=== PATIENT | male | born 1995 | race Caucasian/White ===

== ENCOUNTER 2017-02-05 17:08 | Inpatient (IN) | payer OTHER ==
--- NOTE | 2017-02-05 18:01 | EDPHY ---
Mental Health General Previous Psychiatric History: substance abuse Smoking Status: Never smoked Time Patient Placed on Detainer: 17:53 Time Patient Placed on M1 Hold: 22:00 Course: patient remained stable over course of my shift, eval by mental health, awaiting transfer to inpatient facility Narrative: CHIEF COMPLAINT: mental health evaluation HISTORY OF PRESENT ILLNESS: 21-year-old male presents emergency department escorted by security after he was found naked outside of the emergency department. When approached by security the patient reports he took his clothes off because he is worried about a spider bite on his shoulder. The patient reports he noticed this spider bite yesterday, he denies fevers or chills, nausea or vomiting. Patient also reports he thinks he may have typhoid as he has been drinking out of the river. He states this is just a generalized feeling he has "that will cause problems in the future". When questioned about his allergies to medications he states he is allergic to acetaminophen and Aleve , when asked about the reactions he has to these he states it is "some manipulative force with a delicate plan to do the most harm to me". Patient reports "light kava use and light marijuana use". Pt reports he ate a kava pill 3 hours prior to arrival. He denies other drug use. Patient reports he was seen by a psychiatrist last week that was forced upon him due to probation. He denies previous mental health diagnosis. Patient denies auditory or visual hallucinations, he denies homicidal or suicidal ideations. REVIEW OF SYSTEMS: A comprehensive 10 point review of systems is otherwise negative aside from elements mentioned in the history of present illness. Physical Exam Gen: Alert and Oriented, NAD HEENT: PERRL, moist mucous membranes NECK: no meningismus CV: regular rate and regular rhythm PULM: CTAB, no wheezes ABDOMEN: soft, non tender to palpation, BS present BACK: Nontender NEURO: Neurologically grossly intact EXTREMITIES: normal appearing SKIN: Mild Sunburn to upper back and shoulders, small 1 cm x 1 cm area of mild erythema with central scab to posterior right shoulder, no surrounding erythema , no fluctuance, no drainage, nontender PSYCH: Suspicious affect. (Yeny Salazar) Medical Decision Making: Patient has been evaluated by [facility] and has been placed on an M1 hold. [address] [place] [address] has accepted him and he is pending transfer. (Yeny Salazar) 0500: This patient accepted by Dr. Nicole inpatient psychiatric services. Emtala form filled out. Appropriate transfer be set up. Patient be transported to [address] [place] [address]. (Joe Carlton) - Objective Vital Signs: Initial Vital Signs Temperature (C) 36.6 C 02/05/17 17:13 Heart Rate 67 02/05/17 17:13 Respiratory Rate 18 02/05/17 17:13 Blood Pressure 143/89 H 02/05/17 17:13 O2 Sat (%) 97 02/05/17 17:13 O2 Delivery Mode Room Air Allergies/Adverse Reactions: acetaminophen [From Tylenol] Allergy (Verified 02/05/17 17:12) aleeve Allergy (Uncoded 02/05/17 17:12) Home Medications: Medication Instructions Recorded NK [No Known Home Meds] 02/05/17 Laboratory Results: Laboratory Results 02/05/17 18:00 02/05/17 18:00 02/05/17 02/05/17 02/05/17 18:00 18:00 17:55 WBC 7.06 10^3/uL 10^3/uL (3.80-9.50) RBC 5.07 10^6/uL 10^6/uL (4.40-6.38) Hgb 15.0 g/dL g/dL (13.7-17.5) Hct 43.1 % % (40.0-51.0) MCV 85.0 fL fL (81.5-99.8) MCH 29.6 pg pg (27.9-34.1) MCHC 34.8 g/dL g/dL (32.4-36.7) RDW 13.2 % % (11.5-15.2) Plt Count 188 10^3/uL 10^3/uL (150-400) MPV 10.7 fL fL (8.7-11.7) Neut % (Auto) 56.5 % % (39.3-74.2) Lymph % (Auto) 28.2 % % (15.0-45.0) [place] % (Auto) 13.9 % H % (4.5-13.0) Eos % (Auto) 0.4 % L % (0.6-7.6) Baso % (Auto) 0.7 % % (0.3-1.7) Nucleat RBC Rel Count 0.0 % % (0.0-0.2) Absolute Neuts (auto) 3.99 10^3/uL 10^3/uL (1.70-6.50) Absolute Lymphs (auto) 1.99 10^3/uL 10^3/uL (1.00-3.00) Absolute Monos (auto) 0.98 10^3/uL H 10^3/uL (0.30-0.80) Absolute Eos (auto) 0.03 10^3/uL 10^3/uL (0.03-0.40) Absolute Basos (auto) 0.05 10^3/uL 10^3/uL (0.02-0.10) Absolute Nucleated RBC 0.00 10^3/uL 10^3/uL (0-0.01) Immature Gran % 0.3 % % (0.0-1.1) Seg Neutrophils % 52 % % Band Neutrophils % 4 % % Lymphocytes % 29 % % Monocytes % 13 % % Eosinophils % 1 % % Metamyelocytes % 1 % % Immature Gran # 0.02 10^3/uL 10^3/uL (0.00-0.10) Absolute Seg Neuts 3.67 10^/uL 10^/uL (1.70-6.50) Absolute Band Neuts 0.28 10^3/uL 10^3/uL (0.00-0.70) Absolute Lymphocytes 2.05 10^3/uL 10^3/uL (1.00-3.00) Absolute Monocytes 0.92 10^3/uL H 10^3/uL (0.30-0.80) Absolute Eosinophils 0.07 10^3/uL 10^3/uL (0.03-0.40) Absolute Metamyelocyte 0.07 10^3/mL H 10^3/mL (0.00-0.00) RBC/WBC/PLT Morphology NORMAL (NORMAL) Atypical Lymphocytes 1+ H Platelet Estimate ADEQUATE (ADEQ) Sodium 141 mEq/L mEq/L (134-144) Potassium 3.7 mEq/L mEq/L (3.5-5.2) Chloride 108 mEq/L mEq/L (97-110) Carbon Dioxide 17 mEq/l L mEq/l (22-31) Anion Gap 16 mEq/L mEq/L (8-16) BUN 22 mg/dL mg/dL (7-23) Creatinine 1.0 mg/dL mg/dL (0.7-1.3) Estimated GFR > 60 Glucose 73 mg/dL mg/dL (70-100) Calcium 9.8 mg/dL mg/dL (8.5-10.4) Urine Opiates Screen NEGATIVE (NEGATIVE) Urine Barbiturates NEGATIVE (NEGATIVE) Ur Phencyclidine Scrn NEGATIVE (NEGATIVE) Ur Amphetamine Screen NEGATIVE (NEGATIVE) U Benzodiazepines Scrn NEGATIVE (NEGATIVE) Urine Cocaine Screen NEGATIVE (NEGATIVE) U Marijuana (THC) Screen NON-NEGATIVE H (NEGATIVE) Ethyl Alcohol < 10 mg/dL mg/dL (0-10) Departure - Departure Disposition: [facility] IP Clinical Impression: Acute psychosis Condition: Fair Referrals: NOEL PRICE [Other] - As per Instructions
[2017-02-05 18:28] LABS: % IMMATURE GRANULYOCYTES 0.3 % (0.0-1.1); ABSOLUTE IMMATURE GRANULOCYTES 0.02 10^3/uL (0.00-0.10); ADD DIFF? NO; ADD MORPH? NO; ADD SCAN? YES; FRAGMENT RBC FLAG 0 (0-99); HEMATOCRIT 43.1 % (40.0-51.0); LEFT SHIFT FLG 0 (0-99); LIPEMIA HEMOLYSIS FLAG 90 (0-99); MEAN CELL HEMOGLOBIN 29.6 pg (27.9-34.1); MEAN CELL HEMOGLOBIN CONCENTR. 34.8 g/dL (32.4-36.7); MEAN PLATELET VOLUME 10.7 fL (8.7-11.7); PLATELET CLUMPS FLAG 0 (0-99); PLATELET COUNT 188 10^3/uL (150-400); RED BLOOD CELL COUNT 5.07 10^6/uL (4.40-6.38); RED CELL DISTRIBUTION WIDTH 13.2 % (11.5-15.2)
[2017-02-05 18:32] LABS: ATYPICAL LYMPHOCYTE FLAG 170 (0-99)
[2017-02-05 18:41] LABS: ANION GAP 16 mEq/L (8-16); CALCIUM 9.8 mg/dL (8.5-10.4); CARBON DIOXIDE 17 mEq/l (22-31); CHLORIDE 108 mEq/L (97-110); ETHANOL SERUM < 10 mg/dL (0-10); GLOMERULAR FILTRATION RATE > 60; GLUCOSE 73 mg/dL (70-100); POTASSIUM 3.7 mEq/L (3.5-5.2); SODIUM 141 mEq/L (134-144)
[2017-02-05 19:12] LABS: SCAN POSITIVE
[2017-02-05 19:15] LABS: PLATELET ESTIMATE ADEQUATE (ADEQ)
[2017-02-06] MEDS ORDERED: MAG HYDROX/AL HYDROX/SIMETH 30 ML UDCUP PO PRN (15:26)
[2017-02-06] MEDS ORDERED: NICOTINE POLACRILEX 2 MG GUM B PRN (15:26)
[2017-02-06] MEDS ORDERED: MAGNESIUM HYDROXIDE 30 ML UDCUP PO PRN (15:26)
[2017-02-06] MEDS: OLANZapine DISINTEGR 10 MG TAB PO PRN (16:23)
[2017-02-06] MEDS: OLANZapine DISINTEGR 10 MG TAB PO SCH (20:47)
--- NOTE | 2017-02-07 00:07 | BAPA ---
[f rep st] ADMISSION PSYCHIATRIC ASSESSMENT DATE OF SERVICE: 02/06/2017 CHIEF COMPLAINT: "There was a spider bite on my back...they asked me if I wanted a psych evaluation, I said yes because I needed some intellectual stimulation." HISTORY OF PRESENT ILLNESS: Patient is a 21-year-old male who presented to the emergency department escorted by security after he was found naked outside of the [facility] Emergency Department. He reports he took his clothes off because he was worried about a spider bite on his shoulder. He also reported concerns about having typhoid as he had been drinking out of the river, and states this was just a generalized feeling he had "that will cause problems in the future." He admitted to "light cava use and light marijuana use", eating a cava pill 3 hours prior to arrival. He denied other drug use. He reported having seen a psychiatrist 1 week ago, which was forced upon him due to probation, but denies any mental health diagnosis. On evaluation by [facility], patient described himself as "home free" rather than homeless, and has been living in the [facility]. He denied any suicidal or homicidal ideation, he denied any auditory or visual hallucinations. ED physician requested psychiatric evaluation due to patient's bizarre behavior and responses to questions. He reported apparently a recent legal charge related to public disturbance, stating he had to use the restroom somewhere near [address] [place] [address] in [place] and did not have shoes and attempted to go into perhaps a restaurant. "I wanted to use the restroom and they kicked me out. I felt the collective need to experience their absolute will, so I did it in the middle of the sidewalk." ED physician asked if he experienced auditory or visual hallucinations, and patient nodded his head yes and said nothing thereafter. When asked why he was on the inpatient psychiatric unit, patient responded "I do not know." He denied feeling depressed, denied psychotic symptoms of auditory or visual hallucinations, although stated he gets "a little paranoid", and defines this by "I get indecisive and cannot think, I feel impurity in my body and it takes over my thoughts." He endorsed periods of rafael lasting "3 seconds...these are moments of our evolution, it just happened." Uneaten lunch tray noted in his room. When asked about the food, he stated he last had a meal 4 days ago and has been sustaining himself with cava pills. He responded "I have no live food, all I have is cava...I have a problem with food and the carcinogens in it, the earth is not pure any more, there is so much energy in the air, which is dampened by this concoction we are all being given...aluminum , GMO's, phosphorus." He expressed paranoia about food and air quality and may not have been eating recently because of this. PRIOR PSYCHIATRIC HISTORY: As noted in HPI, patient apparently had psychiatric assessment mandated by probation 1 week ago, although more details are not known at this time. He states he saw a therapist at that time on [address] in [place], Shaun Greene, PhD. He also admitted having an evaluation at [facility] perhaps in the psychiatric emergency department twice in the recent past. Regarding previous psychiatric admissions, patient became acutely tearful and anxious, responding "they forced me into handcuffs, gave me pills and injections if I did not take the pills." He seemed very traumatized by whatever previous inpatient psychiatric hospitalization he experienced, which may have involved restraints and involuntary medication. He added that his parents would not help him, although indicated they were involved in helping get him hospitalized. This was in [place], [place] where he lived prior to driving to [place] in September 2016. MEDICATIONS: Currently none. PAST MEDICAL HISTORY: Recent spider bite evaluated in the emergency room. Patient also noted with several abrasions healing on his arms. Medical evaluation unremarkable with unremarkable labs in ED and urine toxicology screen positive for marijuana. ALLERGIES: Reported to Aleve and acetaminophen with reactions being described as "some manipulative force with a delicate plan to do the most harm to me." PRIOR SUBSTANCE USE HISTORY: Patient denied any history of IV drug abuse. He reports having "tried all", but none in 3 months and no history of substance use treatment. Denies alcohol use. Reports using Kava and THC with recent ingestion of Kava pill prior to admission and "light" marijuana use. Urine tox screen positive for marijuana. FAMILY PSYCHIATRIC HISTORY: Patient denies knowing of any mental illness in his family. LEGAL HISTORY: Patient reports being on probation for disturbing the peace, being charged for apparently urinating in public as noted in HPI. SOCIAL HISTORY: Patient is single. Never . No children. Moved grew up in [place], [place] where he has family support, was living with his parents until September when he left for [place] "for the music." He reports that he would like to go back to [place] "if I could get back, but I want to go to [place], [place], [facility], [facility], and [place]" as well. He has recently been homeless. 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 His eye contact was good. Speech was normal rate and volume and articulate. Mood was "very hungry" and when asked why he did not eat lunch, he again stated "I was waiting for dumper mold cleaner food." Mood was "fine." Affect was labile, initially euthymic and engaged, although somewhat apprehensive, abruptly becoming tearful, sobbing, and anxious when relating past inpatient psychiatric hospitalization experience. Required redirection and support to regain control of affect. Did add "I am in an adolescent mind set and my thoughts get more primitive as my mind cycles." Denied current auditory or visual hallucinations. Denied any suicidal thoughts or thoughts to harm others. Thoughts were illogical, disorganized with paranoid content. Insight and judgment were both poor. Cognition was generally intact. When discussing medications and possible benefits for his current mind state, he began laughing almost uncontrollably, reporting that "I started vibing off Zyprexa" at the mention of the name of this medication. He denies ever having heard of this medication before and apparently found it amusing. IMPRESSION: A 21-year-old male with history of previous psychiatric admission, presents for admission on M1 for grave disability due to bizarre thoughts, disorganized thoughts, and labile affect. Patient endorsed recent use of Kava and marijuana, which may have contributed to his current presentation, however, clinically the patient seems he may likely have an underlying primary psychiatric disorder more than attributable to substance use , although substance use possibly contributing to destabilization. May have underlying psychotic or mood disorder. He is felt to be gravely disabled, unable to care for himself as noted by his disheveled state, thin habitus, poor oral intake and continued expressed paranoia about food. It seems he had been living with his family until September of this year when he left and came to [place], and has apparently been homeless using substances intermittently and having progressive worsening of his mental illness. ADMISSION DIAGNOSIS: 1. 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 Rule out bipolar mood disorder, manic with psychotic features. 2. Cannabis use disorder, unspecified. Rule out substance induced psychotic disorder. PLAN: Will admit to [address] [place] [address]. Continue M1. Hold and place on safety precautions. Consistently denied any suicidal ideation. No history of harm to others so presently no suicide precautions or assault precautions are indicated. Discussed briefly medication options with the patient and recommended Zyprexa, will start 10 mg p.o. q.h.s. with 5 mg p.o. q.4-6 hours p.r.n., also lorazepam p.r.n. Will informally monitor oral intake and percent of meal eaten. Patient appears thin, expresses paranoia about food, and as if he has not been taking good care of himself recently. Also apparently has not been sleeping well having reported 3 hours per night recently. Likely continues on probation so this will need to be addressed, and perhaps compliance with mental health treatment can continue to be a part of his probation as it seems to already be. Collateral from family, prior hospitalization and recent evaluation by therapist last week would be beneficial in further assessing and treating this patient. Estimated length of stay is 5-7 days. /[id number]/MODL MTDD
--- NOTE | 2017-02-07 18:44 | BCON ---
[f rep st] BEHAVIORAL HEALTH CONSULTATION INTERNAL MEDICINE CONSULTATION DATE OF CONSULTATION: 02/07/2017 REASON FOR REFERRAL: Medical clearance for inpatient behavioral health stay. REFERRING PHYSICIAN: Dr. Nicole. HISTORY OF PRESENT ILLNESS: The patient presented to the [facility] emergency departm ent 2 days ago. He was found naked outside of the emergency department. He thought he had a spider bite on his shoulder. He made bizarre statements, was evaluated by the mental health team and admi tted for further psychiatric care. He currently complains of fatigue and says that he does not have energy for "the tasks at hand," ges turing to the table in his room with multiple food items on it. PAST MEDICAL HISTORY: He denies any history of any medical illnesses. PAST SURGICAL HISTORY: He denies surgeries. MEDICATIONS: He denies taking any medications. ALLERGIES: He reports allergies to acetaminophen and naproxen. SOCIAL HISTORY: He is homeless. He reports he has had several years of college. He is a tobacco s moker as well as a marijuana smoker and he reports he uses the drug Kava. FAMILY HISTORY: Noncontributory. REVIEW OF SYSTEMS: He denies fevers or chills. He denies recent weight change. He denies nausea, vomiting, constipation, or diarrhea. He denies cough or dyspnea. Otherwise, a 10-point review of s tems is negative. PHYSICAL EXAMINATION: VITAL SIGNS: Blood pressure is 98/57 at 6 o'clock this morning. His heart r ate was 51, his respiratory rate was 14, his oxygen saturation was 94% on room air. His temperature was 36.4 degrees centigrade. His weight is 58.9 kg for a body mass index of 19.2. GENERAL: This is an underweight-appearing man standing in his room, sits down for the exam, cooperative and in no acute distress, with long unkempt hair. HEENT: Extraocular movements are intact. Pupils are equal , round, and reactive to light. Mucous membranes are moist. Dentition is in good condition. NECK: Supple. HEART: Regular rate and rhythm with no murmurs, rubs, or gallops. LUNGS: Clear to ausc ultation bilaterally. ABDOMEN: Scaphoid, soft, nontender, nondistended, with normoactive bowel dylan nds. EXTREMITIES: There is no cyanosis, clubbing, or edema. NEUROLOGIC: He is alert and generall y oriented to situation. Orientation to date was not checked. Cranial nerves 2-[address] There is no focal weakness. Sensation is intact to light touch, and gait is within normal limi ts. SKIN: He has several abrasions with eschar, one over his left scapula, another over his left e lbow, with no signs of infection. LABORATORY STUDIES: Laboratory studies drawn in the emergency department 2 days ago: CBC was overa ll within normal limits. He had a minor elevation of absolute monocytes of no clinical significance . Serum chemistry showed a slightly low carbon dioxide at 17 and otherwise renal function and elect rolytes were within normal limits. Toxicology screen in the serum was negative for ethyl alcohol, i n the urine was non-negative for marijuana but was negative for other substances of abuse. ASSESSMENT/RECOMMENDATIONS: 1. Mental health issues, pending further evaluation and management per Psychiatry and the mental [facility] team. 2. Underweight status. Unclear whether he has had recent weight loss. Could be related to his psy chiatric condition. Advise observing his oral intake to ensure that he is getting adequate nutritio n. 3. Fatigue of unclear etiology. If it does not improve, consider checking a thyroid though he does not otherwise overtly appear to be hypothyroid. 4. Abrasions. Expect these to heal with no intervention indicated. 5. Polysubstance abuse with a urine toxicology screen positive for marijuana and admitted use of Ka va, which is a sedative and anxiolytic. He might benefit from specific substance abuse treatment. 6. Tobacco dependence syndrome. Advised smoking cessation. I see no medical contraindications to this patient's continued stay on the inpatient [facility] service or to any psychiatric medications or procedures. Thank you very much for including me in the care of this patient. Please do not hesitate to contact me or the hospitalist service should there be need for further medical evaluation. /[id number]/MODL
[2017-02-07] MEDS: LORazepam 0.5 MG TAB PO PRN (20:36)
[2017-02-07] MEDS: OLANZapine DISINTEGR 10 MG TAB PO SCH (20:36)
--- NOTE | 2017-02-08 07:37 | SOAPPROG ---
SOAP Progress Note Assessment/Plan: Assessment: Plan: 02/07/17 09:00 DAY UPDATE: Pt presents as 21 y/o SWM admitted to on M1 for c/o acute psychotic decompensation; pt self referred to ED, found naked standing outside ED by Security in a confused/psychotic state. Apparently has been homeless for extended time, arrested for urinating in public in [place] about 1 week ago and briefly jailed, bonded out and received mandated psychiatric assessment by Shaun Greene PhD - result unknown and no known rx intervention. Intake from parents per CC earlier revealed pt has been deteriorating over past 2 years following attending a rave constitution party in October 2014 and ingesting unknown drugs at the time. He was previously arrested in [place] in ? 2015 for defecating in ;public and placed on probation. Father drove pt back to family home in [place] after this incident but pt apparently had to return to [place] to serve out his probation. History is unclear but pt does currently have a probation office in [place]. Parents also report pt was hospitalized as a psychiatric inpt prior to returning to [place] in September 2016; was dx'd with Bipolar Disorder but apparently left shortly after [place] and has been in [place] for past 5 months. 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 Pt medically cleared, presented to [facility] and on admission to as evidencing PI,circumscribed persecutory and grandiose delusions, affective lability, ? mood elevation, dysphoria, MIRTHA, overly abstract and bizarre thought process, expressing wish to return to family home and parents. He reportedly is an only child; has attended college but not graduated; uses TLC and Kava regularly but no other known drugs; is clinically underweight and been compromised in capactiy to care for himself on the streeets for extended time. Physical exam negative for active problems, TS + for [facility] only and other lab screen unremarkable. ON EXAM: presents as thin, unkempt young adult male; speaks softly and with vaqueness; does say early on he does not want any medications but did state he has taken Zydis/Zyprexa 10 mg hs twice since admission; thought pattern evidences MIRTHA and overly abstract ideation, no overt H/D eleicited; currently dysphoric wiht observed manic elements. Did give verbal permission for Team to speak to parents. ASSESSMENT/PLAN: residual psychotic acuity - diagnosis unclear; dysphoric - dx' ed as Bipolar by previous workup; have not r/o'd substance use problems/ no change in meds or management today; will expedite expansion of data base from collaterals Objective: Vital Signs Temp Pulse Resp BP Pulse Ox 36.6 C 47 L 16 103/69 98 02/08/17 06:00 02/08/17 06:00 02/08/17 06:00 02/08/17 06:00 02/08/17 06:00 ICD10 Worksheet Patient Problems: Problems Problem Status Onset Acute psychosis Acute
--- NOTE | 2017-02-08 11:53 | SOAPPROG ---
SOAP Progress Note Assessment/Plan: Assessment: Plan: 02/07/17 09:00 DAY UPDATE: Pt presents as 21 y/o SWM admitted to on M1 for c/o acute psychotic decompensation; pt self referred to ED, found naked standing outside ED by Security in a confused/psychotic state. Apparently has been homeless for extended time, arrested for urinating in public in [place] about 1 week ago and briefly jailed, bonded out and received mandated psychiatric assessment by Shaun Greene PhD - result unknown and no known rx intervention. Intake from parents per CC earlier revealed pt has been deteriorating over past 2 years following attending a rave republican in October 2014 and ingesting unknown drugs at the time. He was previously arrested in [place] in ? 2015 for defecating in ;public and placed on probation. Father drove pt back to family home in [place] after this incident but pt apparently had to return to [place] to serve out his probation. History is unclear but pt does currently have a probation office in [place]. Parents also report pt was hospitalized as a psychiatric inpt prior to returning to [place] in September 2016; was dx'd with Bipolar Disorder but apparently left shortly after DC and has been in [place] for past 5 months. 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 Pt medically cleared, presented to [facility] and on admission to as evidencing PI,circumscribed persecutory and grandiose delusions, affective lability, ? mood elevation, dysphoria, MIRTHA, overly abstract and bizarre thought process, expressing wish to return to family home and parents. He reportedly is an only child; has attended college but not graduated; uses TLC and Kava regularly but no other known drugs; is clinically underweight and been compromised in capacity to care for himself on the streets for extended time. Physical exam negative for active problems, TS + for [facility] only and other lab screen unremarkable. ON EXAM: presents as thin, unkempt young adult male; speaks softly and with vaqueness; does say early on he does not want any medications but did state he has taken Zydis/Zyprexa 10 mg hs twice since admission; thought pattern evidences MIRTHA and overly abstract ideation, no overt H/D elicited; currently dysphoric wiht observed manic elements. Did give verbal permission for Team to speak to parents. ASSESSMENT/PLAN: residual psychotic acuity - diagnosis unclear; dysphoric - dx' ed as Bipolar by previous workup; have not r/o'd substance use problems/ no change in meds or management today; will expedite expansion of data base from collaterals 02/08/17 11:45 DAY ' UPDATE/EXAM: Nursing reports pt continues to comply with Zydis 10 mg hs, is observed to be calmer, more organized albeit with residual overly abstract and bizarre thought process; other psychotic elements not r/o'd/ on direct exam indeed presents with better organization of thought process b/w residual MIRTHA; responsive to reintegrative support; states he wishes to return home when stable and again agrees with my contacting parents; acknowledges that life course has been downhill after trying to attend college in fall 2013 and that a factor in slide was the heavy use of cannabis. ASSESSMENT/PLAN: early phase improvement/ no change in meds or management; case review with emphasis on mobilizing pt into milieu and group program; call to FOC pending Objective: Vital Signs Temp Pulse Resp BP Pulse Ox 36.6 C 47 L 16 103/69 98 02/08/17 06:00 02/08/17 06:00 02/08/17 06:00 02/08/17 06:00 02/08/17 06:00 ICD10 Worksheet Patient Problems: Problems Problem Status Onset Acute psychosis Acute
[2017-02-08] MEDS: OLANZapine DISINTEGR 10 MG TAB PO SCH (22:00)
--- NOTE | 2017-02-09 08:49 | SOAPPROG ---
SOAP Progress Note Assessment/Plan: Assessment: Plan: 02/07/17 09:00 DAY UPDATE: Pt presents as 21 y/o SWM admitted to on M1 for c/o acute psychotic decompensation; pt self referred to ED, found naked standing outside ED by Security in a confused/psychotic state. Apparently has been homeless for extended time, arrested for urinating in public in [place] about 1 week ago and briefly jailed, bonded out and received mandated psychiatric assessment by Shaun Greene PhD - result unknown and no known rx intervention. Intake from parents per CC earlier revealed pt has been deteriorating over past 2 years following attending a rave democrat in October 2014 and ingesting unknown drugs at the time. He was previously arrested in [place] in ? 2015 for defecating in ;public and placed on probation. Father drove pt back to family home in [place] after this incident but pt apparently had to return to [place] to serve out his probation. History is unclear but pt does currently have a probation office in [place]. Parents also report pt was hospitalized as a psychiatric inpt prior to returning to [place] in September 2016; was dx'd with Bipolar Disorder but apparently left shortly after DC and has been in [place] for past 5 months. 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 Pt medically cleared, presented to [facility] and on admission to as evidencing PI,circumscribed persecutory and grandiose delusions, affective lability, ? mood elevation, dysphoria, MIRTHA, overly abstract and bizarre thought process, expressing wish to return to family home and parents. He reportedly is an only child; has attended college but not graduated; uses TLC and Kava regularly but no other known drugs; is clinically underweight and been compromised in capacity to care for himself on the streets for extended time. Physical exam negative for active problems, TS + for [facility] only and other lab screen unremarkable. ON EXAM: presents as thin, unkempt young adult male; speaks softly and with vaqueness; does say early on he does not want any medications but did state he has taken Zydis/Zyprexa 10 mg hs twice since admission; thought pattern evidences MIRTHA and overly abstract ideation, no overt H/D elicited; currently dysphoric wiht observed manic elements. Did give verbal permission for Team to speak to parents. ASSESSMENT/PLAN: residual psychotic acuity - diagnosis unclear; dysphoric - dx' ed as Bipolar by previous workup; have not r/o'd substance use problems/ no change in meds or management today; will expedite expansion of data base from collaterals 02/08/17 11:45 DAY UPDATE/EXAM: Nursing reports pt continues to comply with Zydis 10 mg hs, is observed to be calmer, more organized albeit with residual overly abstract and bizarre thought process; other psychotic elements not r/o'd/ on direct exam indeed presents with better organization of thought process b/w residual MIRTHA; responsive to reintegrative support; states he wishes to return home when stable and again agrees with my contacting parents; acknowledges that life course has been downhill after trying to attend college in fall 2013 and that a factor in slide was the heavy use of cannabis. ASSESSMENT/PLAN: early phase improvement/ no change in meds or management; case review with emphasis on mobilizing pt into milieu and group program; call to FOC pending 02/09/17 DAY UPDATE/EXAM: Objective: Vital Signs Temp Pulse Resp BP Pulse Ox 36.6 C 50 L 16 99/62 L 100 02/09/17 06:00 02/09/17 06:00 02/09/17 06:00 02/09/17 06:00 02/09/17 06:00 ICD10 Worksheet Patient Problems: Problems Problem Status Onset Acute psychosis Acute
--- NOTE | 2017-02-09 15:29 | SOAPPROG ---
SOAP Progress Note Assessment/Plan: Assessment: Plan: 02/07/17 09:00 DAY UPDATE: Pt presents as 21 y/o SWM admitted to on M1 for c/o acute psychotic decompensation; pt self referred to ED, found naked standing outside ED by Security in a confused/psychotic state. Apparently has been homeless for extended time, arrested for urinating in public in [place] about 1 week ago and briefly jailed, bonded out and received mandated psychiatric assessment by Shaun Greene PhD - result unknown and no known rx intervention. Intake from parents per CC earlier revealed pt has been deteriorating over past 2 years following attending a rave republican in October 2014 and ingesting unknown drugs at the time. He was previously arrested in [place] in ? 2015 for defecating in ;public and placed on probation. Father drove pt back to family home in [place] after this incident but pt apparently had to return to [place] to serve out his probation. History is unclear but pt does currently have a probation office in [place]. Parents also report pt was hospitalized as a psychiatric inpt prior to returning to [place] in September 2016; was dx'd with Bipolar Disorder but apparently left shortly after DC and has been in [place] for past 5 months. 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 Pt medically cleared, presented to [facility] and on admission to as evidencing PI,circumscribed persecutory and grandiose delusions, affective lability, ? mood elevation, dysphoria, MIRTHA, overly abstract and bizarre thought process, expressing wish to return to family home and parents. He reportedly is an only child; has attended college but not graduated; uses TLC and Kava regularly but no other known drugs; is clinically underweight and been compromised in capacity to care for himself on the streets for extended time. Physical exam negative for active problems, TS + for [facility] only and other lab screen unremarkable. ON EXAM: presents as thin, unkempt young adult male; speaks softly and with vaqueness; does say early on he does not want any medications but did state he has taken Zydis/Zyprexa 10 mg hs twice since admission; thought pattern evidences MIRTHA and overly abstract ideation, no overt H/D elicited; currently dysphoric wiht observed manic elements. Did give verbal permission for Team to speak to parents. ASSESSMENT/PLAN: residual psychotic acuity - diagnosis unclear; dysphoric - dx' ed as Bipolar by previous workup; have not r/o'd substance use problems/ no change in meds or management today; will expedite expansion of data base from collaterals 02/08/17 11:45 DAY UPDATE/EXAM: Nursing reports pt continues to comply with Zydis 10 mg hs, is observed to be calmer, more organized albeit with residual overly abstract and bizarre thought process; other psychotic elements not r/o'd/ on direct exam indeed presents with better organization of thought process b/w residual MIRTHA; responsive to reintegrative support; states he wishes to return home when stable and again agrees with my contacting parents; acknowledges that life course has been downhill after trying to attend college in fall 2013 and that a factor in slide was the heavy use of cannabis. ASSESSMENT/PLAN: early phase improvement/ no change in meds or management; case review with emphasis on mobilizing pt into milieu and group program; call to FOC pending 02/09/17 DAY UPDATE/EXAM: Nursing re;ports patient more organized, in behavioral control, compliant with cares but did not take hs Zyprexa and is currntly resenting as meds resistant/ on direct exam pt is calm, cooperative, conversant; minimizing problems and p;resenting in mildly defiant manner his right "to live my life" and preoccupied with DC; does stay in affective control and evidences prepsychotic denial/distortion and circumscribed IOR. INTAKE/FOC: Father describes pt's acutely psychotic state last year when bonded out of [place] [facility] and driven back to [place].; pt hospitalized acutely for 13 days and given Risperdal, Depakote, and depot Invega, stabilized but did not follow up with outpt rx; father states he did not noticeably regress prior to returning to [place] in September to complete his probationary period and was relatively uninformed about pt's course since arriving back in [place] 4 + months ago. ASSESSMENT/PLAN: further improved descriptively with minimal residual residual psychosis and no evident residual rafael; is now meds resistant/ will contact pt' s PO to clarify further history of present illness and remaining terms of probation; will reassess approach to current meds resistance. Objective: Vital Signs Temp Pulse Resp BP Pulse Ox 36.6 C 50 L 16 99/62 L 100 02/09/17 06:00 02/09/17 06:00 02/09/17 06:00 02/09/17 06:00 02/09/17 06:00 ICD10 Worksheet Patient Problems: Problems Problem Status Onset Acute psychosis Acute
[2017-02-09] MEDS: OLANZapine DISINTEGR 10 MG TAB PO SCH (20:41)
[2017-02-09] MEDS: LORazepam 0.5 MG TAB PO PRN (20:58)
--- NOTE | 2017-02-10 07:59 | SOAPPROG ---
SOAP Progress Note Assessment/Plan: Assessment: Plan: 02/07/17 09:00 DAY UPDATE: Pt presents as 21 y/o SWM admitted to on M1 for c/o acute psychotic decompensation; pt self referred to ED, found naked standing outside ED by Security in a confused/psychotic state. Apparently has been homeless for extended time, arrested for urinating in public in [place] about 1 week ago and briefly jailed, bonded out and received mandated psychiatric assessment by Shaun Greene PhD - result unknown and no known rx intervention. Intake from parents per CC earlier revealed pt has been deteriorating over past 2 years following attending a rave republican in October 2014 and ingesting unknown drugs at the time. He was previously arrested in [place] in ? 2015 for defecating in ;public and placed on probation. Father drove pt back to family home in [place] after this incident but pt apparently had to return to [place] to serve out his probation. History is unclear but pt does currently have a probation office in [place]. Parents also report pt was hospitalized as a psychiatric inpt prior to returning to [place] in September 2016; was dx'd with Bipolar Disorder but apparently left shortly after DC and has been in [place] for past 5 months. 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 Pt medically cleared, presented to [facility] and on admission to as evidencing PI,circumscribed persecutory and grandiose delusions, affective lability, ? mood elevation, dysphoria, MIRTHA, overly abstract and bizarre thought process, expressing wish to return to family home and parents. He reportedly is an only child; has attended college but not graduated; uses TLC and Kava regularly but no other known drugs; is clinically underweight and been compromised in capacity to care for himself on the streets for extended time. Physical exam negative for active problems, TS + for [facility] only and other lab screen unremarkable. ON EXAM: presents as thin, unkempt young adult male; speaks softly and with vaqueness; does say early on he does not want any medications but did state he has taken Zydis/Zyprexa 10 mg hs twice since admission; thought pattern evidences MIRTHA and overly abstract ideation, no overt H/D elicited; currently dysphoric wiht observed manic elements. Did give verbal permission for Team to speak to parents. ASSESSMENT/PLAN: residual psychotic acuity - diagnosis unclear; dysphoric - dx' ed as Bipolar by previous workup; have not r/o'd substance use problems/ no change in meds or management today; will expedite expansion of data base from collaterals 02/08/17 11:45 DAY UPDATE/EXAM: Nursing reports pt continues to comply with Zydis 10 mg hs, is observed to be calmer, more organized albeit with residual overly abstract and bizarre thought process; other psychotic elements not r/o'd/ on direct exam indeed presents with better organization of thought process b/w residual MIRTHA; responsive to reintegrative support; states he wishes to return home when stable and again agrees with my contacting parents; acknowledges that life course has been downhill after trying to attend college in fall 2013 and that a factor in slide was the heavy use of cannabis. ASSESSMENT/PLAN: early phase improvement/ no change in meds or management; case review with emphasis on mobilizing pt into milieu and group program; call to FOC pending 02/09/17 DAY UPDATE/EXAM: Nursing reports patient more organized, in behavioral control, compliant with cares but did not take hs Zyprexa and is currently resistant / on direct exam pt is calm, cooperative, conversant; minimizing problems and presenting in mildly defiant manner his right "to live my life" and preoccupied with DC; does stay in affective control and evidences prepsychotic/psychotic denial/distortion and circumscribed IOR. INTAKE/FOC: Father describes pt's acutely psychotic state last year when bonded out of [place] [facility] and driven back to [place].; pt hospitalized acutely for 13 days and given Risperdal, Depakote, and depot Invega, stabilized but did not follow up with outpt rx; father states he did not noticeably regress prior to returning to [place] in September to complete his probationary period and was relatively uninformed about pt's course since arriving back in [place] 4 + months ago. ASSESSMENT/PLAN: further improved descriptively b/w residual residual psychosis and no evident residual rafael; is now meds resistant/ will contact pt's PO to clarify further history of present illness and remaining terms of probation; will reassess approach to current meds resistance. 02/10/17 DAY ' UPDATE/EXAM: Objective: Vital Signs Temp Pulse Resp BP Pulse Ox 36.7 C 43 L 14 105/66 98 02/10/17 06:25 02/10/17 06:25 02/10/17 06:25 02/10/17 06:25 02/10/17 06:25 ICD10 Worksheet Patient Problems: Problems Problem Status Onset Acute psychosis Acute
[2017-02-10] MEDS: DIVALPROEX ER 250 MG TAB PO SCH ×3 (10:55→21:00)
[2017-02-10] MEDS: OLANZapine DISINTEGR 5 MG TAB PO SCH ×2 (10:55→11:36)
--- NOTE | 2017-02-10 12:44 | SOAPPROG ---
SOAP Progress Note Assessment/Plan: Assessment: Plan: 02/07/17 09:00 DAY UPDATE: Pt presents as 21 y/o SWM admitted to on M1 for c/o acute psychotic decompensation; pt self referred to ED, found naked standing outside ED by Security in a confused/psychotic state. Apparently has been homeless for extended time, arrested for urinating in public in [place] about 1 week ago and briefly jailed, bonded out and received mandated psychiatric assessment by Shaun Greene PhD - result unknown and no known rx intervention. Intake from parents per CC earlier revealed pt has been deteriorating over past 2 years following attending a rave republican in October 2014 and ingesting unknown drugs at the time. He was previously arrested in [place] in ? 2015 for defecating in ;public and placed on probation. Father drove pt back to family home in [place] after this incident but pt apparently had to return to [place] to serve out his probation. History is unclear but pt does currently have a probation office in [place]. Parents also report pt was hospitalized as a psychiatric inpt prior to returning to [place] in September 2016; was dx'd with Bipolar Disorder but apparently left shortly after DC and has been in [place] for past 5 months. 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 Pt medically cleared, presented to [facility] and on admission to as evidencing PI,circumscribed persecutory and grandiose delusions, affective lability, ? mood elevation, dysphoria, MIRTHA, overly abstract and bizarre thought process, expressing wish to return to family home and parents. He reportedly is an only child; has attended college but not graduated; uses TLC and Kava regularly but no other known drugs; is clinically underweight and been compromised in capacity to care for himself on the streets for extended time. Physical exam negative for active problems, TS + for [facility] only and other lab screen unremarkable. ON EXAM: presents as thin, unkempt young adult male; speaks softly and with vaqueness; does say early on he does not want any medications but did state he has taken Zydis/Zyprexa 10 mg hs twice since admission; thought pattern evidences MIRTHA and overly abstract ideation, no overt H/D elicited; currently dysphoric wiht observed manic elements. Did give verbal permission for Team to speak to parents. ASSESSMENT/PLAN: residual psychotic acuity - diagnosis unclear; dysphoric - dx' ed as Bipolar by previous workup; have not r/o'd substance use problems/ no change in meds or management today; will expedite expansion of data base from collaterals 02/08/17 11:45 DAY UPDATE/EXAM: Nursing reports pt continues to comply with Zydis 10 mg hs, is observed to be calmer, more organized albeit with residual overly abstract and bizarre thought process; other psychotic elements not r/o'd/ on direct exam indeed presents with better organization of thought process b/w residual MIRTHA; responsive to reintegrative support; states he wishes to return home when stable and again agrees with my contacting parents; acknowledges that life course has been downhill after trying to attend college in fall 2013 and that a factor in slide was the heavy use of cannabis. ASSESSMENT/PLAN: early phase improvement/ no change in meds or management; case review with emphasis on mobilizing pt into milieu and group program; call to FOC pending 02/09/17 DAY UPDATE/EXAM: Nursing reports patient more organized, in behavioral control, compliant with cares but did not take hs Zyprexa and is currently resistant / on direct exam pt is calm, cooperative, conversant; minimizing problems and presenting in mildly defiant manner his right "to live my life" and preoccupied with DC; does stay in affective control and evidences prepsychotic/psychotic denial/distortion and circumscribed IOR. INTAKE/FOC: Father describes pt's acutely psychotic state last year when bonded out of [place] [facility] and driven back to [place].; pt hospitalized acutely for 13 days and given Risperdal, Depakote, and depot Invega, stabilized but did not follow up with outpt rx; father states he did not noticeably regress prior to returning to [place] in September to complete his probationary period and was relatively uninformed about pt's course since arriving back in [place] 4 + months ago. ASSESSMENT/PLAN: further improved descriptively b/w residual residual psychosis and no evident residual rafael; is now meds resistant/ will contact pt's PO to clarify further history of present illness and remaining terms of probation; will reassess approach to current meds resistance. 02/10/17 09:00 DAY ' UPDATE/EXAM: Nursing reports pt slept well; he did comply with hs Zyprexa 10 mg last night; observed to have residual MIRTHA and mix of grandiose and persecutory delusion by staff - see excellent progress not by mental health tech yesterday/ on direct exam today pt presents as better kempt, initially pleasant but becomes more irritable and disorganized when he understands he will not be immediately DC'd but extended to further stabilize and arrive at a definitive DC plan; he does understand the discussion icluding meds review and my intention of increase Zyprexa dose and adding Depakote bid; he initially agrees and then states he may resist. ASSESSMENT/PLAN: residual psychotic acuity and affective lability/ increase Zyprexa to 5/10 mg qd, begin Depakote trial @ 250 mg bid; CP reviewed with Nursing in Rounds; will request COM Objective: Vital Signs Temp Pulse Resp BP Pulse Ox 36.7 C 43 L 14 105/66 98 02/10/17 06:25 02/10/17 06:25 02/10/17 06:25 02/10/17 06:25 02/10/17 06:25 ICD10 Worksheet Patient Problems: Problems Problem Status Onset Acute psychosis Acute
[2017-02-10] MEDS: OLANZapine DISINTEGR 10 MG TAB PO SCH (20:59)
[2017-02-10] MEDS: LORazepam 0.5 MG TAB PO PRN (21:11)
--- NOTE | 2017-02-11 06:55 | SOAPPROG ---
SOAP Progress Note Assessment/Plan: Assessment: Plan: 02/07/17 09:00 DAY UPDATE: Pt presents as 21 y/o SWM admitted to on M1 for c/o acute psychotic decompensation; pt self referred to ED, found naked standing outside ED by Security in a confused/psychotic state. Apparently has been homeless for extended time, arrested for urinating in public in [place] about 1 week ago and briefly jailed, bonded out and received mandated psychiatric assessment by Shaun Greene PhD - result unknown and no known rx intervention. Intake from parents per CC earlier revealed pt has been deteriorating over past 2 years following attending a rave republican in October 2014 and ingesting unknown drugs at the time. He was previously arrested in [place] in ? 2015 for defecating in ;public and placed on probation. Father drove pt back to family home in [place] after this incident but pt apparently had to return to [place] to serve out his probation. History is unclear but pt does currently have a probation office in [place]. Parents also report pt was hospitalized as a psychiatric inpt prior to returning to [place] in September 2016; was dx'd with Bipolar Disorder but apparently left shortly after DC and has been in [place] for past 5 months. Interim history unclear but pt is known to be homeless and without local support system [employer] and not thought to be engaged in any treatment since returning to [place]. Pt medically cleared, presented to [facility] and on admission to as evidencing PI,circumscribed persecutory and grandiose delusions, affective lability, ? mood elevation, dysphoria, MIRTHA, overly abstract and bizarre thought process, expressing wish to return to family home and parents. He reportedly is an only child; has attended college but not graduated; uses TLC and Kava regularly but no other known drugs; is clinically underweight and been compromised in capacity to care for himself on the streets for extended time. Physical exam negative for active problems, TS + for [facility] only and other lab screen unremarkable. ON EXAM: presents as thin, unkempt young adult male; speaks softly and with vaqueness; does say early on he does not want any medications but did state he has taken Zydis/Zyprexa 10 mg hs twice since admission; thought pattern evidences MIRTHA and overly abstract ideation, no overt H/D elicited; currently dysphoric wiht observed manic elements. Did give verbal permission for Team to speak to parents. ASSESSMENT/PLAN: residual psychotic acuity - diagnosis unclear; dysphoric - dx' ed as Bipolar by previous workup; have not r/o'd substance use problems/ no change in meds or management today; will expedite expansion of data base from collaterals 02/08/17 11:45 DAY UPDATE/EXAM: Nursing reports pt continues to comply with Zydis 10 mg hs, is observed to be calmer, more organized albeit with residual overly abstract and bizarre thought process; other psychotic elements not r/o'd/ on direct exam indeed presents with better organization of thought process b/w residual MIRTHA; responsive to reintegrative support; states he wishes to return home when stable and again agrees with my contacting parents; acknowledges that life course has been downhill after trying to attend college in fall 2013 and that a factor in slide was the heavy use of cannabis. ASSESSMENT/PLAN: early phase improvement/ no change in meds or management; case review with emphasis on mobilizing pt into milieu and group program; call to FOC pending 02/09/17 DAY UPDATE/EXAM: Nursing reports patient more organized, in behavioral control, compliant with cares but did not take hs Zyprexa and is currently resistant / on direct exam pt is calm, cooperative, conversant; minimizing problems and presenting in mildly defiant manner his right "to live my life" and preoccupied with DC; does stay in affective control and evidences prepsychotic/psychotic denial/distortion and circumscribed IOR. INTAKE/FOC: Father describes pt's acutely psychotic state last year when bonded out of [place] [facility] and driven back to [place].; pt hospitalized acutely for 13 days and given Risperdal, Depakote, and depot Invega, stabilized but did not follow up with outpt rx; father states he did not noticeably regress prior to returning to [place] in September to complete his probationary period and was relatively uninformed about pt's course since arriving back in [place] 4 + months ago. ASSESSMENT/PLAN: further improved descriptively b/w residual residual psychosis and no evident residual rafael; is now meds resistant/ will contact pt's PO to clarify further history of present illness and remaining terms of probation; will reassess approach to current meds resistance. 02/10/17 09:00 DAY ' UPDATE/EXAM: Nursing reports pt slept well; he did comply with hs Zyprexa 10 mg last night; observed to have residual MIRTHA and mix of grandiose and persecutory delusion by staff - see excellent progress note by mental health tech yesterday / on direct exam today pt presents as better kempt, initially pleasant but becomes more irritable and disorganized when he understands he will not be immediately DC'd but extended to further stabilize and arrive at a definitive DC plan; he does understand the discussion including meds review and my intention to increase Zyprexa dose and adding Depakote bid; he initially agrees and then states he may resist. ASSESSMENT/PLAN: residual psychotic acuity and affective lability/ increase Zyprexa to 5/10 mg qd, begin Depakote trial @ 250 mg bid; CP reviewed with Nursing in Rounds; will request COM 02/11/17 DAY UPDATE/EXAM: Objective: Vital Signs Temp Pulse Resp BP Pulse Ox 36.8 C 53 L 14 106/59 L 99 02/11/17 06:00 02/11/17 06:00 02/11/17 06:00 02/11/17 06:00 02/11/17 06:00 ICD10 Worksheet Patient Problems: Problems Problem Status Onset Acute psychosis Acute
[2017-02-11] MEDS: OLANZapine DISINTEGR 5 MG TAB PO SCH ×2 (08:17→09:30)
[2017-02-11] MEDS: DIVALPROEX ER 250 MG TAB PO SCH ×3 (08:24→19:25)
[2017-02-11] MEDS: LORazepam 0.5 MG TAB PO PRN (12:20)
--- NOTE | 2017-02-11 13:32 | SOAPPROG ---
SOAP Progress Note Assessment/Plan: Assessment: Plan: 02/07/17 09:00 DAY UPDATE: Pt presents as 21 y/o SWM admitted to on M1 for c/o acute psychotic decompensation; pt self referred to ED, found naked standing outside ED by Security in a confused/psychotic state. Apparently has been homeless for extended time, arrested for urinating in public in [place] about 1 week ago and briefly jailed, bonded out and received mandated psychiatric assessment by Shaun Greene PhD - result unknown and no known rx intervention. Intake from parents per CC earlier revealed pt has been deteriorating over past 2 years following attending a rave alliance party in October 2014 and ingesting unknown drugs at the time. He was previously arrested in [place] in ? 2015 for defecating in ;public and placed on probation. Father drove pt back to family home in [place] after this incident but pt apparently had to return to [place] to serve out his probation. History is unclear but pt does currently have a probation office in [place]. Parents also report pt was hospitalized as a psychiatric inpt prior to returning to [place] in September 2016; was dx'd with Bipolar Disorder but apparently left shortly after DC and has been in [place] for past 5 months. Interim history unclear but pt is known to be homeless and without local support system [employer] and not thought to be engaged in any treatment since returning to [place]. Pt medically cleared, presented to [facility] and on admission to as evidencing PI,circumscribed persecutory and grandiose delusions, affective lability, ? mood elevation, dysphoria, MIRTHA, overly abstract and bizarre thought process, expressing wish to return to family home and parents. He reportedly is an only child; has attended college but not graduated; uses TLC and Kava regularly but no other known drugs; is clinically underweight and been compromised in capacity to care for himself on the streets for extended time. Physical exam negative for active problems, TS + for [facility] only and other lab screen unremarkable. ON EXAM: presents as thin, unkempt young adult male; speaks softly and with vaqueness; does say early on he does not want any medications but did state he has taken Zydis/Zyprexa 10 mg hs twice since admission; thought pattern evidences MIRTHA and overly abstract ideation, no overt H/D elicited; currently dysphoric wiht observed manic elements. Did give verbal permission for Team to speak to parents. ASSESSMENT/PLAN: residual psychotic acuity - diagnosis unclear; dysphoric - dx' ed as Bipolar by previous workup; have not r/o'd substance use problems/ no change in meds or management today; will expedite expansion of data base from collaterals 02/08/17 11:45 DAY UPDATE/EXAM: Nursing reports pt continues to comply with Zydis 10 mg hs, is observed to be calmer, more organized albeit with residual overly abstract and bizarre thought process; other psychotic elements not r/o'd/ on direct exam indeed presents with better organization of thought process b/w residual MIRTHA; responsive to reintegrative support; states he wishes to return home when stable and again agrees with my contacting parents; acknowledges that life course has been downhill after trying to attend college in fall 2013 and that a factor in slide was the heavy use of cannabis. ASSESSMENT/PLAN: early phase improvement/ no change in meds or management; case review with emphasis on mobilizing pt into milieu and group program; call to FOC pending 02/09/17 DAY UPDATE/EXAM: Nursing reports patient more organized, in behavioral control, compliant with cares but did not take hs Zyprexa and is currently resistant / on direct exam pt is calm, cooperative, conversant; minimizing problems and presenting in mildly defiant manner his right "to live my life" and preoccupied with DC; does stay in affective control and evidences prepsychotic/psychotic denial/distortion and circumscribed IOR. INTAKE/FOC: Father describes pt's acutely psychotic state last year when bonded out of [place] half-way and driven back to [place].; pt hospitalized acutely for 13 days and given Risperdal, Depakote, and depot Invega, stabilized but did not follow up with outpt rx; father states he did not noticeably regress prior to returning to [place] in September to complete his probationary period and was relatively uninformed about pt's course since arriving back in [place] 4 + months ago. ASSESSMENT/PLAN: further improved descriptively b/w residual residual psychosis and no evident residual rafael; is now meds resistant/ will contact pt's PO to clarify further history of present illness and remaining terms of probation; will reassess approach to current meds resistance. 02/10/17 09:00 DAY ' UPDATE/EXAM: Nursing reports pt slept well; he did comply with hs Zyprexa 10 mg last night; observed to have residual MIRTHA and mix of grandiose and persecutory delusion by staff - see excellent progress note by mental health tech yesterday / on direct exam today pt presents as better kempt, initially pleasant but becomes more irritable and disorganized when he understands he will not be immediately DC'd but extended to further stabilize and arrive at a definitive DC plan; he does understand the discussion including meds review and my intention to increase Zyprexa dose and adding Depakote bid; he initially agrees and then states he may resist. ASSESSMENT/PLAN: residual psychotic acuity and affective lability/ increase Zyprexa to 5/10 mg qd, begin Depakote trial @ 250 mg bid; CP reviewed with Nursing in Rounds; will request COM 02/11/17 12:00 DAY 02/18' UPDATE/EXAM: Nursing reports pt did comply with hs Zyprexa after refusing AM med yesterday/ on direct exam today is initially resistant to meds and evidencing the residual PI and grandiose thought pattern despite my focussed and very direct comments about the need for medications and that inpt rx will be extended to stabilize MS; pt then electively requested second meeting and said he would comply and generally was more conversant; he does understand that I will request COM as a backup strategy given his fluidity of accepting meds; he also understands that I did reach [facility] for further intake early this AM; finally during third cntact we had a brief speaker phone contact with his supportive grandmother who stated she could transport him back to [place] to family home at [place]. ASSESSMENT/PLAN: residual MS instability but today agreeing to take medications / no change in meds or management plan Objective: Vital Signs Temp Pulse Resp BP Pulse Ox 36.8 C 53 L 14 106/59 L 99 02/11/17 06:00 02/11/17 06:00 02/11/17 06:00 02/11/17 06:00 02/11/17 06:00 ICD10 Worksheet Patient Problems: Problems Problem Status Onset Acute psychosis Acute
[2017-02-11] MEDS: OLANZapine DISINTEGR 10 MG TAB PO SCH (19:26)
--- NOTE | 2017-02-12 06:43 | SOAPPROG ---
SOAP Progress Note Assessment/Plan: Assessment: Plan: 02/07/17 09:00 DAY UPDATE: Pt presents as 21 y/o SWM admitted to on M1 for c/o acute psychotic decompensation; pt self referred to ED, found naked standing outside ED by Security in a confused/psychotic state. Apparently has been homeless for extended time, arrested for urinating in public in [place] about 1 week ago and briefly jailed, bonded out and received mandated psychiatric assessment by Shaun Greene PhD - result unknown and no known rx intervention. Intake from parents per CC earlier revealed pt has been deteriorating over past 2 years following attending a rave libertarian in October 2014 and ingesting unknown drugs at the time. He was previously arrested in [place] in ? 2015 for defecating in ;public and placed on probation. Father drove pt back to family home in [place] after this incident but pt apparently had to return to [place] to serve out his probation. History is unclear but pt does currently have a probation office in [place]. Parents also report pt was hospitalized as a psychiatric inpt prior to returning to [place] in September 2016; was dx'd with Bipolar Disorder but apparently left shortly after DC and has been in [place] for past 5 months. Interim history unclear but pt is known to be homeless and without local support system [employer] and not thought to be engaged in any treatment since returning to [place]. Pt medically cleared, presented to [facility] and on admission to as evidencing PI,circumscribed persecutory and grandiose delusions, affective lability, ? mood elevation, dysphoria, MIRTHA, overly abstract and bizarre thought process, expressing wish to return to family home and parents. He reportedly is an only child; has attended college but not graduated; uses TLC and Kava regularly but no other known drugs; is clinically underweight and been compromised in capacity to care for himself on the streets for extended time. Physical exam negative for active problems, TS + for [facility] only and other lab screen unremarkable. ON EXAM: presents as thin, unkempt young adult male; speaks softly and with vaqueness; does say early on he does not want any medications but did state he has taken Zydis/Zyprexa 10 mg hs twice since admission; thought pattern evidences MIRTHA and overly abstract ideation, no overt H/D elicited; currently dysphoric wiht observed manic elements. Did give verbal permission for Team to speak to parents. ASSESSMENT/PLAN: residual psychotic acuity - diagnosis unclear; dysphoric - dx' ed as Bipolar by previous workup; have not r/o'd substance use problems/ no change in meds or management today; will expedite expansion of data base from collaterals 02/08/17 11:45 DAY UPDATE/EXAM: Nursing reports pt continues to comply with Zydis 10 mg hs, is observed to be calmer, more organized albeit with residual overly abstract and bizarre thought process; other psychotic elements not r/o'd/ on direct exam indeed presents with better organization of thought process b/w residual MIRTHA; responsive to reintegrative support; states he wishes to return home when stable and again agrees with my contacting parents; acknowledges that life course has been downhill after trying to attend college in fall 2013 and that a factor in slide was the heavy use of cannabis. ASSESSMENT/PLAN: early phase improvement/ no change in meds or management; case review with emphasis on mobilizing pt into milieu and group program; call to FOC pending 02/09/17 DAY UPDATE/EXAM: Nursing reports patient more organized, in behavioral control, compliant with cares but did not take hs Zyprexa and is currently resistant / on direct exam pt is calm, cooperative, conversant; minimizing problems and presenting in mildly defiant manner his right "to live my life" and preoccupied with DC; does stay in affective control and evidences prepsychotic/psychotic denial/distortion and circumscribed IOR. INTAKE/FOC: Father describes pt's acutely psychotic state last year when bonded out of [place] snf and driven back to [place].; pt hospitalized acutely for 13 days and given Risperdal, Depakote, and depot Invega, stabilized but did not follow up with outpt rx; father states he did not noticeably regress prior to returning to [place] in September to complete his probationary period and was relatively uninformed about pt's course since arriving back in [place] 4 + months ago. ASSESSMENT/PLAN: further improved descriptively b/w residual residual psychosis and no evident residual rafael; is now meds resistant/ will contact pt's PO to clarify further history of present illness and remaining terms of probation; will reassess approach to current meds resistance. 02/10/17 09:00 DAY ' UPDATE/EXAM: Nursing reports pt slept well; he did comply with hs Zyprexa 10 mg last night; observed to have residual MIRTHA and mix of grandiose and persecutory delusion by staff - see excellent progress note by mental health tech yesterday / on direct exam today pt presents as better kempt, initially pleasant but becomes more irritable and disorganized when he understands he will not be immediately DC'd but extended to further stabilize and arrive at a definitive DC plan; he does understand the discussion including meds review and my intention to increase Zyprexa dose and adding Depakote bid; he initially agrees and then states he may resist. ASSESSMENT/PLAN: residual psychotic acuity and affective lability/ increase Zyprexa to 5/10 mg qd, begin Depakote trial @ 250 mg bid; CP reviewed with Nursing in Rounds; will request COM 02/11/17 12:00 DAY 02/18' UPDATE/EXAM: Nursing reports pt did comply with hs Zyprexa after refusing AM med yesterday/ on direct exam today is initially resistant to meds and evidencing the residual PI and grandiose thought pattern despite my focussed and very direct comments about the need for medications and that inpt rx will be extended to stabilize MS; pt then electively requested second meeting and said he would comply and generally was more conversant; he does understand that I will request COM as a backup strategy given his fluidity of accepting meds; he also understands that I did reach [facility] for further intake early this AM; finally during third contact we had a brief speaker phone contact with his supportive grandmother who stated she could transport him back to [place] to family home at [place]. ASSESSMENT/PLAN: residual MS instability but today agreeing to take medications / no change in meds or management pl Objective: Vital Signs Temp Pulse Resp BP Pulse Ox 36.4 C 74 98 H 125/78 H 12 L 02/12/17 06:00 02/12/17 06:00 02/12/17 06:00 02/12/17 06:00 02/12/17 06:00 ICD10 Worksheet Patient Problems: Problems Problem Status Onset Acute psychosis Acute
[2017-02-12] MEDS: DIVALPROEX ER 250 MG TAB PO SCH ×2 (08:30→10:55)
[2017-02-12] MEDS: OLANZapine DISINTEGR 5 MG TAB PO SCH ×2 (08:30→10:55)
[2017-02-12] MEDS: OLANZapine DISINTEGR 10 MG TAB PO PRN (12:43)
--- NOTE | 2017-02-12 16:07 | SOAPPROG ---
SOAP Progress Note Assessment/Plan: Assessment: Plan: 02/12/17 16:06 Remains labile, resistant to medications. Will d/c VPA and move Zyprexa to HS only. Hope to build therapeutic alliance to foster future compliance. Subjective: Pt seen, discussed with staff, chart reviewed. I had a lengthy, pleasant, if disjointed conversation with him. 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 Very sensitive to interpersonal interactions or direct staff feedback. He refused meds this morning stating the VPA "shuts me down emotionally" and the Zyprexa "makes me stupid." He states he will no long take any medications at first, but later agrees to a single dose of Zyprexa at HS. States he will not take VPA no matter what. Objective: Vital Signs Temp Pulse Resp BP Pulse Ox 36.4 C 74 98 H 125/78 H 12 L 02/12/17 06:00 02/12/17 06:00 02/12/17 06:00 02/12/17 06:00 02/12/17 06:00 - Time Spent With Patient Time Spent With Patient: 25" - Pending Discharge Pending Discharge Within 24 Hours: No Pending Discharge Within 48 Hours: No ICD10 Worksheet Patient Problems: Problems Problem Status Onset Acute psychosis Acute
[2017-02-12] MEDS: OLANZapine DISINTEGR 10 MG TAB PO SCH ×2 (21:32→21:38)
--- NOTE | 2017-02-13 11:57 | SOAPPROG ---
SOAP Progress Note Assessment/Plan: Assessment: Plan: 02/12/17 16:06 Remains labile, resistant to medications. Will d/c VPA and move Zyprexa to HS only. Hope to build therapeutic alliance to foster future compliance. 02/13/17 11:57 No change. Refusing all meds. CCM. Likely petition for COM. Subjective: Pt seen, discussed with staff. Bright and cheerful. Took a PRN dose of Zyprexa yesterday due to "dark thoughts" and states, "It put me in an even darker place." Refused HS dose and now states he will no longer take any meds whatsoever. Calmer, less emotional, less intrusive. Isolates frequently in his room to avoid "negative energy" from other patients. Objective: Vital Signs Temp Pulse Resp BP Pulse Ox 36.8 C 53 L 98 H 98/57 L 98 02/13/17 06:00 02/13/17 06:00 02/12/17 06:00 02/13/17 06:00 02/13/17 06:00 - Time Spent With Patient Time Spent With Patient: 15" ICD10 Worksheet Patient Problems: Problems Problem Status Onset Acute psychosis Acute
[2017-02-13] MEDS: OLANZapine DISINTEGR 10 MG TAB PO SCH (22:46)
--- NOTE | 2017-02-14 06:40 | SOAPPROG ---
SOAP Progress Note Assessment/Plan: Assessment: Plan: 02/07/17 09:00 DAY UPDATE: Pt presents as 21 y/o SWM admitted to on M1 for c/o acute psychotic decompensation; pt self referred to ED, found naked standing outside ED by Security in a confused/psychotic state. Apparently has been homeless for extended time, arrested for urinating in public in [place] about 1 week ago and briefly jailed, bonded out and received mandated psychiatric assessment by Shaun Greene PhD - result unknown and no known rx intervention. Intake from parents per CC earlier revealed pt has been deteriorating over past 2 years following attending a rave green party in October 2014 and ingesting unknown drugs at the time. He was previously arrested in [place] in ? 2015 for defecating in ;public and placed on probation. Father drove pt back to family home in [place] after this incident but pt apparently had to return to [place] to serve out his probation. History is unclear but pt does currently have a probation office in [place]. Parents also report pt was hospitalized as a psychiatric inpt prior to returning to [place] in September 2016; was dx'd with Bipolar Disorder but apparently left shortly after DC and has been in [place] for past 5 months. Interim history unclear but pt is known to be homeless and without local support system [employer] and not thought to be engaged in any treatment since returning to [place]. Pt medically cleared, presented to [facility] and on admission to as evidencing PI,circumscribed persecutory and grandiose delusions, affective lability, ? mood elevation, dysphoria, MIRTHA, overly abstract and bizarre thought process, expressing wish to return to family home and parents. He reportedly is an only child; has attended college but not graduated; uses TLC and Kava regularly but no other known drugs; is clinically underweight and been compromised in capacity to care for himself on the streets for extended time. Physical exam negative for active problems, TS + for [facility] only and other lab screen unremarkable. ON EXAM: presents as thin, unkempt young adult male; speaks softly and with vaqueness; does say early on he does not want any medications but did state he has taken Zydis/Zyprexa 10 mg hs twice since admission; thought pattern evidences MIRTHA and overly abstract ideation, no overt H/D elicited; currently dysphoric wiht observed manic elements. Did give verbal permission for Team to speak to parents. ASSESSMENT/PLAN: residual psychotic acuity - diagnosis unclear; dysphoric - dx' ed as Bipolar by previous workup; have not r/o'd substance use problems/ no change in meds or management today; will expedite expansion of data base from collaterals 02/08/17 11:45 DAY UPDATE/EXAM: Nursing reports pt continues to comply with Zydis 10 mg hs, is observed to be calmer, more organized albeit with residual overly abstract and bizarre thought process; other psychotic elements not r/o'd/ on direct exam indeed presents with better organization of thought process b/w residual MIRTHA; responsive to reintegrative support; states he wishes to return home when stable and again agrees with my contacting parents; acknowledges that life course has been downhill after trying to attend college in fall 2013 and that a factor in slide was the heavy use of cannabis. ASSESSMENT/PLAN: early phase improvement/ no change in meds or management; case review with emphasis on mobilizing pt into milieu and group program; call to FOC pending 02/09/17 DAY UPDATE/EXAM: Nursing reports patient more organized, in behavioral control, compliant with cares but did not take hs Zyprexa and is currently resistant / on direct exam pt is calm, cooperative, conversant; minimizing problems and presenting in mildly defiant manner his right "to live my life" and preoccupied with DC; does stay in affective control and evidences prepsychotic/psychotic denial/distortion and circumscribed IOR. INTAKE/FOC: Father describes pt's acutely psychotic state last year when bonded out of [place] [facility] and driven back to [place].; pt hospitalized acutely for 13 days and given Risperdal, Depakote, and depot Invega, stabilized but did not follow up with outpt rx; father states he did not noticeably regress prior to returning to [place] in September to complete his probationary period and was relatively uninformed about pt's course since arriving back in [place] 4 + months ago. ASSESSMENT/PLAN: further improved descriptively b/w residual residual psychosis and no evident residual rafael; is now meds resistant/ will contact pt's PO to clarify further history of present illness and remaining terms of probation; will reassess approach to current meds resistance. 02/10/17 09:00 DAY ' UPDATE/EXAM: Nursing reports pt slept well; he did comply with hs Zyprexa 10 mg last night; observed to have residual MIRTHA and mix of grandiose and persecutory delusion by staff - see excellent progress note by mental health tech yesterday / on direct exam today pt presents as better kempt, initially pleasant but becomes more irritable and disorganized when he understands he will not be immediately DC'd but extended to further stabilize and arrive at a definitive DC plan; he does understand the discussion including meds review and my intention to increase Zyprexa dose and adding Depakote bid; he initially agrees and then states he may resist. ASSESSMENT/PLAN: residual psychotic acuity and affective lability/ increase Zyprexa to 5/10 mg qd, begin Depakote trial @ 250 mg bid; CP reviewed with Nursing in Rounds; will request COM 02/11/17 12:00 DAY UPDATE/EXAM: Nursing reports pt did comply with hs Zyprexa after refusing AM med yesterday/ on direct exam today is initially resistant to meds and evidencing the residual PI and grandiose thought pattern despite my focussed and very direct comments about the need for medications and that inpt rx will be extended to stabilize MS; pt then electively requested second meeting and said he would comply and generally was more conversant; he does understand that I will request COM as a backup strategy given his fluidity of accepting meds; he also understands that I did reach [facility] for further intake early this AM; finally during third contact we had a brief speaker phone contact with his supportive grandmother who stated she could transport him back to [place] to family home at [place]. ASSESSMENT/PLAN: residual MS instability but today agreeing to take medications / no change in meds or management plan 02/14/17 DAY UPDATE/EXAM: Objective: Vital Signs Temp Pulse Resp BP Pulse Ox 36.8 C 53 L 98 H 98/57 L 98 02/13/17 06:00 02/13/17 06:00 02/12/17 06:00 02/13/17 06:00 02/13/17 06:00 ICD10 Worksheet Patient Problems: Problems Problem Status Onset Acute psychosis Acute
[2017-02-14] MEDS: ARIPiprazole 2 MG TAB PO SCH ×2 (12:47→21:28)
[2017-02-14] MEDS: DIVALPROEX NA 125 MG CAP.SPRINKLE PO SCH ×2 (12:47→21:28)
--- NOTE | 2017-02-14 16:00 | SOAPPROG ---
SOAP Progress Note Assessment/Plan: Assessment: Plan: 02/07/17 09:00 DAY UPDATE: Pt presents as 21 y/o SWM admitted to on M1 for c/o acute psychotic decompensation; pt self referred to ED, found naked standing outside ED by Security in a confused/psychotic state. Apparently has been homeless for extended time, arrested for urinating in public in [place] about 1 week ago and briefly jailed, bonded out and received mandated psychiatric assessment by Shaun Greene PhD - result unknown and no known rx intervention. Intake from parents per CC earlier revealed pt has been deteriorating over past 2 years following attending a rave constitution party in October 2014 and ingesting unknown drugs at the time. He was previously arrested in [place] in ? 2015 for defecating in ;public and placed on probation. Father drove pt back to family home in [place] after this incident but pt apparently had to return to [place] to serve out his probation. History is unclear but pt does currently have a probation office in [place]. Parents also report pt was hospitalized as a psychiatric inpt prior to returning to [place] in September 2016; was dx'd with Bipolar Disorder but apparently left shortly after DC and has been in [place] for past 5 months. Interim history unclear but pt is known to be homeless and without local support system [employer] and not thought to be engaged in any treatment since returning to [place]. Pt medically cleared, presented to [facility] and on admission to as evidencing PI,circumscribed persecutory and grandiose delusions, affective lability, ? mood elevation, dysphoria, MIRTHA, overly abstract and bizarre thought process, expressing wish to return to family home and parents. He reportedly is an only child; has attended college but not graduated; uses TLC and Kava regularly but no other known drugs; is clinically underweight and been compromised in capacity to care for himself on the streets for extended time. Physical exam negative for active problems, TS + for [facility] only and other lab screen unremarkable. ON EXAM: presents as thin, unkempt young adult male; speaks softly and with vaqueness; does say early on he does not want any medications but did state he has taken Zydis/Zyprexa 10 mg hs twice since admission; thought pattern evidences MIRTHA and overly abstract ideation, no overt H/D elicited; currently dysphoric wiht observed manic elements. Did give verbal permission for Team to speak to parents. ASSESSMENT/PLAN: residual psychotic acuity - diagnosis unclear; dysphoric - dx' ed as Bipolar by previous workup; have not r/o'd substance use problems/ no change in meds or management today; will expedite expansion of data base from collaterals 02/08/17 11:45 DAY UPDATE/EXAM: Nursing reports pt continues to comply with Zydis 10 mg hs, is observed to be calmer, more organized albeit with residual overly abstract and bizarre thought process; other psychotic elements not r/o'd/ on direct exam indeed presents with better organization of thought process b/w residual MIRTHA; responsive to reintegrative support; states he wishes to return home when stable and again agrees with my contacting parents; acknowledges that life course has been downhill after trying to attend college in fall 2013 and that a factor in slide was the heavy use of cannabis. ASSESSMENT/PLAN: early phase improvement/ no change in meds or management; case review with emphasis on mobilizing pt into milieu and group program; call to FOC pending 02/09/17 DAY UPDATE/EXAM: Nursing reports patient more organized, in behavioral control, compliant with cares but did not take hs Zyprexa and is currently resistant / on direct exam pt is calm, cooperative, conversant; minimizing problems and presenting in mildly defiant manner his right "to live my life" and preoccupied with DC; does stay in affective control and evidences prepsychotic/psychotic denial/distortion and circumscribed IOR. INTAKE/FOC: Father describes pt's acutely psychotic state last year when bonded out of [place] halfway and driven back to [place].; pt hospitalized acutely for 13 days and given Risperdal, Depakote, and depot Invega, stabilized but did not follow up with outpt rx; father states he did not noticeably regress prior to returning to [place] in September to complete his probationary period and was relatively uninformed about pt's course since arriving back in [place] 4 + months ago. ASSESSMENT/PLAN: further improved descriptively b/w residual residual psychosis and no evident residual rafael; is now meds resistant/ will contact pt's PO to clarify further history of present illness and remaining terms of probation; will reassess approach to current meds resistance. 02/10/17 09:00 DAY ' UPDATE/EXAM: Nursing reports pt slept well; he did comply with hs Zyprexa 10 mg last night; observed to have residual MIRTHA and mix of grandiose and persecutory delusion by staff - see excellent progress note by mental health tech yesterday / on direct exam today pt presents as better kempt, initially pleasant but becomes more irritable and disorganized when he understands he will not be immediately DC'd but extended to further stabilize and arrive at a definitive DC plan; he does understand the discussion including meds review and my intention to increase Zyprexa dose and adding Depakote bid; he initially agrees and then states he may resist. ASSESSMENT/PLAN: residual psychotic acuity and affective lability/ increase Zyprexa to 5/10 mg qd, begin Depakote trial @ 250 mg bid; CP reviewed with Nursing in Rounds; will request COM 02/11/17 12:00 DAY UPDATE/EXAM: Nursing reports pt did comply with hs Zyprexa after refusing AM med yesterday/ on direct exam today is initially resistant to meds and evidencing the residual PI and grandiose thought pattern despite my focussed and very direct comments about the need for medications and that inpt rx will be extended to stabilize MS; pt then electively requested second meeting and said he would comply and generally was more conversant; he does understand that I will request COM as a backup strategy given his fluidity of accepting meds; he also understands that I did reach [facility] for further intake early this AM; finally during third contact we had a brief speaker phone contact with his supportive grandmother who stated she could transport him back to [place] to family home at [place]. ASSESSMENT/PLAN: residual MS instability but today agreeing to take medications / no change in meds or management plan 02/14/17 11:00 DAY UPDATE/EXAM: Nursing reports pt has continued to resist taking medications; o/w has been in behavioral control but continues with observable lability, MIRTHA, intrusiveness/ on direct exam does evidence child-like and loosely associated thought process; does agree to take lower dose of Depakote( 125 mg bid) and change from Depakote to Abilify (2mg bid); pt told that COM request filed today. ASSESSMENT/PLAN: residual affective and psychotic acuity/ meds prescribed as referenced; CP discussed with Nursing in Rounds Objective: Vital Signs Temp Pulse Resp BP Pulse Ox 36.6 C 63 14 123/60 H 99 02/14/17 06:00 02/14/17 06:00 02/14/17 06:00 02/14/17 06:00 02/14/17 06:00 ICD10 Worksheet Patient Problems: Problems Problem Status Onset Acute psychosis Acute
[2017-02-15] MEDS: DIVALPROEX NA 125 MG CAP.SPRINKLE PO SCH ×3 (02:07→20:49)
[2017-02-15] MEDS: ARIPiprazole 2 MG TAB PO SCH ×3 (02:07→20:49)
[2017-02-15 05:21] VITALS: RESP 16
--- NOTE | 2017-02-15 06:24 | SOAPPROG ---
SOAP Progress Note Assessment/Plan: Assessment: Plan: 02/07/17 09:00 DAY UPDATE: Pt presents as 21 y/o SWM admitted to on M1 for c/o acute psychotic decompensation; pt self referred to ED, found naked standing outside ED by Security in a confused/psychotic state. Apparently has been homeless for extended time, arrested for urinating in public in [place] about 1 week ago and briefly jailed, bonded out and received mandated psychiatric assessment by Shaun Greene PhD - result unknown and no known rx intervention. Intake from parents per CC earlier revealed pt has been deteriorating over past 2 years following attending a rave alliance party in October 2014 and ingesting unknown drugs at the time. He was previously arrested in [place] in ? 2015 for defecating in ;public and placed on probation. Father drove pt back to family home in [place] after this incident but pt apparently had to return to [place] to serve out his probation. History is unclear but pt does currently have a probation office in [place]. Parents also report pt was hospitalized as a psychiatric inpt prior to returning to [place] in September 2016; was dx'd with Bipolar Disorder but apparently left shortly after DC and has been in [place] for past 5 months. Interim history unclear but pt is known to be homeless and without local support system [employer] and not thought to be engaged in any treatment since returning to [place]. Pt medically cleared, presented to [facility] and on admission to as evidencing PI,circumscribed persecutory and grandiose delusions, affective lability, ? mood elevation, dysphoria, MIRTHA, overly abstract and bizarre thought process, expressing wish to return to family home and parents. He reportedly is an only child; has attended college but not graduated; uses TLC and Kava regularly but no other known drugs; is clinically underweight and been compromised in capacity to care for himself on the streets for extended time. Physical exam negative for active problems, TS + for [facility] only and other lab screen unremarkable. ON EXAM: presents as thin, unkempt young adult male; speaks softly and with vaqueness; does say early on he does not want any medications but did state he has taken Zydis/Zyprexa 10 mg hs twice since admission; thought pattern evidences MIRTHA and overly abstract ideation, no overt H/D elicited; currently dysphoric wiht observed manic elements. Did give verbal permission for Team to speak to parents. ASSESSMENT/PLAN: residual psychotic acuity - diagnosis unclear; dysphoric - dx' ed as Bipolar by previous workup; have not r/o'd substance use problems/ no change in meds or management today; will expedite expansion of data base from collaterals 02/08/17 11:45 DAY UPDATE/EXAM: Nursing reports pt continues to comply with Zydis 10 mg hs, is observed to be calmer, more organized albeit with residual overly abstract and bizarre thought process; other psychotic elements not r/o'd/ on direct exam indeed presents with better organization of thought process b/w residual MIRTHA; responsive to reintegrative support; states he wishes to return home when stable and again agrees with my contacting parents; acknowledges that life course has been downhill after trying to attend college in fall 2013 and that a factor in slide was the heavy use of cannabis. ASSESSMENT/PLAN: early phase improvement/ no change in meds or management; case review with emphasis on mobilizing pt into milieu and group program; call to FOC pending 02/09/17 DAY UPDATE/EXAM: Nursing reports patient more organized, in behavioral control, compliant with cares but did not take hs Zyprexa and is currently resistant / on direct exam pt is calm, cooperative, conversant; minimizing problems and presenting in mildly defiant manner his right "to live my life" and preoccupied with DC; does stay in affective control and evidences prepsychotic/psychotic denial/distortion and circumscribed IOR. INTAKE/FOC: Father describes pt's acutely psychotic state last year when bonded out of [place] snf and driven back to [place].; pt hospitalized acutely for 13 days and given Risperdal, Depakote, and depot Invega, stabilized but did not follow up with outpt rx; father states he did not noticeably regress prior to returning to [place] in September to complete his probationary period and was relatively uninformed about pt's course since arriving back in [place] 4 + months ago. ASSESSMENT/PLAN: further improved descriptively b/w residual residual psychosis and no evident residual rafael; is now meds resistant/ will contact pt's PO to clarify further history of present illness and remaining terms of probation; will reassess approach to current meds resistance. 02/10/17 09:00 DAY ' UPDATE/EXAM: Nursing reports pt slept well; he did comply with hs Zyprexa 10 mg last night; observed to have residual MIRTHA and mix of grandiose and persecutory delusion by staff - see excellent progress note by mental health tech yesterday / on direct exam today pt presents as better kempt, initially pleasant but becomes more irritable and disorganized when he understands he will not be immediately DC'd but extended to further stabilize and arrive at a definitive DC plan; he does understand the discussion including meds review and my intention to increase Zyprexa dose and adding Depakote bid; he initially agrees and then states he may resist. ASSESSMENT/PLAN: residual psychotic acuity and affective lability/ increase Zyprexa to 5/10 mg qd, begin Depakote trial @ 250 mg bid; CP reviewed with Nursing in Rounds; will request COM 02/11/17 12:00 DAY UPDATE/EXAM: Nursing reports pt did comply with hs Zyprexa after refusing AM med yesterday/ on direct exam today is initially resistant to meds and evidencing the residual PI and grandiose thought pattern despite my focussed and very direct comments about the need for medications and that inpt rx will be extended to stabilize MS; pt then electively requested second meeting and said he would comply and generally was more conversant; he does understand that I will request COM as a backup strategy given his fluidity of accepting meds; he also understands that I did reach [facility] for further intake early this AM; finally during third contact we had a brief speaker phone contact with his supportive grandmother who stated she could transport him back to [place] to family home at [place]. ASSESSMENT/PLAN: residual MS instability but today agreeing to take medications / no change in meds or management plan 02/14/17 11:00 DAY UPDATE/EXAM: Nursing reports pt has continued to resist taking medications; o/w has been in behavioral control but continues with observable lability, MIRTHA, intrusiveness/ on direct exam does evidence child-like and loosely associated thought process; does agree to take lower dose of Depakote( 125 mg bid) and change from Depakote to Abilify (2mg bid); pt told that COM request filed today. ASSESSMENT/PLAN: residual affective and psychotic acuity/ meds prescribed as referenced; CP discussed with Nursing in Rounds 02/15/17 DAY ' UPDATE/EXAM Objective: Vital Signs Temp Pulse Resp BP Pulse Ox 36.7 C 57 L 16 137/89 H 94 02/15/17 05:20 02/15/17 05:20 02/15/17 05:20 02/15/17 05:20 02/15/17 05:20 ICD10 Worksheet Patient Problems: Problems Problem Status Onset Acute psychosis Acute
--- NOTE | 2017-02-15 14:26 | SOAPPROG ---
SOAP Progress Note Assessment/Plan: Assessment: Plan: 02/07/17 09:00 DAY UPDATE: Pt presents as 21 y/o SWM admitted to on M1 for c/o acute psychotic decompensation; pt self referred to ED, found naked standing outside ED by Security in a confused/psychotic state. Apparently has been homeless for extended time, arrested for urinating in public in [place] about 1 week ago and briefly jailed, bonded out and received mandated psychiatric assessment by Shaun Greene PhD - result unknown and no known rx intervention. Intake from parents per CC earlier revealed pt has been deteriorating over past 2 years following attending a rave green party in October 2014 and ingesting unknown drugs at the time. He was previously arrested in [place] in ? 2015 for defecating in ;public and placed on probation. Father drove pt back to family home in [place] after this incident but pt apparently had to return to [place] to serve out his probation. History is unclear but pt does currently have a probation office in [place]. Parents also report pt was hospitalized as a psychiatric inpt prior to returning to [place] in September 2016; was dx'd with Bipolar Disorder but apparently left shortly after DC and has been in [place] for past 5 months. Interim history unclear but pt is known to be homeless and without local support system [employer] and not thought to be engaged in any treatment since returning to [place]. Pt medically cleared, presented to [facility] and on admission to as evidencing PI,circumscribed persecutory and grandiose delusions, affective lability, ? mood elevation, dysphoria, MIRTHA, overly abstract and bizarre thought process, expressing wish to return to family home and parents. He reportedly is an only child; has attended college but not graduated; uses TLC and Kava regularly but no other known drugs; is clinically underweight and been compromised in capacity to care for himself on the streets for extended time. Physical exam negative for active problems, TS + for [facility] only and other lab screen unremarkable. ON EXAM: presents as thin, unkempt young adult male; speaks softly and with vaqueness; does say early on he does not want any medications but did state he has taken Zydis/Zyprexa 10 mg hs twice since admission; thought pattern evidences MIRTHA and overly abstract ideation, no overt H/D elicited; currently dysphoric wiht observed manic elements. Did give verbal permission for Team to speak to parents. ASSESSMENT/PLAN: residual psychotic acuity - diagnosis unclear; dysphoric - dx' ed as Bipolar by previous workup; have not r/o'd substance use problems/ no change in meds or management today; will expedite expansion of data base from collaterals 02/08/17 11:45 DAY UPDATE/EXAM: Nursing reports pt continues to comply with Zydis 10 mg hs, is observed to be calmer, more organized albeit with residual overly abstract and bizarre thought process; other psychotic elements not r/o'd/ on direct exam indeed presents with better organization of thought process b/w residual MIRTHA; responsive to reintegrative support; states he wishes to return home when stable and again agrees with my contacting parents; acknowledges that life course has been downhill after trying to attend college in fall 2013 and that a factor in slide was the heavy use of cannabis. ASSESSMENT/PLAN: early phase improvement/ no change in meds or management; case review with emphasis on mobilizing pt into milieu and group program; call to FOC pending 02/09/17 DAY UPDATE/EXAM: Nursing reports patient more organized, in behavioral control, compliant with cares but did not take hs Zyprexa and is currently resistant / on direct exam pt is calm, cooperative, conversant; minimizing problems and presenting in mildly defiant manner his right "to live my life" and preoccupied with DC; does stay in affective control and evidences prepsychotic/psychotic denial/distortion and circumscribed IOR. INTAKE/FOC: Father describes pt's acutely psychotic state last year when bonded out of [place] senior care and driven back to [place].; pt hospitalized acutely for 13 days and given Risperdal, Depakote, and depot Invega, stabilized but did not follow up with outpt rx; father states he did not noticeably regress prior to returning to [place] in September to complete his probationary period and was relatively uninformed about pt's course since arriving back in [place] 4 + months ago. ASSESSMENT/PLAN: further improved descriptively b/w residual residual psychosis and no evident residual rafael; is now meds resistant/ will contact pt's PO to clarify further history of present illness and remaining terms of probation; will reassess approach to current meds resistance. 02/10/17 09:00 DAY ' UPDATE/EXAM: Nursing reports pt slept well; he did comply with hs Zyprexa 10 mg last night; observed to have residual MIRTHA and mix of grandiose and persecutory delusion by staff - see excellent progress note by mental health tech yesterday / on direct exam today pt presents as better kempt, initially pleasant but becomes more irritable and disorganized when he understands he will not be immediately DC'd but extended to further stabilize and arrive at a definitive DC plan; he does understand the discussion including meds review and my intention to increase Zyprexa dose and adding Depakote bid; he initially agrees and then states he may resist. ASSESSMENT/PLAN: residual psychotic acuity and affective lability/ increase Zyprexa to 5/10 mg qd, begin Depakote trial @ 250 mg bid; CP reviewed with Nursing in Rounds; will request COM 02/11/17 12:00 DAY UPDATE/EXAM: Nursing reports pt did comply with hs Zyprexa after refusing AM med yesterday/ on direct exam today is initially resistant to meds and evidencing the residual PI and grandiose thought pattern despite my focussed and very direct comments about the need for medications and that inpt rx will be extended to stabilize MS; pt then electively requested second meeting and said he would comply and generally was more conversant; he does understand that I will request COM as a backup strategy given his fluidity of accepting meds; he also understands that I did reach [facility] for further intake early this AM; finally during third contact we had a brief speaker phone contact with his supportive grandmother who stated she could transport him back to [place] to family home at [place]. ASSESSMENT/PLAN: residual MS instability but today agreeing to take medications / no change in meds or management plan 02/14/17 11:00 DAY UPDATE/EXAM: Nursing reports pt has continued to resist taking medications; o/w has been in behavioral control but continues with observable lability, MIRTHA, intrusiveness/ on direct exam does evidence child-like and loosely associated thought process; does agree to take lower dose of Depakote( 125 mg bid) and change from Depakote to Abilify (2mg bid); pt told that COM request filed today. ASSESSMENT/PLAN: residual affective and psychotic acuity/ meds prescribed as referenced; CP discussed with Nursing in Rounds 02/15/17 14:00 DAY ' UPDATE/EXAM: pt again engaging in rx plan and has decided to cooperate with meds trial today// on exam remains elevated, mildly labile, better organized having taken hs meds at 0200 and agrees to take meds in the bid regimen. ASSESSMENT/PLAN: residual acuity but currently starting to comply with meds/ no change in current meds and management plan Objective: Vital Signs Temp Pulse Resp BP Pulse Ox 36.7 C 57 L 16 137/89 H 94 02/15/17 05:20 02/15/17 05:20 02/15/17 05:20 02/15/17 05:20 02/15/17 05:20 ICD10 Worksheet Patient Problems: Problems Problem Status Onset Acute psychosis Acute
--- NOTE | 2017-02-16 06:29 | SOAPPROG ---
SOAP Progress Note Assessment/Plan: Assessment: Plan: 02/07/17 09:00 DAY UPDATE: Pt presents as 21 y/o SWM admitted to on M1 for c/o acute psychotic decompensation; pt self referred to ED, found naked standing outside ED by Security in a confused/psychotic state. Apparently has been homeless for extended time, arrested for urinating in public in [place] about 1 week ago and briefly jailed, bonded out and received mandated psychiatric assessment by Shaun Greene PhD - result unknown and no known rx intervention. Intake from parents per CC earlier revealed pt has been deteriorating over past 2 years following attending a rave alliance party in October 2014 and ingesting unknown drugs at the time. He was previously arrested in [place] in ? 2015 for defecating in ;public and placed on probation. Father drove pt back to family home in [place] after this incident but pt apparently had to return to [place] to serve out his probation. History is unclear but pt does currently have a probation office in [place]. Parents also report pt was hospitalized as a psychiatric inpt prior to returning to [place] in September 2016; was dx'd with Bipolar Disorder but apparently left shortly after DC and has been in [place] for past 5 months. Interim history unclear but pt is known to be homeless and without local support system [employer] and not thought to be engaged in any treatment since returning to [place]. Pt medically cleared, presented to [facility] and on admission to as evidencing PI,circumscribed persecutory and grandiose delusions, affective lability, ? mood elevation, dysphoria, MIRTHA, overly abstract and bizarre thought process, expressing wish to return to family home and parents. He reportedly is an only child; has attended college but not graduated; uses TLC and Kava regularly but no other known drugs; is clinically underweight and been compromised in capacity to care for himself on the streets for extended time. Physical exam negative for active problems, TS + for [facility] only and other lab screen unremarkable. ON EXAM: presents as thin, unkempt young adult male; speaks softly and with vaqueness; does say early on he does not want any medications but did state he has taken Zydis/Zyprexa 10 mg hs twice since admission; thought pattern evidences MIRTHA and overly abstract ideation, no overt H/D elicited; currently dysphoric wiht observed manic elements. Did give verbal permission for Team to speak to parents. ASSESSMENT/PLAN: residual psychotic acuity - diagnosis unclear; dysphoric - dx' ed as Bipolar by previous workup; have not r/o'd substance use problems/ no change in meds or management today; will expedite expansion of data base from collaterals 02/08/17 11:45 DAY UPDATE/EXAM: Nursing reports pt continues to comply with Zydis 10 mg hs, is observed to be calmer, more organized albeit with residual overly abstract and bizarre thought process; other psychotic elements not r/o'd/ on direct exam indeed presents with better organization of thought process b/w residual MIRTHA; responsive to reintegrative support; states he wishes to return home when stable and again agrees with my contacting parents; acknowledges that life course has been downhill after trying to attend college in fall 2013 and that a factor in slide was the heavy use of cannabis. ASSESSMENT/PLAN: early phase improvement/ no change in meds or management; case review with emphasis on mobilizing pt into milieu and group program; call to FOC pending 02/09/17 DAY UPDATE/EXAM: Nursing reports patient more organized, in behavioral control, compliant with cares but did not take hs Zyprexa and is currently resistant / on direct exam pt is calm, cooperative, conversant; minimizing problems and presenting in mildly defiant manner his right "to live my life" and preoccupied with DC; does stay in affective control and evidences prepsychotic/psychotic denial/distortion and circumscribed IOR. INTAKE/FOC: Father describes pt's acutely psychotic state last year when bonded out of [place] [facility] and driven back to [place].; pt hospitalized acutely for 13 days and given Risperdal, Depakote, and depot Invega, stabilized but did not follow up with outpt rx; father states he did not noticeably regress prior to returning to [place] in September to complete his probationary period and was relatively uninformed about pt's course since arriving back in [place] 4 + months ago. ASSESSMENT/PLAN: further improved descriptively b/w residual residual psychosis and no evident residual rafael; is now meds resistant/ will contact pt's PO to clarify further history of present illness and remaining terms of probation; will reassess approach to current meds resistance. 02/10/17 09:00 DAY ' UPDATE/EXAM: Nursing reports pt slept well; he did comply with hs Zyprexa 10 mg last night; observed to have residual MIRTHA and mix of grandiose and persecutory delusion by staff - see excellent progress note by mental health tech yesterday / on direct exam today pt presents as better kempt, initially pleasant but becomes more irritable and disorganized when he understands he will not be immediately DC'd but extended to further stabilize and arrive at a definitive DC plan; he does understand the discussion including meds review and my intention to increase Zyprexa dose and adding Depakote bid; he initially agrees and then states he may resist. ASSESSMENT/PLAN: residual psychotic acuity and affective lability/ increase Zyprexa to 5/10 mg qd, begin Depakote trial @ 250 mg bid; CP reviewed with Nursing in Rounds; will request COM 02/11/17 12:00 DAY UPDATE/EXAM: Nursing reports pt did comply with hs Zyprexa after refusing AM med yesterday/ on direct exam today is initially resistant to meds and evidencing the residual PI and grandiose thought pattern despite my focussed and very direct comments about the need for medications and that inpt rx will be extended to stabilize MS; pt then electively requested second meeting and said he would comply and generally was more conversant; he does understand that I will request COM as a backup strategy given his fluidity of accepting meds; he also understands that I did reach [facility] for further intake early this AM; finally during third contact we had a brief speaker phone contact with his supportive grandmother who stated she could transport him back to [place] to family home at [place]. ASSESSMENT/PLAN: residual MS instability but today agreeing to take medications / no change in meds or management plan 02/14/17 11:00 DAY UPDATE/EXAM: Nursing reports pt has continued to resist taking medications; o/w has been in behavioral control but continues with observable lability, MIRTHA, intrusiveness/ on direct exam does evidence child-like and loosely associated thought process; does agree to take lower dose of Depakote( 125 mg bid) and change from Depakote to Abilify (2mg bid); pt told that COM request filed today. ASSESSMENT/PLAN: residual affective and psychotic acuity/ meds prescribed as referenced; CP discussed with Nursing in Rounds 02/15/17 14:00 DAY UPDATE/EXAM: pt again engaging in rx plan and has decided to cooperate with meds trial today// on exam remains elevated, mildly labile, better organized having taken hs meds at 0200 and agrees to take meds in the bid regimen. ASSESSMENT/PLAN: residual acuity but currently starting to comply with meds/ no change in current meds and management plan 02/16/17 DAY UPDATE/EXAM: Objective: Vital Signs Temp Pulse Resp BP Pulse Ox 36.7 C 57 L 16 137/89 H 94 02/15/17 05:20 02/15/17 05:20 02/15/17 05:20 02/15/17 05:20 02/15/17 05:20 ICD10 Worksheet Patient Problems: Problems Problem Status Onset Acute psychosis Acute
[2017-02-16] MEDS: DIVALPROEX NA 125 MG CAP.SPRINKLE PO SCH ×2 (08:19→21:11)
[2017-02-16] MEDS: ARIPiprazole 2 MG TAB PO SCH ×2 (08:20→21:11)
--- NOTE | 2017-02-16 10:48 | SOAPPROG ---
SOAP Progress Note Assessment/Plan: Assessment: Plan: 02/07/17 09:00 DAY UPDATE: Pt presents as 21 y/o SWM admitted to on M1 for c/o acute psychotic decompensation; pt self referred to ED, found naked standing outside ED by Security in a confused/psychotic state. Apparently has been homeless for extended time, arrested for urinating in public in [place] about 1 week ago and briefly jailed, bonded out and received mandated psychiatric assessment by Shaun Greene PhD - result unknown and no known rx intervention. Intake from parents per CC earlier revealed pt has been deteriorating over past 2 years following attending a rave libertarian in October 2014 and ingesting unknown drugs at the time. He was previously arrested in [place] in ? 2015 for defecating in ;public and placed on probation. Father drove pt back to family home in [place] after this incident but pt apparently had to return to [place] to serve out his probation. History is unclear but pt does currently have a probation office in [place]. Parents also report pt was hospitalized as a psychiatric inpt prior to returning to [place] in September 2016; was dx'd with Bipolar Disorder but apparently left shortly after DC and has been in [place] for past 5 months. 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 Pt medically cleared, presented to [facility] and on admission to as evidencing PI,circumscribed persecutory and grandiose delusions, affective lability, ? mood elevation, dysphoria, MIRTHA, overly abstract and bizarre thought process, expressing wish to return to family home and parents. He reportedly is an only child; has attended college but not graduated; uses TLC and Kava regularly but no other known drugs; is clinically underweight and been compromised in capacity to care for himself on the streets for extended time. Physical exam negative for active problems, TS + for [facility] only and other lab screen unremarkable. ON EXAM: presents as thin, unkempt young adult male; speaks softly and with vaqueness; does say early on he does not want any medications but did state he has taken Zydis/Zyprexa 10 mg hs twice since admission; thought pattern evidences MIRTHA and overly abstract ideation, no overt H/D elicited; currently dysphoric wiht observed manic elements. Did give verbal permission for Team to speak to parents. ASSESSMENT/PLAN: residual psychotic acuity - diagnosis unclear; dysphoric - dx' ed as Bipolar by previous workup; have not r/o'd substance use problems/ no change in meds or management today; will expedite expansion of data base from collaterals 02/08/17 11:45 DAY UPDATE/EXAM: Nursing reports pt continues to comply with Zydis 10 mg hs, is observed to be calmer, more organized albeit with residual overly abstract and bizarre thought process; other psychotic elements not r/o'd/ on direct exam indeed presents with better organization of thought process b/w residual MIRTHA; responsive to reintegrative support; states he wishes to return home when stable and again agrees with my contacting parents; acknowledges that life course has been downhill after trying to attend college in fall 2013 and that a factor in slide was the heavy use of cannabis. ASSESSMENT/PLAN: early phase improvement/ no change in meds or management; case review with emphasis on mobilizing pt into milieu and group program; call to FOC pending 02/09/17 DAY UPDATE/EXAM: Nursing reports patient more organized, in behavioral control, compliant with cares but did not take hs Zyprexa and is currently resistant / on direct exam pt is calm, cooperative, conversant; minimizing problems and presenting in mildly defiant manner his right "to live my life" and preoccupied with DC; does stay in affective control and evidences prepsychotic/psychotic denial/distortion and circumscribed IOR. INTAKE/FOC: Father describes pt's acutely psychotic state last year when bonded out of [place] [facility] [facility] and driven back to [place].; pt hospitalized acutely for 13 days and given Risperdal, Depakote, and depot Invega, stabilized but did not follow up with outpt rx; father states he did not noticeably regress prior to returning to [place] in September to complete his probationary period and was relatively uninformed about pt's course since arriving back in [place] 4 + months ago. ASSESSMENT/PLAN: further improved descriptively b/w residual residual psychosis and no evident residual rafael; is now meds resistant/ will contact pt's PO to clarify further history of present illness and remaining terms of probation; will reassess approach to current meds resistance. 02/10/17 09:00 DAY ' UPDATE/EXAM: Nursing reports pt slept well; he did comply with hs Zyprexa 10 mg last night; observed to have residual MIRTHA and mix of grandiose and persecutory delusion by staff - see excellent progress note by mental health tech yesterday / on direct exam today pt presents as better kempt, initially pleasant but becomes more irritable and disorganized when he understands he will not be immediately DC'd but extended to further stabilize and arrive at a definitive DC plan; he does understand the discussion including meds review and my intention to increase Zyprexa dose and adding Depakote bid; he initially agrees and then states he may resist. ASSESSMENT/PLAN: residual psychotic acuity and affective lability/ increase Zyprexa to 5/10 mg qd, begin Depakote trial @ 250 mg bid; CP reviewed with Nursing in Rounds; will request COM 02/11/17 12:00 DAY UPDATE/EXAM: Nursing reports pt did comply with hs Zyprexa after refusing AM med yesterday/ on direct exam today is initially resistant to meds and evidencing the residual PI and grandiose thought pattern despite my focussed and very direct comments about the need for medications and that inpt rx will be extended to stabilize MS; pt then electively requested second meeting and said he would comply and generally was more conversant; he does understand that I will request COM as a backup strategy given his fluidity of accepting meds; he also understands that I did reach [facility] for further intake early this AM; finally during third contact we had a brief speaker phone contact with his supportive grandmother who stated she could transport him back to [place] to family home at [place]. ASSESSMENT/PLAN: residual MS instability but today agreeing to take medications / no change in meds or management plan 02/14/17 11:00 DAY UPDATE/EXAM: Nursing reports pt has continued to resist taking medications; o/w has been in behavioral control but continues with observable lability, MIRTHA, intrusiveness/ on direct exam does evidence child-like and loosely associated thought process; does agree to take lower dose of Depakote( 125 mg bid) and change from Depakote to Abilify (2mg bid); pt told that COM request filed today. ASSESSMENT/PLAN: residual affective and psychotic acuity/ meds prescribed as referenced; CP discussed with Nursing in Rounds 02/15/17 14:00 DAY ' UPDATE/EXAM: pt again engaging in rx plan and has decided to cooperate with meds trial today// on exam remains elevated, mildly labile, better organized having taken hs meds at 0200 and agrees to take meds in the bid regimen. ASSESSMENT/PLAN: residual acuity but currently starting to comply with meds/ no change in current meds and management plan 02/16/17 09:00 DAY ' UPDATE/EXAM: Nursing reports pt evidences observable residual acuity a/w lability, IOR/PI; remains in behavioral control and thus far c/w meds and cares , using art materials individually/ on direct exam pt begins in conversant mode telling me that he cannot continues to talk with parents by telephone because they are "too anxious and keep telling me what to do" - states his preference to stay in [place] and f/u psychiatric treatment post DC here; however he escalates when I advise him that his connection to parents will continue and we should work together to improve the communications, he continues to become increasingly angry and entitled and language progressively less precise and then disorganized with emerging IOR and his answers being the only "right" ones. ASSESSMENT/PLAN: residual lability, reactivity, and underlying psychosis remains present; co mplicating feature is pt's structural entitlement/ will updose medications tomorrow; The STC has been discovered as misplaced and not in chart after being originally done on 02/09; will activate an M1 Hold and then reactivate a STC plus inform the Court to insure the COM request is effectively engaging the Court process. Objective: Vital Signs Temp Pulse Resp BP Pulse Ox 36.5 C 80 16 137/60 H 99 02/16/17 06:30 02/16/17 06:30 02/16/17 06:30 02/16/17 06:30 02/16/17 06:30 ICD10 Worksheet Patient Problems: Problems Problem Status Onset Acute psychosis Acute
--- NOTE | 2017-02-17 06:31 | SOAPPROG ---
SOAP Progress Note Assessment/Plan: Assessment: Plan: 02/07/17 09:00 DAY UPDATE: Pt presents as 21 y/o SWM admitted to on M1 for c/o acute psychotic decompensation; pt self referred to ED, found naked standing outside ED by Security in a confused/psychotic state. Apparently has been homeless for extended time, arrested for urinating in public in [place] about 1 week ago and briefly jailed, bonded out and received mandated psychiatric assessment by Shaun Greene PhD - result unknown and no known rx intervention. Intake from parents per CC earlier revealed pt has been deteriorating over past 2 years following attending a rave libertarian in October 2014 and ingesting unknown drugs at the time. He was previously arrested in [place] in ? 2015 for defecating in ;public and placed on probation. Father drove pt back to family home in [place] after this incident but pt apparently had to return to [place] to serve out his probation. History is unclear but pt does currently have a probation office in [place]. Parents also report pt was hospitalized as a psychiatric inpt prior to returning to [place] in September 2016; was dx'd with Bipolar Disorder but apparently left shortly after DC and has been in [place] for past 5 months. 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 Pt medically cleared, presented to [facility] and on admission to as evidencing PI,circumscribed persecutory and grandiose delusions, affective lability, ? mood elevation, dysphoria, MIRTHA, overly abstract and bizarre thought process, expressing wish to return to family home and parents. He reportedly is an only child; has attended college but not graduated; uses TLC and Kava regularly but no other known drugs; is clinically underweight and been compromised in capacity to care for himself on the streets for extended time. Physical exam negative for active problems, TS + for [facility] only and other lab screen unremarkable. ON EXAM: presents as thin, unkempt young adult male; speaks softly and with vaqueness; does say early on he does not want any medications but did state he has taken Zydis/Zyprexa 10 mg hs twice since admission; thought pattern evidences MIRTHA and overly abstract ideation, no overt H/D elicited; currently dysphoric wiht observed manic elements. Did give verbal permission for Team to speak to parents. ASSESSMENT/PLAN: residual psychotic acuity - diagnosis unclear; dysphoric - dx' ed as Bipolar by previous workup; have not r/o'd substance use problems/ no change in meds or management today; will expedite expansion of data base from collaterals 02/08/17 11:45 DAY UPDATE/EXAM: Nursing reports pt continues to comply with Zydis 10 mg hs, is observed to be calmer, more organized albeit with residual overly abstract and bizarre thought process; other psychotic elements not r/o'd/ on direct exam indeed presents with better organization of thought process b/w residual MIRTHA; responsive to reintegrative support; states he wishes to return home when stable and again agrees with my contacting parents; acknowledges that life course has been downhill after trying to attend college in fall 2013 and that a factor in slide was the heavy use of cannabis. ASSESSMENT/PLAN: early phase improvement/ no change in meds or management; case review with emphasis on mobilizing pt into milieu and group program; call to FOC pending 02/09/17 DAY UPDATE/EXAM: Nursing reports patient more organized, in behavioral control, compliant with cares but did not take hs Zyprexa and is currently resistant / on direct exam pt is calm, cooperative, conversant; minimizing problems and presenting in mildly defiant manner his right "to live my life" and preoccupied with DC; does stay in affective control and evidences prepsychotic/psychotic denial/distortion and circumscribed IOR. INTAKE/FOC: Father describes pt's acutely psychotic state last year when bonded out of [place] detention and driven back to [place].; pt hospitalized acutely for 13 days and given Risperdal, Depakote, and depot Invega, stabilized but did not follow up with outpt rx; father states he did not noticeably regress prior to returning to [place] in September to complete his probationary period and was relatively uninformed about pt's course since arriving back in [place] 4 + months ago. ASSESSMENT/PLAN: further improved descriptively b/w residual residual psychosis and no evident residual rafael; is now meds resistant/ will contact pt's PO to clarify further history of present illness and remaining terms of probation; will reassess approach to current meds resistance. 02/10/17 09:00 DAY ' UPDATE/EXAM: Nursing reports pt slept well; he did comply with hs Zyprexa 10 mg last night; observed to have residual MIRTHA and mix of grandiose and persecutory delusion by staff - see excellent progress note by mental health tech yesterday / on direct exam today pt presents as better kempt, initially pleasant but becomes more irritable and disorganized when he understands he will not be immediately DC'd but extended to further stabilize and arrive at a definitive DC plan; he does understand the discussion including meds review and my intention to increase Zyprexa dose and adding Depakote bid; he initially agrees and then states he may resist. ASSESSMENT/PLAN: residual psychotic acuity and affective lability/ increase Zyprexa to 5/10 mg qd, begin Depakote trial @ 250 mg bid; CP reviewed with Nursing in Rounds; will request COM 02/11/17 12:00 DAY UPDATE/EXAM: Nursing reports pt did comply with hs Zyprexa after refusing AM med yesterday/ on direct exam today is initially resistant to meds and evidencing the residual PI and grandiose thought pattern despite my focussed and very direct comments about the need for medications and that inpt rx will be extended to stabilize MS; pt then electively requested second meeting and said he would comply and generally was more conversant; he does understand that I will request COM as a backup strategy given his fluidity of accepting meds; he also understands that I did reach [facility] for further intake early this AM; finally during third contact we had a brief speaker phone contact with his supportive grandmother who stated she could transport him back to [place] to family home at [place]. ASSESSMENT/PLAN: residual MS instability but today agreeing to take medications / no change in meds or management plan 02/14/17 11:00 DAY UPDATE/EXAM: Nursing reports pt has continued to resist taking medications; o/w has been in behavioral control but continues with observable lability, MIRTHA, intrusiveness/ on direct exam does evidence child-like and loosely associated thought process; does agree to take lower dose of Depakote( 125 mg bid) and change from Depakote to Abilify (2mg bid); pt told that COM request filed today. ASSESSMENT/PLAN: residual affective and psychotic acuity/ meds prescribed as referenced; CP discussed with Nursing in Rounds 02/15/17 14:00 DAY UPDATE/EXAM: pt again engaging in rx plan and has decided to cooperate with meds trial today// on exam remains elevated, mildly labile, better organized having taken hs meds at 0200 and agrees to take meds in the bid regimen. ASSESSMENT/PLAN: residual acuity but currently starting to comply with meds/ no change in current meds and management plan 02/16/17 09:00 DAY ' UPDATE/EXAM: Nursing reports pt evidences observable residual acuity a/w lability, IOR/PI; remains in behavioral control and thus far c/w meds and cares , using art materials individually/ on direct exam pt begins in conversant mode telling me that he cannot continues to talk with parents by telephone because they are "too anxious and keep telling me what to do" - states his preference to stay in [place] and f/u psychiatric treatment post DC here; however he escalates when I advise him that his connection to parents will continue and we should work together to improve the communications, he continues to become increasingly angry and entitled and language progressively less precise and then disorganized with emerging IOR and his answers being the only "right" ones. ASSESSMENT/PLAN: residual lability, reactivity, and underlying psychosis remains present; complicating feature is pt's structural entitlement/ will updose medications tomorrow; The STC has been discovered as misplaced and not in chart after being originally done on 02/09; will activate an M1 Hold and then reactivate a STC plus inform the Court to insure the COM request is effectively engaging the Court process. 02/17/17 DAY ' UPDATE/EXAM: Objective: Vital Signs Temp Pulse Resp BP Pulse Ox 36.5 C 80 16 137/60 H 99 02/16/17 06:30 02/16/17 06:30 02/16/17 06:30 02/16/17 06:30 02/16/17 06:30 ICD10 Worksheet Patient Problems: Problems Problem Status Onset Acute psychosis Acute
[2017-02-17] MEDS: DIVALPROEX ER 250 MG TAB PO SCH ×2 (08:16→20:28)
[2017-02-17] MEDS: ARIPiprazole 2 MG TAB PO SCH (08:16)
--- NOTE | 2017-02-17 14:51 | SOAPPROG ---
SOAP Progress Note Assessment/Plan: Assessment: Plan: 02/07/17 09:00 DAY UPDATE: Pt presents as 21 y/o SWM admitted to on M1 for c/o acute psychotic decompensation; pt self referred to ED, found naked standing outside ED by Security in a confused/psychotic state. Apparently has been homeless for extended time, arrested for urinating in public in [place] about 1 week ago and briefly jailed, bonded out and received mandated psychiatric assessment by Shaun Greene PhD - result unknown and no known rx intervention. Intake from parents per CC earlier revealed pt has been deteriorating over past 2 years following attending a rave republican in October 2014 and ingesting unknown drugs at the time. He was previously arrested in [place] in ? 2015 for defecating in ;public and placed on probation. Father drove pt back to family home in [place] after this incident but pt apparently had to return to [place] to serve out his probation. History is unclear but pt does currently have a probation office in [place]. Parents also report pt was hospitalized as a psychiatric inpt prior to returning to [place] in September 2016; was dx'd with Bipolar Disorder but apparently left shortly after DC and has been in [place] for past 5 months. 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 Pt medically cleared, presented to [facility] and on admission to as evidencing PI,circumscribed persecutory and grandiose delusions, affective lability, ? mood elevation, dysphoria, MIRTHA, overly abstract and bizarre thought process, expressing wish to return to family home and parents. He reportedly is an only child; has attended college but not graduated; uses TLC and Kava regularly but no other known drugs; is clinically underweight and been compromised in capacity to care for himself on the streets for extended time. Physical exam negative for active problems, TS + for [facility] only and other lab screen unremarkable. ON EXAM: presents as thin, unkempt young adult male; speaks softly and with vaqueness; does say early on he does not want any medications but did state he has taken Zydis/Zyprexa 10 mg hs twice since admission; thought pattern evidences MIRTHA and overly abstract ideation, no overt H/D elicited; currently dysphoric wiht observed manic elements. Did give verbal permission for Team to speak to parents. ASSESSMENT/PLAN: residual psychotic acuity - diagnosis unclear; dysphoric - dx' ed as Bipolar by previous workup; have not r/o'd substance use problems/ no change in meds or management today; will expedite expansion of data base from collaterals 02/08/17 11:45 DAY UPDATE/EXAM: Nursing reports pt continues to comply with Zydis 10 mg hs, is observed to be calmer, more organized albeit with residual overly abstract and bizarre thought process; other psychotic elements not r/o'd/ on direct exam indeed presents with better organization of thought process b/w residual MIRTHA; responsive to reintegrative support; states he wishes to return home when stable and again agrees with my contacting parents; acknowledges that life course has been downhill after trying to attend college in fall 2013 and that a factor in slide was the heavy use of cannabis. ASSESSMENT/PLAN: early phase improvement/ no change in meds or management; case review with emphasis on mobilizing pt into milieu and group program; call to FOC pending 02/09/17 DAY UPDATE/EXAM: Nursing reports patient more organized, in behavioral control, compliant with cares but did not take hs Zyprexa and is currently resistant / on direct exam pt is calm, cooperative, conversant; minimizing problems and presenting in mildly defiant manner his right "to live my life" and preoccupied with DC; does stay in affective control and evidences prepsychotic/psychotic denial/distortion and circumscribed IOR. INTAKE/FOC: Father describes pt's acutely psychotic state last year when bonded out of [place] snf and driven back to [place].; pt hospitalized acutely for 13 days and given Risperdal, Depakote, and depot Invega, stabilized but did not follow up with outpt rx; father states he did not noticeably regress prior to returning to [place] in September to complete his probationary period and was relatively uninformed about pt's course since arriving back in [place] 4 + months ago. ASSESSMENT/PLAN: further improved descriptively b/w residual residual psychosis and no evident residual rafael; is now meds resistant/ will contact pt's PO to clarify further history of present illness and remaining terms of probation; will reassess approach to current meds resistance. 02/10/17 09:00 DAY ' UPDATE/EXAM: Nursing reports pt slept well; he did comply with hs Zyprexa 10 mg last night; observed to have residual MIRTHA and mix of grandiose and persecutory delusion by staff - see excellent progress note by mental health tech yesterday / on direct exam today pt presents as better kempt, initially pleasant but becomes more irritable and disorganized when he understands he will not be immediately DC'd but extended to further stabilize and arrive at a definitive DC plan; he does understand the discussion including meds review and my intention to increase Zyprexa dose and adding Depakote bid; he initially agrees and then states he may resist. ASSESSMENT/PLAN: residual psychotic acuity and affective lability/ increase Zyprexa to 5/10 mg qd, begin Depakote trial @ 250 mg bid; CP reviewed with Nursing in Rounds; will request COM 02/11/17 12:00 DAY UPDATE/EXAM: Nursing reports pt did comply with hs Zyprexa after refusing AM med yesterday/ on direct exam today is initially resistant to meds and evidencing the residual PI and grandiose thought pattern despite my focussed and very direct comments about the need for medications and that inpt rx will be extended to stabilize MS; pt then electively requested second meeting and said he would comply and generally was more conversant; he does understand that I will request COM as a backup strategy given his fluidity of accepting meds; he also understands that I did reach [facility] for further intake early this AM; finally during third contact we had a brief speaker phone contact with his supportive grandmother who stated she could transport him back to [place] to family home at [place]. ASSESSMENT/PLAN: residual MS instability but today agreeing to take medications / no change in meds or management plan 02/14/17 11:00 DAY UPDATE/EXAM: Nursing reports pt has continued to resist taking medications; o/w has been in behavioral control but continues with observable lability, MIRTHA, intrusiveness/ on direct exam does evidence child-like and loosely associated thought process; does agree to take lower dose of Depakote( 125 mg bid) and change from Depakote to Abilify (2mg bid); pt told that COM request filed today. ASSESSMENT/PLAN: residual affective and psychotic acuity/ meds prescribed as referenced; CP discussed with Nursing in Rounds 02/15/17 14:00 DAY UPDATE/EXAM: pt again engaging in rx plan and has decided to cooperate with meds trial today// on exam remains elevated, mildly labile, better organized having taken hs meds at 0200 and agrees to take meds in the bid regimen. ASSESSMENT/PLAN: residual acuity but currently starting to comply with meds/ no change in current meds and management plan 02/16/17 09:00 DAY UPDATE/EXAM: Nursing reports pt evidences observable residual acuity a/w lability, IOR/PI; remains in behavioral control and thus far c/w meds and cares , using art materials individually/ on direct exam pt begins in conversant mode telling me that he cannot continues to talk with parents by telephone because they are "too anxious and keep telling me what to do" - states his preference to stay in [place] and f/u psychiatric treatment post DC here; however he escalates when I advise him that his connection to parents will continue and we should work together to improve the communications, he continues to become increasingly angry and entitled and language progressively less precise and then disorganized with emerging IOR and his answers being the only "right" ones. ASSESSMENT/PLAN: residual lability, reactivity, and underlying psychosis remains present; complicating feature is pt's structural entitlement/ will updose medications tomorrow; The STC has been discovered as misplaced and not in chart after being originally done on 02/09; will activate an M1 Hold and then reactivate a STC plus inform the Court to insure the COM request is effectively engaging the Court process. 02/17/17 DAY UPDATE/EXAM: Nusrsing reports pt responded positively tolimit setting during [facility]'s visit with pt when she called him out for his infantile entitlement - pt has been better behaved and compliant with the increased dosong of the Depakote and Abilify beginning this AM/ on direct exam he preents as conversant and cooperative; syndromal update, meds and privilege status effectively discussed. ASSESSMENT/PLAN: Progress in recompensation; residual affective lability and psychosis albeit improved/ Depakote increased to 250 mg bid and Abilify increased to 7 mg qg; continue current management plan; will initiate AG's Objective: Vital Signs Temp Pulse Resp BP Pulse Ox 36.5 C 80 16 137/60 H 99 02/16/17 06:30 02/16/17 06:30 02/16/17 06:30 02/16/17 06:30 02/16/17 06:30 ICD10 Worksheet Patient Problems: Problems Problem Status Onset Acute psychosis Acute
[2017-02-17] MEDS: ARIPiprazole 5 MG TAB PO SCH (20:28)
[2017-02-18 06:30] VITALS: O2SAT 97
--- NOTE | 2017-02-18 06:43 | SOAPPROG ---
SOAP Progress Note Assessment/Plan: Assessment: Plan: 02/07/17 09:00 DAY UPDATE: Pt presents as 21 y/o SWM admitted to on M1 for c/o acute psychotic decompensation; pt self referred to ED, found naked standing outside ED by Security in a confused/psychotic state. Apparently has been homeless for extended time, arrested for urinating in public in [place] about 1 week ago and briefly jailed, bonded out and received mandated psychiatric assessment by Shaun Greene PhD - result unknown and no known rx intervention. Intake from parents per CC earlier revealed pt has been deteriorating over past 2 years following attending a rave constitution party in October 2014 and ingesting unknown drugs at the time. He was previously arrested in [place] in ? 2015 for defecating in ;public and placed on probation. Father drove pt back to family home in [place] after this incident but pt apparently had to return to [place] to serve out his probation. History is unclear but pt does currently have a probation office in [place]. Parents also report pt was hospitalized as a psychiatric inpt prior to returning to [place] in September 2016; was dx'd with Bipolar Disorder but apparently left shortly after DC and has been in [place] for past 5 months. 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 Pt medically cleared, presented to [facility] and on admission to as evidencing PI,circumscribed persecutory and grandiose delusions, affective lability, ? mood elevation, dysphoria, IMRTHA, overly abstract and bizarre thought process, expressing wish to return to family home and parents. He reportedly is an only child; has attended college but not graduated; uses TLC and Kava regularly but no other known drugs; is clinically underweight and been compromised in capacity to care for himself on the streets for extended time. Physical exam negative for active problems, TS + for [facility] only and other lab screen unremarkable. ON EXAM: presents as thin, unkempt young adult male; speaks softly and with vaqueness; does say early on he does not want any medications but did state he has taken Zydis/Zyprexa 10 mg hs twice since admission; thought pattern evidences MIRTHA and overly abstract ideation, no overt H/D elicited; currently dysphoric wiht observed manic elements. Did give verbal permission for Team to speak to parents. ASSESSMENT/PLAN: residual psychotic acuity - diagnosis unclear; dysphoric - dx' ed as Bipolar by previous workup; have not r/o'd substance use problems/ no change in meds or management today; will expedite expansion of data base from collaterals 02/08/17 11:45 DAY UPDATE/EXAM: Nursing reports pt continues to comply with Zydis 10 mg hs, is observed to be calmer, more organized albeit with residual overly abstract and bizarre thought process; other psychotic elements not r/o'd/ on direct exam indeed presents with better organization of thought process b/w residual MIRTHA; responsive to reintegrative support; states he wishes to return home when stable and again agrees with my contacting parents; acknowledges that life course has been downhill after trying to attend college in fall 2013 and that a factor in slide was the heavy use of cannabis. ASSESSMENT/PLAN: early phase improvement/ no change in meds or management; case review with emphasis on mobilizing pt into milieu and group program; call to FOC pending 02/09/17 DAY UPDATE/EXAM: Nursing reports patient more organized, in behavioral control, compliant with cares but did not take hs Zyprexa and is currently resistant / on direct exam pt is calm, cooperative, conversant; minimizing problems and presenting in mildly defiant manner his right "to live my life" and preoccupied with DC; does stay in affective control and evidences prepsychotic/psychotic denial/distortion and circumscribed IOR. INTAKE/FOC: Father describes pt's acutely psychotic state last year when bonded out of [place] custodial and driven back to [place].; pt hospitalized acutely for 13 days and given Risperdal, Depakote, and depot Invega, stabilized but did not follow up with outpt rx; father states he did not noticeably regress prior to returning to [place] in September to complete his probationary period and was relatively uninformed about pt's course since arriving back in [place] 4 + months ago. ASSESSMENT/PLAN: further improved descriptively b/w residual residual psychosis and no evident residual rafael; is now meds resistant/ will contact pt's PO to clarify further history of present illness and remaining terms of probation; will reassess approach to current meds resistance. 02/10/17 09:00 DAY ' UPDATE/EXAM: Nursing reports pt slept well; he did comply with hs Zyprexa 10 mg last night; observed to have residual MIRTHA and mix of grandiose and persecutory delusion by staff - see excellent progress note by mental health tech yesterday / on direct exam today pt presents as better kempt, initially pleasant but becomes more irritable and disorganized when he understands he will not be immediately DC'd but extended to further stabilize and arrive at a definitive DC plan; he does understand the discussion including meds review and my intention to increase Zyprexa dose and adding Depakote bid; he initially agrees and then states he may resist. ASSESSMENT/PLAN: residual psychotic acuity and affective lability/ increase Zyprexa to 5/10 mg qd, begin Depakote trial @ 250 mg bid; CP reviewed with Nursing in Rounds; will request COM 02/11/17 12:00 DAY UPDATE/EXAM: Nursing reports pt did comply with hs Zyprexa after refusing AM med yesterday/ on direct exam today is initially resistant to meds and evidencing the residual PI and grandiose thought pattern despite my focussed and very direct comments about the need for medications and that inpt rx will be extended to stabilize MS; pt then electively requested second meeting and said he would comply and generally was more conversant; he does understand that I will request COM as a backup strategy given his fluidity of accepting meds; he also understands that I did reach [facility] for further intake early this AM; finally during third contact we had a brief speaker phone contact with his supportive grandmother who stated she could transport him back to [place] to family home at [place]. ASSESSMENT/PLAN: residual MS instability but today agreeing to take medications / no change in meds or management plan 02/14/17 11:00 DAY UPDATE/EXAM: Nursing reports pt has continued to resist taking medications; o/w has been in behavioral control but continues with observable lability, MIRTHA, intrusiveness/ on direct exam does evidence child-like and loosely associated thought process; does agree to take lower dose of Depakote( 125 mg bid) and change from Depakote to Abilify (2mg bid); pt told that COM request filed today. ASSESSMENT/PLAN: residual affective and psychotic acuity/ meds prescribed as referenced; CP discussed with Nursing in Rounds 02/15/17 14:00 DAY UPDATE/EXAM: pt again engaging in rx plan and has decided to cooperate with meds trial today// on exam remains elevated, mildly labile, better organized having taken hs meds at 0200 and agrees to take meds in the bid regimen. ASSESSMENT/PLAN: residual acuity but currently starting to comply with meds/ no change in current meds and management plan 02/16/17 09:00 DAY UPDATE/EXAM: Nursing reports pt evidences observable residual acuity a/w lability, IOR/PI; remains in behavioral control and thus far c/w meds and cares , using art materials individually/ on direct exam pt begins in conversant mode telling me that he cannot continues to talk with parents by telephone because they are "too anxious and keep telling me what to do" - states his preference to stay in [place] and f/u psychiatric treatment post DC here; however he escalates when I advise him that his connection to parents will continue and we should work together to improve the communications, he continues to become increasingly angry and entitled and language progressively less precise and then disorganized with emerging IOR and his answers being the only "right" ones. ASSESSMENT/PLAN: residual lability, reactivity, and underlying psychosis remains present; complicating feature is pt's structural entitlement/ will updose medications tomorrow; The STC has been discovered as misplaced and not in chart after being originally done on 02/09; will activate an M1 Hold and then reactivate a STC plus inform the Court to insure the COM request is effectively engaging the Court process. 02/17/17 DAY UPDATE/EXAM: Nursing reports pt responded positively to limit setting during [facility] visit with pt when she called him out for his infantile entitlement - pt has been better behaved and compliant with the increased dosing of the Depakote and Abilify beginning this AM/ on direct exam he presents as conversant and cooperative; syndromal update, meds and privilege status effectively discussed. ASSESSMENT/PLAN: Progress in recompensation; residual affective lability and psychosis albeit improved/ Depakote increased to 250 mg bid and Abilify increased to 7 mg qg; continue current management plan; will initiate AG's 02/18/17 DAY ' UPDATE/EXAM: Objective: Vital Signs Temp Pulse Resp BP Pulse Ox 36.5 C 78 16 116/71 97 02/18/17 06:00 02/18/17 06:00 02/18/17 06:00 02/18/17 06:00 02/18/17 06:00 ICD10 Worksheet Patient Problems: Problems Problem Status Onset Acute psychosis Acute
[2017-02-18] MEDS: ARIPiprazole 2 MG TAB PO SCH (07:47)
[2017-02-18] MEDS: DIVALPROEX ER 250 MG TAB PO SCH ×2 (07:47→21:51)
[2017-02-18] MEDS ORDERED: OLANZapine DISINTEGR 5 MG TAB ONE (10:41)
--- NOTE | 2017-02-18 13:15 | SOAPPROG ---
SOAP Progress Note Assessment/Plan: Assessment: Plan: 02/07/17 09:00 DAY UPDATE: Pt presents as 21 y/o SWM admitted to on M1 for c/o acute psychotic decompensation; pt self referred to ED, found naked standing outside ED by Security in a confused/psychotic state. Apparently has been homeless for extended time, arrested for urinating in public in [place] about 1 week ago and briefly jailed, bonded out and received mandated psychiatric assessment by Shaun Greene PhD - result unknown and no known rx intervention. Intake from parents per CC earlier revealed pt has been deteriorating over past 2 years following attending a rave green party in October 2014 and ingesting unknown drugs at the time. He was previously arrested in [place] in ? 2015 for defecating in ;public and placed on probation. Father drove pt back to family home in [place] after this incident but pt apparently had to return to [place] to serve out his probation. History is unclear but pt does currently have a probation office in [place]. Parents also report pt was hospitalized as a psychiatric inpt prior to returning to [place] in September 2016; was dx'd with Bipolar Disorder but apparently left shortly after [place] and has been in [place] for past 5 months. Interim history unclear but pt is known to be homeless and without local support system [employer] WORK[employer] and not thought to be engaged in any treatment since returning to [place]. Pt medically cleared, presented to [facility] and on admission to as evidencing PI,circumscribed persecutory and grandiose delusions, affective lability, ? mood elevation, dysphoria, MIRTHA, overly abstract and bizarre thought process, expressing wish to return to family home and parents. He reportedly is an only child; has attended college but not graduated; uses TLC and Kava regularly but no other known drugs; is clinically underweight and been compromised in capacity to care for himself on the streets for extended time. Physical exam negative for active problems, TS + for [facility] only and other lab screen unremarkable. ON EXAM: presents as thin, unkempt young adult male; speaks softly and with vaqueness; does say early on he does not want any medications but did state he has taken Zydis/Zyprexa 10 mg hs twice since admission; thought pattern evidences MIRTHA and overly abstract ideation, no overt H/D elicited; currently dysphoric wiht observed manic elements. Did give verbal permission for Team to speak to parents. ASSESSMENT/PLAN: residual psychotic acuity - diagnosis unclear; dysphoric - dx' ed as Bipolar by previous workup; have not r/o'd substance use problems/ no change in meds or management today; will expedite expansion of data base from collaterals 02/08/17 11:45 DAY UPDATE/EXAM: Nursing reports pt continues to comply with Zydis 10 mg hs, is observed to be calmer, more organized albeit with residual overly abstract and bizarre thought process; other psychotic elements not r/o'd/ on direct exam indeed presents with better organization of thought process b/w residual MIRTHA; responsive to reintegrative support; states he wishes to return home when stable and again agrees with my contacting parents; acknowledges that life course has been downhill after trying to attend college in fall 2013 and that a factor in slide was the heavy use of cannabis. ASSESSMENT/PLAN: early phase improvement/ no change in meds or management; case review with emphasis on mobilizing pt into milieu and group program; call to FOC pending 02/09/17 DAY UPDATE/EXAM: Nursing reports patient more organized, in behavioral control, compliant with cares but did not take hs Zyprexa and is currently resistant / on direct exam pt is calm, cooperative, conversant; minimizing problems and presenting in mildly defiant manner his right "to live my life" and preoccupied with DC; does stay in affective control and evidences prepsychotic/psychotic denial/distortion and circumscribed IOR. INTAKE/FOC: Father describes pt's acutely psychotic state last year when bonded out of [place] [facility] and driven back to [place].; pt hospitalized acutely for 13 days and given Risperdal, Depakote, and depot Invega, stabilized but did not follow up with outpt rx; father states he did not noticeably regress prior to returning to [place] in September to complete his probationary period and was relatively uninformed about pt's course since arriving back in [place] 4 + months ago. ASSESSMENT/PLAN: further improved descriptively b/w residual residual psychosis and no evident residual rafael; is now meds resistant/ will contact pt's PO to clarify further history of present illness and remaining terms of probation; will reassess approach to current meds resistance. 02/10/17 09:00 DAY ' UPDATE/EXAM: Nursing reports pt slept well; he did comply with hs Zyprexa 10 mg last night; observed to have residual MIRTHA and mix of grandiose and persecutory delusion by staff - see excellent progress note by mental health tech yesterday / on direct exam today pt presents as better kempt, initially pleasant but becomes more irritable and disorganized when he understands he will not be immediately DC'd but extended to further stabilize and arrive at a definitive DC plan; he does understand the discussion including meds review and my intention to increase Zyprexa dose and adding Depakote bid; he initially agrees and then states he may resist. ASSESSMENT/PLAN: residual psychotic acuity and affective lability/ increase Zyprexa to 5/10 mg qd, begin Depakote trial @ 250 mg bid; CP reviewed with Nursing in Rounds; will request COM 02/11/17 12:00 DAY UPDATE/EXAM: Nursing reports pt did comply with hs Zyprexa after refusing AM med yesterday/ on direct exam today is initially resistant to meds and evidencing the residual PI and grandiose thought pattern despite my focussed and very direct comments about the need for medications and that inpt rx will be extended to stabilize MS; pt then electively requested second meeting and said he would comply and generally was more conversant; he does understand that I will request COM as a backup strategy given his fluidity of accepting meds; he also understands that I did reach [facility] for further intake early this AM; finally during third contact we had a brief speaker phone contact with his supportive grandmother who stated she could transport him back to [place] to family home at [place]. ASSESSMENT/PLAN: residual MS instability but today agreeing to take medications / no change in meds or management plan 02/14/17 11:00 DAY UPDATE/EXAM: Nursing reports pt has continued to resist taking medications; o/w has been in behavioral control but continues with observable lability, MIRTHA, intrusiveness/ on direct exam does evidence child-like and loosely associated thought process; does agree to take lower dose of Depakote( 125 mg bid) and change from Depakote to Abilify (2mg bid); pt told that COM request filed today. ASSESSMENT/PLAN: residual affective and psychotic acuity/ meds prescribed as referenced; CP discussed with Nursing in Rounds 02/15/17 14:00 DAY UPDATE/EXAM: pt again engaging in rx plan and has decided to cooperate with meds trial today// on exam remains elevated, mildly labile, better organized having taken hs meds at 0200 and agrees to take meds in the bid regimen. ASSESSMENT/PLAN: residual acuity but currently starting to comply with meds/ no change in current meds and management plan 02/16/17 09:00 DAY UPDATE/EXAM: Nursing reports pt evidences observable residual acuity a/w lability, IOR/PI; remains in behavioral control and thus far c/w meds and cares , using art materials individually/ on direct exam pt begins in conversant mode telling me that he cannot continues to talk with parents by telephone because they are "too anxious and keep telling me what to do" - states his preference to stay in [place] and f/u psychiatric treatment post DC here; however he escalates when I advise him that his connection to parents will continue and we should work together to improve the communications, he continues to become increasingly angry and entitled and language progressively less precise and then disorganized with emerging IOR and his answers being the only "right" ones. ASSESSMENT/PLAN: residual lability, reactivity, and underlying psychosis remains present; complicating feature is pt's structural entitlement/ will updose medications tomorrow; The STC has been discovered as misplaced and not in chart after being originally done on 02/09; will activate an M1 Hold and then reactivate a STC plus inform the Court to insure the COM request is effectively engaging the Court process. 02/17/17 DAY UPDATE/EXAM: Nursing reports pt responded positively to limit setting during [facility] visit with pt when she called him out for his infantile entitlement - pt has been better behaved and compliant with the increased dosing of the Depakote and Abilify beginning this AM/ on direct exam he presents as conversant and cooperative; syndromal update, meds and privilege status effectively discussed. ASSESSMENT/PLAN: Progress in recompensation; residual affective lability and psychosis albeit improved/ Depakote increased to 250 mg bid and Abilify increased to 7 mg qd; continue current management plan; will initiate AG's 02/18/17 12:30 DAY ' UPDATE/EXAM: Nursing observes paced progress continuing/ direct exam pt makes another infantile demand to be discharged, stating he's improved "enough to leave" and reacts angrily but with less intensity and lability than previously ; does understand my explanation why inpt stay is extended for further stabilization and definitive DC planning; is interested that we include FOC in speaker ph one meeting later today or tomorrow which we will do. ASSESSMENT/PLAN: residual affective instability and infantilism; psychosis less prominient and resolving/ no change in meds of management as d/w Nursing in Rounds Objective: Vital Signs Temp Pulse Resp BP Pulse Ox 36.5 C 78 16 116/71 97 02/18/17 06:00 02/18/17 06:00 02/18/17 06:00 02/18/17 06:00 02/18/17 06:00 ICD10 Worksheet Patient Problems: Problems Problem Status Onset Acute psychosis Acute
[2017-02-18] MEDS: ARIPiprazole 5 MG TAB PO SCH (21:50)
[2017-02-19 06:32] VITALS: TEMP 97.9
--- NOTE | 2017-02-19 06:55 | SOAPPROG ---
SOAP Progress Note Assessment/Plan: Assessment: Plan: 02/07/17 09:00 DAY UPDATE: Pt presents as 21 y/o SWM admitted to on M1 for c/o acute psychotic decompensation; pt self referred to ED, found naked standing outside ED by Security in a confused/psychotic state. Apparently has been homeless for extended time, arrested for urinating in public in [place] about 1 week ago and briefly jailed, bonded out and received mandated psychiatric assessment by Shaun Greene PhD - result unknown and no known rx intervention. Intake from parents per CC earlier revealed pt has been deteriorating over past 2 years following attending a rave democrat in October 2014 and ingesting unknown drugs at the time. He was previously arrested in [place] in ? 2015 for defecating in ;public and placed on probation. Father drove pt back to family home in [place] after this incident but pt apparently had to return to [place] to serve out his probation. History is unclear but pt does currently have a probation office in [place]. Parents also report pt was hospitalized as a psychiatric inpt prior to returning to [place] in September 2016; was dx'd with Bipolar Disorder but apparently left shortly after DC and has been in [place] for past 5 months. Interim history unclear but pt is known to be homeless and without local support system [employer] and not thought to be engaged in any treatment since returning to [place]. Pt medically cleared, presented to [facility] and on admission to as evidencing PI,circumscribed persecutory and grandiose delusions, affective lability, ? mood elevation, dysphoria, MIRTHA, overly abstract and bizarre thought process, expressing wish to return to family home and parents. He reportedly is an only child; has attended college but not graduated; uses TLC and Kava regularly but no other known drugs; is clinically underweight and been compromised in capacity to care for himself on the streets for extended time. Physical exam negative for active problems, TS + for [facility] only and other lab screen unremarkable. ON EXAM: presents as thin, unkempt young adult male; speaks softly and with vaqueness; does say early on he does not want any medications but did state he has taken Zydis/Zyprexa 10 mg hs twice since admission; thought pattern evidences MIRTHA and overly abstract ideation, no overt H/D elicited; currently dysphoric wiht observed manic elements. Did give verbal permission for Team to speak to parents. ASSESSMENT/PLAN: residual psychotic acuity - diagnosis unclear; dysphoric - dx' ed as Bipolar by previous workup; have not r/o'd substance use problems/ no change in meds or management today; will expedite expansion of data base from collaterals 02/08/17 11:45 DAY UPDATE/EXAM: Nursing reports pt continues to comply with Zydis 10 mg hs, is observed to be calmer, more organized albeit with residual overly abstract and bizarre thought process; other psychotic elements not r/o'd/ on direct exam indeed presents with better organization of thought process b/w residual MIRTHA; responsive to reintegrative support; states he wishes to return home when stable and again agrees with my contacting parents; acknowledges that life course has been downhill after trying to attend college in fall 2013 and that a factor in slide was the heavy use of cannabis. ASSESSMENT/PLAN: early phase improvement/ no change in meds or management; case review with emphasis on mobilizing pt into milieu and group program; call to FOC pending 02/09/17 DAY UPDATE/EXAM: Nursing reports patient more organized, in behavioral control, compliant with cares but did not take hs Zyprexa and is currently resistant / on direct exam pt is calm, cooperative, conversant; minimizing problems and presenting in mildly defiant manner his right "to live my life" and preoccupied with DC; does stay in affective control and evidences prepsychotic/psychotic denial/distortion and circumscribed IOR. INTAKE/FOC: Father describes pt's acutely psychotic state last year when bonded out of [place] alf and driven back to [place].; pt hospitalized acutely for 13 days and given Risperdal, Depakote, and depot Invega, stabilized but did not follow up with outpt rx; father states he did not noticeably regress prior to returning to [place] in September to complete his probationary period and was relatively uninformed about pt's course since arriving back in [place] 4 + months ago. ASSESSMENT/PLAN: further improved descriptively b/w residual residual psychosis and no evident residual rafael; is now meds resistant/ will contact pt's PO to clarify further history of present illness and remaining terms of probation; will reassess approach to current meds resistance. 02/10/17 09:00 DAY ' UPDATE/EXAM: Nursing reports pt slept well; he did comply with hs Zyprexa 10 mg last night; observed to have residual MIRTHA and mix of grandiose and persecutory delusion by staff - see excellent progress note by mental health tech yesterday / on direct exam today pt presents as better kempt, initially pleasant but becomes more irritable and disorganized when he understands he will not be immediately DC'd but extended to further stabilize and arrive at a definitive DC plan; he does understand the discussion including meds review and my intention to increase Zyprexa dose and adding Depakote bid; he initially agrees and then states he may resist. ASSESSMENT/PLAN: residual psychotic acuity and affective lability/ increase Zyprexa to 5/10 mg qd, begin Depakote trial @ 250 mg bid; CP reviewed with Nursing in Rounds; will request COM 02/11/17 12:00 DAY UPDATE/EXAM: Nursing reports pt did comply with hs Zyprexa after refusing AM med yesterday/ on direct exam today is initially resistant to meds and evidencing the residual PI and grandiose thought pattern despite my focussed and very direct comments about the need for medications and that inpt rx will be extended to stabilize MS; pt then electively requested second meeting and said he would comply and generally was more conversant; he does understand that I will request COM as a backup strategy given his fluidity of accepting meds; he also understands that I did reach [facility] for further intake early this AM; finally during third contact we had a brief speaker phone contact with his supportive grandmother who stated she could transport him back to [place] to family home at [place]. ASSESSMENT/PLAN: residual MS instability but today agreeing to take medications / no change in meds or management plan 02/14/17 11:00 DAY UPDATE/EXAM: Nursing reports pt has continued to resist taking medications; o/w has been in behavioral control but continues with observable lability, MIRTHA, intrusiveness/ on direct exam does evidence child-like and loosely associated thought process; does agree to take lower dose of Depakote( 125 mg bid) and change from Depakote to Abilify (2mg bid); pt told that COM request filed today. ASSESSMENT/PLAN: residual affective and psychotic acuity/ meds prescribed as referenced; CP discussed with Nursing in Rounds 02/15/17 14:00 DAY UPDATE/EXAM: pt again engaging in rx plan and has decided to cooperate with meds trial today// on exam remains elevated, mildly labile, better organized having taken hs meds at 0200 and agrees to take meds in the bid regimen. ASSESSMENT/PLAN: residual acuity but currently starting to comply with meds/ no change in current meds and management plan 02/16/17 09:00 DAY UPDATE/EXAM: Nursing reports pt evidences observable residual acuity a/w lability, IOR/PI; remains in behavioral control and thus far c/w meds and cares , using art materials individually/ on direct exam pt begins in conversant mode telling me that he cannot continues to talk with parents by telephone because they are "too anxious and keep telling me what to do" - states his preference to stay in [place] and f/u psychiatric treatment post DC here; however he escalates when I advise him that his connection to parents will continue and we should work together to improve the communications, he continues to become increasingly angry and entitled and language progressively less precise and then disorganized with emerging IOR and his answers being the only "right" ones. ASSESSMENT/PLAN: residual lability, reactivity, and underlying psychosis remains present; complicating feature is pt's structural entitlement/ will updose medications tomorrow; The STC has been discovered as misplaced and not in chart after being originally done on 02/09; will activate an M1 Hold and then reactivate a STC plus inform the Court to insure the COM request is effectively engaging the Court process. 02/17/17 DAY UPDATE/EXAM: Nursing reports pt responded positively to limit setting during [facility]'s visit with pt when she called him out for his infantile entitlement - pt has been better behaved and compliant with the increased dosing of the Depakote and Abilify beginning this AM/ on direct exam he presents as conversant and cooperative; syndromal update, meds and privilege status effectively discussed. ASSESSMENT/PLAN: Progress in recompensation; residual affective lability and psychosis albeit improved/ Depakote increased to 250 mg bid and Abilify increased to 7 mg qd; continue current management plan; will initiate AG's 02/18/17 12:30 DAY UPDATE/EXAM: Nursing observes paced progress continuing/ direct exam pt makes another infantile demand to be discharged, stating he's improved "enough to leave" and reacts angrily but with less intensity and lability than previously ; does understand my explanation why inpt stay is extended for further stabilization and definitive DC planning; is interested that we include FOC in speaker ph one meeting later today or tomorrow which we will do. ASSESSMENT/PLAN: residual affective instability and infantilism; psychosis less prominient and resolving/ no change in meds of management as d/w Nursing in Rounds 02/19/17 DAY UPDATE/EXAM: Objective: Vital Signs Temp Pulse Resp BP Pulse Ox 36.6 C 59 L 16 108/63 97 02/19/17 06:00 02/19/17 06:00 02/19/17 06:00 02/19/17 06:00 02/19/17 06:00 ICD10 Worksheet Patient Problems: Problems Problem Status Onset Acute psychosis Acute
[2017-02-19] MEDS: ARIPiprazole 2 MG TAB PO SCH (08:37)
[2017-02-19] MEDS: DIVALPROEX ER 250 MG TAB PO SCH ×2 (08:37→20:20)
--- NOTE | 2017-02-19 08:50 | SOAPPROG ---
SOAP Progress Note Assessment/Plan: Assessment: Plan: 02/07/17 09:00 DAY UPDATE: Pt presents as 21 y/o SWM admitted to on M1 for c/o acute psychotic decompensation; pt self referred to ED, found naked standing outside ED by Security in a confused/psychotic state. Apparently has been homeless for extended time, arrested for urinating in public in [place] about 1 week ago and briefly jailed, bonded out and received mandated psychiatric assessment by Shaun Greene PhD - result unknown and no known rx intervention. Intake from parents per CC earlier revealed pt has been deteriorating over past 2 years following attending a rave libertarian in October 2014 and ingesting unknown drugs at the time. He was previously arrested in [place] in ? 2015 for defecating in ;public and placed on probation. Father drove pt back to family home in [place] after this incident but pt apparently had to return to [place] to serve out his probation. History is unclear but pt does currently have a probation office in [place]. Parents also report pt was hospitalized as a psychiatric inpt prior to returning to [place] in September 2016; was dx'd with Bipolar Disorder but apparently left shortly after DC and has been in [place] for past 5 months. Interim history unclear but pt is known to be homeless and without local support system [employer] and not thought to be engaged in any treatment since returning to [place]. Pt medically cleared, presented to [facility] and on admission to as evidencing PI,circumscribed persecutory and grandiose delusions, affective lability, ? mood elevation, dysphoria, MIRTHA, overly abstract and bizarre thought process, expressing wish to return to family home and parents. He reportedly is an only child; has attended college but not graduated; uses TLC and Kava regularly but no other known drugs; is clinically underweight and been compromised in capacity to care for himself on the streets for extended time. Physical exam negative for active problems, TS + for [facility] only and other lab screen unremarkable. ON EXAM: presents as thin, unkempt young adult male; speaks softly and with vaqueness; does say early on he does not want any medications but did state he has taken Zydis/Zyprexa 10 mg hs twice since admission; thought pattern evidences MIRTHA and overly abstract ideation, no overt H/D elicited; currently dysphoric wiht observed manic elements. Did give verbal permission for Team to speak to parents. ASSESSMENT/PLAN: residual psychotic acuity - diagnosis unclear; dysphoric - dx' ed as Bipolar by previous workup; have not r/o'd substance use problems/ no change in meds or management today; will expedite expansion of data base from collaterals 02/08/17 11:45 DAY UPDATE/EXAM: Nursing reports pt continues to comply with Zydis 10 mg hs, is observed to be calmer, more organized albeit with residual overly abstract and bizarre thought process; other psychotic elements not r/o'd/ on direct exam indeed presents with better organization of thought process b/w residual MIRTHA; responsive to reintegrative support; states he wishes to return home when stable and again agrees with my contacting parents; acknowledges that life course has been downhill after trying to attend college in fall 2013 and that a factor in slide was the heavy use of cannabis. ASSESSMENT/PLAN: early phase improvement/ no change in meds or management; case review with emphasis on mobilizing pt into milieu and group program; call to FOC pending 02/09/17 DAY UPDATE/EXAM: Nursing reports patient more organized, in behavioral control, compliant with cares but did not take hs Zyprexa and is currently resistant / on direct exam pt is calm, cooperative, conversant; minimizing problems and presenting in mildly defiant manner his right "to live my life" and preoccupied with DC; does stay in affective control and evidences prepsychotic/psychotic denial/distortion and circumscribed IOR. INTAKE/FOC: Father describes pt's acutely psychotic state last year when bonded out of [place] long term and driven back to [place].; pt hospitalized acutely for 13 days and given Risperdal, Depakote, and depot Invega, stabilized but did not follow up with outpt rx; father states he did not noticeably regress prior to returning to [place] in September to complete his probationary period and was relatively uninformed about pt's course since arriving back in [place] 4 + months ago. ASSESSMENT/PLAN: further improved descriptively b/w residual residual psychosis and no evident residual rafael; is now meds resistant/ will contact pt's PO to clarify further history of present illness and remaining terms of probation; will reassess approach to current meds resistance. 02/10/17 09:00 DAY ' UPDATE/EXAM: Nursing reports pt slept well; he did comply with hs Zyprexa 10 mg last night; observed to have residual MIRTHA and mix of grandiose and persecutory delusion by staff - see excellent progress note by mental health tech yesterday / on direct exam today pt presents as better kempt, initially pleasant but becomes more irritable and disorganized when he understands he will not be immediately DC'd but extended to further stabilize and arrive at a definitive DC plan; he does understand the discussion including meds review and my intention to increase Zyprexa dose and adding Depakote bid; he initially agrees and then states he may resist. ASSESSMENT/PLAN: residual psychotic acuity and affective lability/ increase Zyprexa to 5/10 mg qd, begin Depakote trial @ 250 mg bid; CP reviewed with Nursing in Rounds; will request COM 02/11/17 12:00 DAY UPDATE/EXAM: Nursing reports pt did comply with hs Zyprexa after refusing AM med yesterday/ on direct exam today is initially resistant to meds and evidencing the residual PI and grandiose thought pattern despite my focussed and very direct comments about the need for medications and that inpt rx will be extended to stabilize MS; pt then electively requested second meeting and said he would comply and generally was more conversant; he does understand that I will request COM as a backup strategy given his fluidity of accepting meds; he also understands that I did reach [facility] for further intake early this AM; finally during third contact we had a brief speaker phone contact with his supportive grandmother who stated she could transport him back to [place] to family home at [place]. ASSESSMENT/PLAN: residual MS instability but today agreeing to take medications / no change in meds or management plan 02/14/17 11:00 DAY UPDATE/EXAM: Nursing reports pt has continued to resist taking medications; o/w has been in behavioral control but continues with observable lability, MIRTHA, intrusiveness/ on direct exam does evidence child-like and loosely associated thought process; does agree to take lower dose of Depakote( 125 mg bid) and change from Depakote to Abilify (2mg bid); pt told that COM request filed today. ASSESSMENT/PLAN: residual affective and psychotic acuity/ meds prescribed as referenced; CP discussed with Nursing in Rounds 02/15/17 14:00 DAY UPDATE/EXAM: pt again engaging in rx plan and has decided to cooperate with meds trial today// on exam remains elevated, mildly labile, better organized having taken hs meds at 0200 and agrees to take meds in the bid regimen. ASSESSMENT/PLAN: residual acuity but currently starting to comply with meds/ no change in current meds and management plan 02/16/17 09:00 DAY UPDATE/EXAM: Nursing reports pt evidences observable residual acuity a/w lability, IOR/PI; remains in behavioral control and thus far c/w meds and cares , using art materials individually/ on direct exam pt begins in conversant mode telling me that he cannot continues to talk with parents by telephone because they are "too anxious and keep telling me what to do" - states his preference to stay in [place] and f/u psychiatric treatment post DC here; however he escalates when I advise him that his connection to parents will continue and we should work together to improve the communications, he continues to become increasingly angry and entitled and language progressively less precise and then disorganized with emerging IOR and his answers being the only "right" ones. ASSESSMENT/PLAN: residual lability, reactivity, and underlying psychosis remains present; complicating feature is pt's structural entitlement/ will updose medications tomorrow; The STC has been discovered as misplaced and not in chart after being originally done on 02/09; will activate an M1 Hold and then reactivate a STC plus inform the Court to insure the COM request is effectively engaging the Court process. 02/17/17 DAY UPDATE/EXAM: Nursing reports pt responded positively to limit setting during [facility]'s visit with pt when she called him out for his infantile entitlement - pt has been better behaved and compliant with the increased dosing of the Depakote and Abilify beginning this AM/ on direct exam he presents as conversant and cooperative; syndromal update, meds and privilege status effectively discussed. ASSESSMENT/PLAN: Progress in recompensation; residual affective lability and psychosis albeit improved/ Depakote increased to 250 mg bid and Abilify increased to 7 mg qd; continue current management plan; will initiate AG's 02/18/17 12:30 DAY UPDATE/EXAM: Nursing observes paced progress continuing/ direct exam pt makes another infantile demand to be discharged, stating he's improved "enough to leave" and reacts angrily but with less intensity and lability than previously ; does understand my explanation why inpt stay is extended for further stabilization and definitive DC planning; is interested that we include FOC in speaker ph one meeting later today or tomorrow which we will do. ASSESSMENT/PLAN: residual affective instability and infantilism; psychosis less prominient and resolving/ no change in meds of management as d/w Nursing in Rounds 02/19/17 08:00 DAY ' UPDATE/EXAM: Nursing reports pt remaining in behavioral control, c/w meds and cares; on observation evidences paced improvement in clearing residual elements of manic and psychotic elements in mental status presentation; on direct exam pt remains calm and conversant; repsonds well to reintegrative support and is positive about speaker phone meeting with FOC later into weekend a/w course update and DC planning which he affirms today he'll cooperate with dC back to family in [place]. ASSESSMENT/PLAN: better today - more integrated and compliant with meds and care plan/ no change in current meds and management plan which will reinforce milieu involvement, group attendance, use of AG's Objective: Vital Signs Temp Pulse Resp BP Pulse Ox 36.6 C 59 L 16 108/63 97 02/19/17 06:00 02/19/17 06:00 02/19/17 06:00 02/19/17 06:00 02/19/17 06:00 ICD10 Worksheet Patient Problems: Problems Problem Status Onset Acute psychosis Acute
[2017-02-19] MEDS: ARIPiprazole 5 MG TAB PO SCH (20:20)
[2017-02-20 06:16] VITALS: BP 115/61; PULSE 80
--- NOTE | 2017-02-20 06:42 | SOAPPROG ---
SOAP Progress Note Assessment/Plan: Assessment: Plan: 02/07/17 09:00 DAY UPDATE: Pt presents as 21 y/o SWM admitted to on M1 for c/o acute psychotic decompensation; pt self referred to ED, found naked standing outside ED by Security in a confused/psychotic state. Apparently has been homeless for extended time, arrested for urinating in public in [place] about 1 week ago and briefly jailed, bonded out and received mandated psychiatric assessment by Shaun Greene PhD - result unknown and no known rx intervention. Intake from parents per CC earlier revealed pt has been deteriorating over past 2 years following attending a rave libertarian in October 2014 and ingesting unknown drugs at the time. He was previously arrested in [place] in ? 2015 for defecating in ;public and placed on probation. Father drove pt back to family home in [place] after this incident but pt apparently had to return to [place] to serve out his probation. History is unclear but pt does currently have a probation office in [place]. Parents also report pt was hospitalized as a psychiatric inpt prior to returning to [place] in September 2016; was dx'd with Bipolar Disorder but apparently left shortly after DC and has been in [place] for past 5 months. Interim history unclear but pt is known to be homeless and without local support system [employer] and not thought to be engaged in any treatment since returning to [place]. Pt medically cleared, presented to [facility] and on admission to as evidencing PI,circumscribed persecutory and grandiose delusions, affective lability, ? mood elevation, dysphoria, MIRTHA, overly abstract and bizarre thought process, expressing wish to return to family home and parents. He reportedly is an only child; has attended college but not graduated; uses TLC and Kava regularly but no other known drugs; is clinically underweight and been compromised in capacity to care for himself on the streets for extended time. Physical exam negative for active problems, TS + for [facility] only and other lab screen unremarkable. ON EXAM: presents as thin, unkempt young adult male; speaks softly and with vaqueness; does say early on he does not want any medications but did state he has taken Zydis/Zyprexa 10 mg hs twice since admission; thought pattern evidences MIRTHA and overly abstract ideation, no overt H/D elicited; currently dysphoric wiht observed manic elements. Did give verbal permission for Team to speak to parents. ASSESSMENT/PLAN: residual psychotic acuity - diagnosis unclear; dysphoric - dx' ed as Bipolar by previous workup; have not r/o'd substance use problems/ no change in meds or management today; will expedite expansion of data base from collaterals 02/08/17 11:45 DAY UPDATE/EXAM: Nursing reports pt continues to comply with Zydis 10 mg hs, is observed to be calmer, more organized albeit with residual overly abstract and bizarre thought process; other psychotic elements not r/o'd/ on direct exam indeed presents with better organization of thought process b/w residual MIRTHA; responsive to reintegrative support; states he wishes to return home when stable and again agrees with my contacting parents; acknowledges that life course has been downhill after trying to attend college in fall 2013 and that a factor in slide was the heavy use of cannabis. ASSESSMENT/PLAN: early phase improvement/ no change in meds or management; case review with emphasis on mobilizing pt into milieu and group program; call to FOC pending 02/09/17 DAY UPDATE/EXAM: Nursing reports patient more organized, in behavioral control, compliant with cares but did not take hs Zyprexa and is currently resistant / on direct exam pt is calm, cooperative, conversant; minimizing problems and presenting in mildly defiant manner his right "to live my life" and preoccupied with DC; does stay in affective control and evidences prepsychotic/psychotic denial/distortion and circumscribed IOR. INTAKE/FOC: Father describes pt's acutely psychotic state last year when bonded out of [place] [facility] and driven back to [place].; pt hospitalized acutely for 13 days and given Risperdal, Depakote, and depot Invega, stabilized but did not follow up with outpt rx; father states he did not noticeably regress prior to returning to [place] in [place] to complete his probationary period and was relatively uninformed about pt's course since arriving back in [place] 4 + months ago. ASSESSMENT/PLAN: further improved descriptively b/w residual residual psychosis and no evident residual rafael; is now meds resistant/ will contact pt's PO to clarify further history of present illness and remaining terms of probation; will reassess approach to current meds resistance. 02/10/17 09:00 DAY ' UPDATE/EXAM: Nursing reports pt slept well; he did comply with hs Zyprexa 10 mg last night; observed to have residual MIRTHA and mix of grandiose and persecutory delusion by staff - see excellent progress note by mental health tech yesterday / on direct exam today pt presents as better kempt, initially pleasant but becomes more irritable and disorganized when he understands he will not be immediately DC'd but extended to further stabilize and arrive at a definitive DC plan; he does understand the discussion including meds review and my intention to increase Zyprexa dose and adding Depakote bid; he initially agrees and then states he may resist. ASSESSMENT/PLAN: residual psychotic acuity and affective lability/ increase Zyprexa to 5/10 mg qd, begin Depakote trial @ 250 mg bid; CP reviewed with Nursing in Rounds; will request COM 02/11/17 12:00 DAY UPDATE/EXAM: Nursing reports pt did comply with hs Zyprexa after refusing AM med yesterday/ on direct exam today is initially resistant to meds and evidencing the residual PI and grandiose thought pattern despite my focussed and very direct comments about the need for medications and that inpt rx will be extended to stabilize MS; pt then electively requested second meeting and said he would comply and generally was more conversant; he does understand that I will request COM as a backup strategy given his fluidity of accepting meds; he also understands that I did reach [facility] for further intake early this AM; finally during third contact we had a brief speaker phone contact with his supportive grandmother who stated she could transport him back to [place] to family home at [place]. ASSESSMENT/PLAN: residual MS instability but today agreeing to take medications / no change in meds or management plan 02/14/17 11:00 DAY UPDATE/EXAM: Nursing reports pt has continued to resist taking medications; o/w has been in behavioral control but continues with observable lability, MIRTHA, intrusiveness/ on direct exam does evidence child-like and loosely associated thought process; does agree to take lower dose of Depakote( 125 mg bid) and change from Depakote to Abilify (2mg bid); pt told that COM request filed today. ASSESSMENT/PLAN: residual affective and psychotic acuity/ meds prescribed as referenced; CP discussed with Nursing in Rounds 02/15/17 14:00 DAY UPDATE/EXAM: pt again engaging in rx plan and has decided to cooperate with meds trial today// on exam remains elevated, mildly labile, better organized having taken hs meds at 0200 and agrees to take meds in the bid regimen. ASSESSMENT/PLAN: residual acuity but currently starting to comply with meds/ no change in current meds and management plan 02/16/17 09:00 DAY UPDATE/EXAM: Nursing reports pt evidences observable residual acuity a/w lability, IOR/PI; remains in behavioral control and thus far c/w meds and cares , using art materials individually/ on direct exam pt begins in conversant mode telling me that he cannot continues to talk with parents by telephone because they are "too anxious and keep telling me what to do" - states his preference to stay in [place] and f/u psychiatric treatment post DC here; however he escalates when I advise him that his connection to parents will continue and we should work together to improve the communications, he continues to become increasingly angry and entitled and language progressively less precise and then disorganized with emerging IOR and his answers being the only "right" ones. ASSESSMENT/PLAN: residual lability, reactivity, and underlying psychosis remains present; complicating feature is pt's structural entitlement/ will updose medications tomorrow; The STC has been discovered as misplaced and not in chart after being originally done on 02/09; will activate an M1 Hold and then reactivate a STC plus inform the Court to insure the COM request is effectively engaging the Court process. 02/17/17 DAY UPDATE/EXAM: Nursing reports pt responded positively to limit setting during [facility] visit with pt when she called him out for his infantile entitlement - pt has been better behaved and compliant with the increased dosing of the Depakote and Abilify beginning this AM/ on direct exam he presents as conversant and cooperative; syndromal update, meds and privilege status effectively discussed. ASSESSMENT/PLAN: Progress in recompensation; residual affective lability and psychosis albeit improved/ Depakote increased to 250 mg bid and Abilify increased to 7 mg qd; continue current management plan; will initiate AG's 02/18/17 12:30 DAY UPDATE/EXAM: Nursing observes paced progress continuing/ direct exam pt makes another infantile demand to be discharged, stating he's improved "enough to leave" and reacts angrily but with less intensity and lability than previously ; does understand my explanation why inpt stay is extended for further stabilization and definitive DC planning; is interested that we include FOC in speaker ph one meeting later today or tomorrow which we will do. ASSESSMENT/PLAN: residual affective instability and infantilism; psychosis less prominient and resolving/ no change in meds of management as d/w Nursing in Rounds 02/19/17 08:00 DAY UPDATE/EXAM: Nursing reports pt remaining in behavioral control, c/w meds and cares; on observation evidences paced improvement in clearing residual elements of manic and psychotic elements in mental status presentation; on direct exam pt remains calm and conversant; responds well to reintegrative support and is positive about speaker phone meeting with FOC later into weekend a/w course update and DC planning which he affirms today he'll cooperate with DC back to family in [place]. ASSESSMENT/PLAN: better today - more integrated and compliant with meds and care plan/ no change in current meds and management plan which will reinforce milieu involvement, group attendance, use of AG's 02/20/17 DAY UPDATE/EXAM: Objective: Vital Signs Temp Pulse Resp BP Pulse Ox 36.6 C 80 16 115/61 97 02/20/17 06:16 02/20/17 06:16 02/20/17 06:16 02/20/17 06:16 02/20/17 06:16 ICD10 Worksheet Patient Problems: Problems Problem Status Onset Acute psychosis Acute
[2017-02-20] MEDS: DIVALPROEX ER 250 MG TAB PO SCH (09:11)
[2017-02-20] MEDS: ARIPiprazole 2 MG TAB PO SCH (09:11)
[2017-02-20] MEDS ORDERED: DIVALPROEX ER 250 MG TAB PO SCH ×2 (14:30→21:00)
[2017-02-20] MEDS: ARIPiprazole 5 MG TAB PO SCH (21:51)
--- NOTE | 2017-02-21 06:15 | SOAPPROG ---
SOAP Progress Note Assessment/Plan: Assessment: Plan: 02/07/17 09:00 DAY UPDATE: Pt presents as 21 y/o SWM admitted to on M1 for c/o acute psychotic decompensation; pt self referred to ED, found naked standing outside ED by Security in a confused/psychotic state. Apparently has been homeless for extended time, arrested for urinating in public in [place] about 1 week ago and briefly jailed, bonded out and received mandated psychiatric assessment by Shaun Greene PhD - result unknown and no known rx intervention. Intake from parents per CC earlier revealed pt has been deteriorating over past 2 years following attending a rave libertarian in October 2014 and ingesting unknown drugs at the time. He was previously arrested in [place] in ? 2015 for defecating in ;public and placed on probation. Father drove pt back to family home in [place] after this incident but pt apparently had to return to [place] to serve out his probation. History is unclear but pt does currently have a probation office in [place]. Parents also report pt was hospitalized as a psychiatric inpt prior to returning to [place] in September 2016; was dx'd with Bipolar Disorder but apparently left shortly after DC and has been in [place] for past 5 months. Interim history unclear but pt is known to be homeless and without local support system [employer] and not thought to be engaged in any treatment since returning to [place]. Pt medically cleared, [facility] and on admission to as evidencing PI,circumscribed persecutory and grandiose delusions, affective lability, ? mood elevation, dysphoria, MIRTHA, overly abstract and bizarre thought process, expressing wish to return to family home and parents. He reportedly is an only child; has attended college but not graduated; uses TLC and Kava regularly but no other known drugs; is clinically underweight and been compromised in capacity to care for himself on the streets for extended time. Physical exam negative for active problems, TS + for [facility] only and other lab screen unremarkable. ON EXAM: presents as thin, unkempt young adult male; speaks softly and with vaqueness; does say early on he does not want any medications but did state he has taken Zydis/Zyprexa 10 mg hs twice since admission; thought pattern evidences MIRTHA and overly abstract ideation, no overt H/D elicited; currently dysphoric wiht observed manic elements. Did give verbal permission for Team to speak to parents. ASSESSMENT/PLAN: residual psychotic acuity - diagnosis unclear; dysphoric - dx' ed as Bipolar by previous workup; have not r/o'd substance use problems/ no change in meds or management today; will expedite expansion of data base from collaterals 02/08/17 11:45 DAY UPDATE/EXAM: Nursing reports pt continues to comply with Zydis 10 mg hs, is observed to be calmer, more organized albeit with residual overly abstract and bizarre thought process; other psychotic elements not r/o'd/ on direct exam indeed presents with better organization of thought process b/w residual MIRTHA; responsive to reintegrative support; states he wishes to return home when stable and again agrees with my contacting parents; acknowledges that life course has been downhill after trying to attend college in fall 2013 and that a factor in slide was the heavy use of cannabis. ASSESSMENT/PLAN: early phase improvement/ no change in meds or management; case review with emphasis on mobilizing pt into milieu and group program; call to FOC pending 02/09/17 DAY UPDATE/EXAM: Nursing reports patient more organized, in behavioral control, compliant with cares but did not take hs Zyprexa and is currently resistant / on direct exam pt is calm, cooperative, conversant; minimizing problems and presenting in mildly defiant manner his right "to live my life" and preoccupied with DC; does stay in affective control and evidences prepsychotic/psychotic denial/distortion and circumscribed IOR. INTAKE/FOC: Father describes pt's acutely psychotic state last year when bonded out of [place] longterm and driven back to [place].; pt hospitalized acutely for 13 days and given Risperdal, Depakote, and depot Invega, stabilized but did not follow up with outpt rx; father states he did not noticeably regress prior to returning to [place] in September to complete his probationary period and was relatively uninformed about pt's course since arriving back in [place] 4 + months ago. ASSESSMENT/PLAN: further improved descriptively b/w residual residual psychosis and no evident residual rafael; is now meds resistant/ will contact pt's PO to clarify further history of present illness and remaining terms of probation; will reassess approach to current meds resistance. 02/10/17 09:00 DAY ' UPDATE/EXAM: Nursing reports pt slept well; he did comply with hs Zyprexa 10 mg last night; observed to have residual MIRTHA and mix of grandiose and persecutory delusion by staff - see excellent progress note by mental health tech yesterday / on direct exam today pt presents as better kempt, initially pleasant but becomes more irritable and disorganized when he understands he will not be immediately DC'd but extended to further stabilize and arrive at a definitive DC plan; he does understand the discussion including meds review and my intention to increase Zyprexa dose and adding Depakote bid; he initially agrees and then states he may resist. ASSESSMENT/PLAN: residual psychotic acuity and affective lability/ increase Zyprexa to 5/10 mg qd, begin Depakote trial @ 250 mg bid; CP reviewed with Nursing in Rounds; will request COM 02/11/17 12:00 DAY UPDATE/EXAM: Nursing reports pt did comply with hs Zyprexa after refusing AM med yesterday/ on direct exam today is initially resistant to meds and evidencing the residual PI and grandiose thought pattern despite my focussed and very direct comments about the need for medications and that inpt rx will be extended to stabilize MS; pt then electively requested second meeting and said he would comply and generally was more conversant; he does understand that I will request COM as a backup strategy given his fluidity of accepting meds; he also understands that I did reach [facility] for further intake early this AM; finally during third contact we had a brief speaker phone contact with his supportive grandmother who stated she could transport him back to [place] to family home at [place]. ASSESSMENT/PLAN: residual MS instability but today agreeing to take medications / no change in meds or management plan 02/14/17 11:00 DAY UPDATE/EXAM: Nursing reports pt has continued to resist taking medications; o/w has been in behavioral control but continues with observable lability, MIRTHA, intrusiveness/ on direct exam does evidence child-like and loosely associated thought process; does agree to take lower dose of Depakote( 125 mg bid) and change from Depakote to Abilify (2mg bid); pt told that COM request filed today. ASSESSMENT/PLAN: residual affective and psychotic acuity/ meds prescribed as referenced; CP discussed with Nursing in Rounds 02/15/17 14:00 DAY UPDATE/EXAM: pt again engaging in rx plan and has decided to cooperate with meds trial today// on exam remains elevated, mildly labile, better organized having taken hs meds at 0200 and agrees to take meds in the bid regimen. ASSESSMENT/PLAN: residual acuity but currently starting to comply with meds/ no change in current meds and management plan 02/16/17 09:00 DAY UPDATE/EXAM: Nursing reports pt evidences observable residual acuity a/w lability, IOR/PI; remains in behavioral control and thus far c/w meds and cares , using art materials individually/ on direct exam pt begins in conversant mode telling me that he cannot continues to talk with parents by telephone because they are "too anxious and keep telling me what to do" - states his preference to stay in [place] and f/u psychiatric treatment post DC here; however he escalates when I advise him that his connection to parents will continue and we should work together to improve the communications, he continues to become increasingly angry and entitled and language progressively less precise and then disorganized with emerging IOR and his answers being the only "right" ones. ASSESSMENT/PLAN: residual lability, reactivity, and underlying psychosis remains present; complicating feature is pt's structural entitlement/ will updose medications tomorrow; The STC has been discovered as misplaced and not in chart after being originally done on 02/09; will activate an M1 Hold and then reactivate a STC plus inform the Court to insure the COM request is effectively engaging the Court process. 02/17/17 DAY UPDATE/EXAM: Nursing reports pt responded positively to limit setting during [facility] visit with pt when she called him out for his infantile entitlement - pt has been better behaved and compliant with the increased dosing of the Depakote and Abilify beginning this AM/ on direct exam he presents as conversant and cooperative; syndromal update, meds and privilege status effectively discussed. ASSESSMENT/PLAN: Progress in recompensation; residual affective lability and psychosis albeit improved/ Depakote increased to 250 mg bid and Abilify increased to 7 mg qd; continue current management plan; will initiate AG's 02/18/17 12:30 DAY UPDATE/EXAM: Nursing observes paced progress continuing/ direct exam pt makes another infantile demand to be discharged, stating he's improved "enough to leave" and reacts angrily but with less intensity and lability than previously ; does understand my explanation why inpt stay is extended for further stabilization and definitive DC planning; is interested that we include FOC in speaker phone meeting later today or tomorrow which we will do. ASSESSMENT/PLAN: residual affective instability and infantilism; psychosis less prominent and resolving/ no change in meds of management as d/w Nursing in Rounds 02/19/17 08:00 DAY UPDATE/EXAM: Nursing reports pt remaining in behavioral control, c/w meds and cares; on observation evidences paced improvement in clearing residual elements of manic and psychotic elements in mental status presentation; on direct exam pt remains calm and conversant; responds well to reintegrative support and is positive about speaker phone meeting with FOC later into weekend a/w course update and DC planning which he affirms today he'll cooperate with DC back to family in [place]. ASSESSMENT/PLAN: better today - more integrated and compliant with meds and care plan/ no change in current meds and management plan which will reinforce milieu involvement, group attendance, use of AG's. 02/20/17 DAY ' UPDATE/EXAM: Nursing reports pt continuing to present with descriptive improvement; slept well, c/w cares and meds, generally calmer with diminished reactive lability and no overt psychosis; attending groups more consistently, using art supplies cooperatively, generally improved social ego functions/ on direct exam pt's overly abstract thought process resolving and he can move from this language to more precise reality-focussed thought about life planning he wants to implement upon returning home; disappointed that DC will happen on 02/25 and not 02/23 but manages affect appropriately; + speaker phone contact with father during our session during which DC plan discussed in detail - father to arrive in [place] in PM 76. ASSESSMENT/PLAN: improving course as referenced/ DK increased to 250/500 mg qd, anticipate increase in Abilify from 7 to 10 mg qd tomorrow, no change in management plan Objective: Vital Signs Temp Pulse Resp BP Pulse Ox 36.6 C 80 16 115/61 97 02/20/17 06:16 02/20/17 06:16 02/20/17 06:16 02/20/17 06:16 02/20/17 06:16 ICD10 Worksheet Patient Problems: Problems Problem Status Onset Acute psychosis Acute
--- NOTE | 2017-02-21 06:26 | SOAPPROG ---
SOAP Progress Note Assessment/Plan: Assessment: Plan: 02/07/17 09:00 DAY UPDATE: Pt presents as 21 y/o SWM admitted to on M1 for c/o acute psychotic decompensation; pt self referred to ED, found naked standing outside ED by Security in a confused/psychotic state. Apparently has been homeless for extended time, arrested for urinating in public in [place] about 1 week ago and briefly jailed, bonded out and received mandated psychiatric assessment by Shaun Greene PhD - result unknown and no known rx intervention. Intake from parents per CC earlier revealed pt has been deteriorating over past 2 years following attending a rave democrat in October 2014 and ingesting unknown drugs at the time. He was previously arrested in [place] in ? 2015 for defecating in ;public and placed on probation. Father drove pt back to family home in [place] after this incident but pt apparently had to return to [place] to serve out his probation. History is unclear but pt does currently have a probation office in [place]. Parents also report pt was hospitalized as a psychiatric inpt prior to returning to [place] in September 2016; was dx'd with Bipolar Disorder but apparently left shortly after DC and has been in [place] for past 5 months. Interim history unclear but pt is known to be homeless and without local support system [employer] and not thought to be engaged in any treatment since returning to [place]. Pt medically cleared, presented to [facility] and on admission to as evidencing PI,circumscribed persecutory and grandiose delusions, affective lability, ? mood elevation, dysphoria, MIRTHA, overly abstract and bizarre thought process, expressing wish to return to family home and parents. He reportedly is an only child; has attended college but not graduated; uses TLC and Kava regularly but no other known drugs; is clinically underweight and been compromised in capacity to care for himself on the streets for extended time. Physical exam negative for active problems, TS + for [facility] only and other lab screen unremarkable. ON EXAM: presents as thin, unkempt young adult male; speaks softly and with vaqueness; does say early on he does not want any medications but did state he has taken Zydis/Zyprexa 10 mg hs twice since admission; thought pattern evidences MIRTHA and overly abstract ideation, no overt H/D elicited; currently dysphoric wiht observed manic elements. Did give verbal permission for Team to speak to parents. ASSESSMENT/PLAN: residual psychotic acuity - diagnosis unclear; dysphoric - dx' ed as Bipolar by previous workup; have not r/o'd substance use problems/ no change in meds or management today; will expedite expansion of data base from collaterals 02/08/17 11:45 DAY UPDATE/EXAM: Nursing reports pt continues to comply with Zydis 10 mg hs, is observed to be calmer, more organized albeit with residual overly abstract and bizarre thought process; other psychotic elements not r/o'd/ on direct exam indeed presents with better organization of thought process b/w residual MIRTHA; responsive to reintegrative support; states he wishes to return home when stable and again agrees with my contacting parents; acknowledges that life course has been downhill after trying to attend college in fall 2013 and that a factor in slide was the heavy use of cannabis. ASSESSMENT/PLAN: early phase improvement/ no change in meds or management; case review with emphasis on mobilizing pt into milieu and group program; call to FOC pending 02/09/17 DAY UPDATE/EXAM: Nursing reports patient more organized, in behavioral control, compliant with cares but did not take hs Zyprexa and is currently resistant / on direct exam pt is calm, cooperative, conversant; minimizing problems and presenting in mildly defiant manner his right "to live my life" and preoccupied with DC; does stay in affective control and evidences prepsychotic/psychotic denial/distortion and circumscribed IOR. INTAKE/FOC: Father describes pt's acutely psychotic state last year when bonded out of [place] nursing home and driven back to [place].; pt hospitalized acutely for 13 days and given Risperdal, Depakote, and depot Invega, stabilized but did not follow up with outpt rx; father states he did not noticeably regress prior to returning to [place] in September to complete his probationary period and was relatively uninformed about pt's course since arriving back in [place] 4 + months ago. ASSESSMENT/PLAN: further improved descriptively b/w residual residual psychosis and no evident residual rafael; is now meds resistant/ will contact pt's PO to clarify further history of present illness and remaining terms of probation; will reassess approach to current meds resistance. 02/10/17 09:00 DAY ' UPDATE/EXAM: Nursing reports pt slept well; he did comply with hs Zyprexa 10 mg last night; observed to have residual MIRTHA and mix of grandiose and persecutory delusion by staff - see excellent progress note by mental health tech yesterday / on direct exam today pt presents as better kempt, initially pleasant but becomes more irritable and disorganized when he understands he will not be immediately DC'd but extended to further stabilize and arrive at a definitive DC plan; he does understand the discussion including meds review and my intention to increase Zyprexa dose and adding Depakote bid; he initially agrees and then states he may resist. ASSESSMENT/PLAN: residual psychotic acuity and affective lability/ increase Zyprexa to 5/10 mg qd, begin Depakote trial @ 250 mg bid; CP reviewed with Nursing in Rounds; will request COM 02/11/17 12:00 DAY UPDATE/EXAM: Nursing reports pt did comply with hs Zyprexa after refusing AM med yesterday/ on direct exam today is initially resistant to meds and evidencing the residual PI and grandiose thought pattern despite my focussed and very direct comments about the need for medications and that inpt rx will be extended to stabilize MS; pt then electively requested second meeting and said he would comply and generally was more conversant; he does understand that I will request COM as a backup strategy given his fluidity of accepting meds; he also understands that I did reach [facility] [place] early this AM; finally during third contact we had a brief speaker phone contact with his supportive grandmother who stated she could transport him back to [place] to family home at [place]. ASSESSMENT/PLAN: residual MS instability but today agreeing to take medications / no change in meds or management plan 02/14/17 11:00 DAY UPDATE/EXAM: Nursing reports pt has continued to resist taking medications; o/w has been in behavioral control but continues with observable lability, MIRTHA, intrusiveness/ on direct exam does evidence child-like and loosely associated thought process; does agree to take lower dose of Depakote( 125 mg bid) and change from Depakote to Abilify (2mg bid); pt told that COM request filed today. ASSESSMENT/PLAN: residual affective and psychotic acuity/ meds prescribed as referenced; CP discussed with Nursing in Rounds 02/15/17 14:00 DAY UPDATE/EXAM: pt again engaging in rx plan and has decided to cooperate with meds trial today// on exam remains elevated, mildly labile, better organized having taken hs meds at 0200 and agrees to take meds in the bid regimen. ASSESSMENT/PLAN: residual acuity but currently starting to comply with meds/ no change in current meds and management plan 02/16/17 09:00 DAY UPDATE/EXAM: Nursing reports pt evidences observable residual acuity a/w lability, IOR/PI; remains in behavioral control and thus far c/w meds and cares , using art materials individually/ on direct exam pt begins in conversant mode telling me that he cannot continues to talk with parents by telephone because they are "too anxious and keep telling me what to do" - states his preference to stay in [place] and f/u psychiatric treatment post DC here; however he escalates when I advise him that his connection to parents will continue and we should work together to improve the communications, he continues to become increasingly angry and entitled and language progressively less precise and then disorganized with emerging IOR and his answers being the only "right" ones. ASSESSMENT/PLAN: residual lability, reactivity, and underlying psychosis remains present; complicating feature is pt's structural entitlement/ will updose medications tomorrow; The STC has been discovered as misplaced and not in chart after being originally done on 02/09; will activate an M1 Hold and then reactivate a STC plus inform the Court to insure the COM request is effectively engaging the Court process. 02/17/17 DAY UPDATE/EXAM: Nursing reports pt responded positively to limit setting during [facility] when she called him out for his infantile entitlement - pt has been better behaved and compliant with the increased dosing of the Depakote and Abilify beginning this AM/ on direct exam he presents as conversant and cooperative; syndromal update, meds and privilege status effectively discussed. ASSESSMENT/PLAN: Progress in recompensation; residual affective lability and psychosis albeit improved/ Depakote increased to 250 mg bid and Abilify increased to 7 mg qd; continue current management plan; will initiate AG's 02/18/17 12:30 DAY UPDATE/EXAM: Nursing observes paced progress continuing/ direct exam pt makes another infantile demand to be discharged, stating he's improved "enough to leave" and reacts angrily but with less intensity and lability than previously ; does understand my explanation why inpt stay is extended for further stabilization and definitive DC planning; is interested that we include FOC in speaker phone meeting later today or tomorrow which we will do. ASSESSMENT/PLAN: residual affective instability and infantilism; psychosis less prominent and resolving/ no change in meds of management as d/w Nursing in Rounds 02/19/17 08:00 DAY UPDATE/EXAM: Nursing reports pt remaining in behavioral control, c/w meds and cares; on observation evidences paced improvement in clearing residual elements of manic and psychotic elements in mental status presentation; on direct exam pt remains calm and conversant; responds well to reintegrative support and is positive about speaker phone meeting with FOC later into weekend a/w course update and DC planning which he affirms today he'll cooperate with DC back to family in [place]. ASSESSMENT/PLAN: better today - more integrated and compliant with meds and care plan/ no change in current meds and management plan which will reinforce milieu involvement, group attendance, use of AG's. 02/20/17 DAY UPDATE/EXAM: Nursing reports pt continuing to present with descriptive improvement; slept well, c/w cares and meds, generally calmer with diminished reactive lability and no overt psychosis; attending groups more consistently, using art supplies cooperatively, generally improved social ego functions/ on direct exam pt's overly abstract thought process resolving and he can move from this language to more precise reality-focussed thought about life planning he wants to implement upon returning home; disappointed that DC will happen on 02/25 and not 02/23 but manages affect appropriately; + speaker phone contact with father during our session during which DC plan discussed in detail - father to arrive in [place] in PM 7/6. ASSESSMENT/PLAN: improving course as referenced/ DK increased to 250/500 mg qd, anticipate increase in Abilify from 7 to 10 mg qd tomorrow, no change in management plan 02/21/17 06:15 Discharge Note DAY 16/ 30' UPDATE/EXAM: Unfortunately pt eloped learly last evening while on AG's and did not return tp the unit; security and [employer] were notified. I spoke by telephone to pt's mother at 21:00 to review the incident and assure her that we would accept the pt back as inpt if he return directly or to our ED and w jeanette keep her and father posted. Pt did call the unit toady at 0300 and asked if he could come back which was affirmed by staff but he was not present on [facility] when ambulance went to pick him up to bring him to ED for assessment and readmission. I l earned of this communication this morning when arriving on the unit. A call to pt's parents is pending. ASSESSMENT/PLAN: pt remains AWOL post eloping while on AG's last PM/ he is administratively dc'd; if he returns too ED we anticipate he will be reassessed and readmitted to [facility] to complete his inpt course of treatment; I will contact parents to clarify his status. Objective: Vital Signs Temp Pulse Resp BP Pulse Ox 36.6 C 80 16 115/61 97 02/20/17 06:16 02/20/17 06:16 02/20/17 06:16 02/20/17 06:16 02/20/17 06:16 ICD10 Worksheet Patient Problems: Problems Problem Status Onset Acute psychosis Acute
--- NOTE | 2017-02-21 06:36 | SOAPPROG ---
SOAP Progress Note Assessment/Plan: Assessment: Plan: 02/07/17 09:00 DAY UPDATE: Pt presents as 21 y/o SWM admitted to on M1 for c/o acute psychotic decompensation; pt self referred to ED, found naked standing outside ED by Security in a confused/psychotic state. Apparently has been homeless for extended time, arrested for urinating in public in [place] about 1 week ago and briefly jailed, bonded out and received mandated psychiatric assessment by Shaun Greene PhD - result unknown and no known rx intervention. Intake from parents per CC earlier revealed pt has been deteriorating over past 2 years following attending a rave constitution party in October 2014 and ingesting unknown drugs at the time. He was previously arrested in [place] in ? 2015 for defecating in ;public and placed on probation. Father drove pt back to family home in [place] after this incident but pt apparently had to return to [place] to serve out his probation. History is unclear but pt does currently have a probation office in [place]. Parents also report pt was hospitalized as a psychiatric inpt prior to returning to [place] in September 2016; was dx'd with Bipolar Disorder but apparently left shortly after DC and has been in [place] for past 5 months. 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 Pt medically cleared, presented to [facility] and on admission to as evidencing PI,circumscribed persecutory and grandiose delusions, affective lability, ? mood elevation, dysphoria, MIRTHA, overly abstract and bizarre thought process, expressing wish to return to family home and parents. He reportedly is an only child; has attended college but not graduated; uses TLC and Kava regularly but no other known drugs; is clinically underweight and been compromised in capacity to care for himself on the streets for extended time. Physical exam negative for active problems, TS + for [facility] only and other lab screen unremarkable. ON EXAM: presents as thin, unkempt young adult male; speaks softly and with vaqueness; does say early on he does not want any medications but did state he has taken Zydis/Zyprexa 10 mg hs twice since admission; thought pattern evidences MIRTHA and overly abstract ideation, no overt H/D elicited; currently dysphoric wiht observed manic elements. Did give verbal permission for Team to speak to parents. ASSESSMENT/PLAN: residual psychotic acuity - diagnosis unclear; dysphoric - dx' ed as Bipolar by previous workup; have not r/o'd substance use problems/ no change in meds or management today; will expedite expansion of data base from collaterals 02/08/17 11:45 DAY UPDATE/EXAM: Nursing reports pt continues to comply with Zydis 10 mg hs, is observed to be calmer, more organized albeit with residual overly abstract and bizarre thought process; other psychotic elements not r/o'd/ on direct exam indeed presents with better organization of thought process b/w residual MIRTHA; responsive to reintegrative support; states he wishes to return home when stable and again agrees with my contacting parents; acknowledges that life course has been downhill after trying to attend college in fall 2013 and that a factor in slide was the heavy use of cannabis. ASSESSMENT/PLAN: early phase improvement/ no change in meds or management; case review with emphasis on mobilizing pt into milieu and group program; call to FOC pending 02/09/17 DAY UPDATE/EXAM: Nursing reports patient more organized, in behavioral control, compliant with cares but did not take hs Zyprexa and is currently resistant / on direct exam pt is calm, cooperative, conversant; minimizing problems and presenting in mildly defiant manner his right "to live my life" and preoccupied with DC; does stay in affective control and evidences prepsychotic/psychotic denial/distortion and circumscribed IOR. INTAKE/FOC: Father describes pt's acutely psychotic state last year when bonded out of [place] [facility] [facility] and driven back to [place].; pt hospitalized acutely for 13 days and given Risperdal, Depakote, and depot Invega, stabilized but did not follow up with outpt rx; father states he did not noticeably regress prior to returning to [place] in September to complete his probationary period and was relatively uninformed about pt's course since arriving back in [place] 4 + months ago. ASSESSMENT/PLAN: further improved descriptively b/w residual residual psychosis and no evident residual rafael; is now meds resistant/ will contact pt's PO to clarify further history of present illness and remaining terms of probation; will reassess approach to current meds resistance. 02/10/17 09:00 DAY ' UPDATE/EXAM: Nursing reports pt slept well; he did comply with hs Zyprexa 10 mg last night; observed to have residual MIRTHA and mix of grandiose and persecutory delusion by staff - see excellent progress note by mental health tech yesterday / on direct exam today pt presents as better kempt, initially pleasant but becomes more irritable and disorganized when he understands he will not be immediately DC'd but extended to further stabilize and arrive at a definitive DC plan; he does understand the discussion including meds review and my intention to increase Zyprexa dose and adding Depakote bid; he initially agrees and then states he may resist. ASSESSMENT/PLAN: residual psychotic acuity and affective lability/ increase Zyprexa to 5/10 mg qd, begin Depakote trial @ 250 mg bid; CP reviewed with Nursing in Rounds; will request COM 02/11/17 12:00 DAY UPDATE/EXAM: Nursing reports pt did comply with hs Zyprexa after refusing AM med yesterday/ on direct exam today is initially resistant to meds and evidencing the residual PI and grandiose thought pattern despite my focussed and very direct comments about the need for medications and that inpt rx will be extended to stabilize MS; pt then electively requested second meeting and said he would comply and generally was more conversant; he does understand that I will request COM as a backup strategy given his fluidity of accepting meds; he also understands that I did reach [facility] for further intake early this AM; finally during third contact we had a brief speaker phone contact with his supportive grandmother who stated she could transport him back to [place] to family home at [place]. ASSESSMENT/PLAN: residual MS instability but today agreeing to take medications / no change in meds or management plan 02/14/17 11:00 DAY UPDATE/EXAM: Nursing reports pt has continued to resist taking medications; o/w has been in behavioral control but continues with observable lability, MIRTHA, intrusiveness/ on direct exam does evidence child-like and loosely associated thought process; does agree to take lower dose of Depakote( 125 mg bid) and change from Depakote to Abilify (2mg bid); pt told that COM request filed today. ASSESSMENT/PLAN: residual affective and psychotic acuity/ meds prescribed as referenced; CP discussed with Nursing in Rounds 02/15/17 14:00 DAY UPDATE/EXAM: pt again engaging in rx plan and has decided to cooperate with meds trial today// on exam remains elevated, mildly labile, better organized having taken hs meds at 0200 and agrees to take meds in the bid regimen. ASSESSMENT/PLAN: residual acuity but currently starting to comply with meds/ no change in current meds and management plan 02/16/17 09:00 DAY UPDATE/EXAM: Nursing reports pt evidences observable residual acuity a/w lability, IOR/PI; remains in behavioral control and thus far c/w meds and cares , using art materials individually/ on direct exam pt begins in conversant mode telling me that he cannot continues to talk with parents by telephone because they are "too anxious and keep telling me what to do" - states his preference to stay in [place] and f/u psychiatric treatment post DC here; however he escalates when I advise him that his connection to parents will continue and we should work together to improve the communications, he continues to become increasingly angry and entitled and language progressively less precise and then disorganized with emerging IOR and his answers being the only "right" ones. ASSESSMENT/PLAN: residual lability, reactivity, and underlying psychosis remains present; complicating feature is pt's structural entitlement/ will updose medications tomorrow; The STC has been discovered as misplaced and not in chart after being originally done on 02/09; will activate an M1 Hold and then reactivate a STC plus inform the Court to insure the COM request is effectively engaging the Court process. 02/17/17 DAY UPDATE/EXAM: Nursing reports pt responded positively to limit setting during [facility]'s visit with pt when she called him out for his infantile entitlement - pt has been better behaved and compliant with the increased dosing of the Depakote and Abilify beginning this AM/ on direct exam he presents as conversant and cooperative; syndromal update, meds and privilege status effectively discussed. ASSESSMENT/PLAN: Progress in recompensation; residual affective lability and psychosis albeit improved/ Depakote increased to 250 mg bid and Abilify increased to 7 mg qd; continue current management plan; will initiate AG's 02/18/17 12:30 DAY UPDATE/EXAM: Nursing observes paced progress continuing/ direct exam pt makes another infantile demand to be discharged, stating he's improved "enough to leave" and reacts angrily but with less intensity and lability than previously ; does understand my explanation why inpt stay is extended for further stabilization and definitive DC planning; is interested that we include FOC in speaker phone meeting later today or tomorrow which we will do. ASSESSMENT/PLAN: residual affective instability and infantilism; psychosis less prominent and resolving/ no change in meds of management as d/w Nursing in Rounds 02/19/17 08:00 DAY UPDATE/EXAM: Nursing reports pt remaining in behavioral control, c/w meds and cares; on observation evidences paced improvement in clearing residual elements of manic and psychotic elements in mental status presentation; on direct exam pt remains calm and conversant; responds well to reintegrative support and is positive about speaker phone meeting with FOC later into weekend a/w course update and DC planning which he affirms today he'll cooperate with DC back to family in [place]. ASSESSMENT/PLAN: better today - more integrated and compliant with meds and care plan/ no change in current meds and management plan which will reinforce milieu involvement, group attendance, use of AG's. 02/20/17 DAY UPDATE/EXAM: Nursing reports pt continuing to present with descriptive improvement; slept well, c/w cares and meds, generally calmer with diminished reactive lability and no overt psychosis; attending groups more consistently, using art supplies cooperatively, generally improved social ego functions/ on direct exam pt's overly abstract thought process resolving and he can move from this language to more precise reality-focussed thought about life planning he wants to implement upon returning home; disappointed that DC will happen on 02/25 and not 02/23 but manages affect appropriately; + speaker phone contact with father during our session during which DC plan discussed in detail - father to arrive in [place] in PM 7/6. ASSESSMENT/PLAN: improving course as referenced/ DK increased to 250/500 mg qd, anticipate increase in Abilify from 7 to 10 mg qd tomorrow, no change in management plan 02/21/17 06:15 Discharge Note DAY 16/ 30' UPDATE/EXAM: Unfortunately pt eloped early last evening while on AG's and did not return tp the unit; security and [employer] were notified. I spoke by telephone to pt's mother at 21:00 to review the incident and assure her that we would accept the pt back as inpt if he return directly or to our ED and would keep her and father posted. Pt did call the unit toady at 0300 and asked if he could come back which was affirmed by staff but he was not present on [facility] when ambulance went to pick him up to bring him to ED for assessment and readmission. I learned of this communication this morning when arriving on the unit. A call to pt's parents is pending. ASSESSMENT/PLAN: pt remains AWOL post eloping while on AG's last PM/ he is administratively dc'd; if he returns to ED we anticipate he will be reassessed and readmitted to [facility] to complete his inpt course of treatment; I will contact parents to clarify his status. NOTE: I was able to contact mother at 06:30 and provide her with an update including our readiness to readmit her son if he can return to our ED for the reassessment. Objective: Vital Signs Temp Pulse Resp BP Pulse Ox 36.6 C 80 16 115/61 97 02/20/17 06:16 02/20/17 06:16 02/20/17 06:16 02/20/17 06:16 02/20/17 06:16 ICD10 Worksheet Patient Problems: Problems Problem Status Onset Acute psychosis Acute
== END 2017-02-21 06:44 | disposition left against medical advice (07) | DRG 885 ==
LOC: BBEH 02-06 11:30
PROVIDERS: ADMIT Psychiatry & Neurology Behavioral Neurology & Neuropsychiatry; ATTEND Psychiatry & Neurology Behavioral Neurology & Neuropsychiatry
DX: F20.89 Other schizophrenia (principal); R63.6 Underweight; F12.10 Cannabis abuse, uncomplicated; F13.10 Sedative, hypnotic or anxiolytic abuse, uncomplicated; F17.200 Nicotine dependence, unspecified, uncomplicated
CPT/HCPCS: 80305; G0480

== ENCOUNTER 2017-02-24 19:39 | Inpatient (IN) | payer BC, OTHER ==
--- NOTE | 2017-02-24 20:01 | EDPHY ---
H & P Source: Patient Exam Limitations: No limitations - Medical/Surgical History Hx Asthma: No Hx Chronic Respiratory Disease: No Hx Diabetes: No Hx Cardiac Disease: No Hx Renal Disease: No Hx Cirrhosis: No Hx Alcoholism: No Hx HIV/AIDS: No Hx Splenectomy or Spleen Trauma: No Other PMH: denies - Family History Significant Family History: No pertinent family hx - Social History Smoking Status: Light smoker Alcohol Use: Occasionally Drug Use: Marijuana Time Seen by Provider: 02/24/17 19:46 HPI/ROS: CHIEF COMPLAINT: Schizophrenia HISTORY OF PRESENT ILLNESS: The patient is a 21-year-old man with a history of schizophrenia who escaped from [address] [place] [address] on Tuesday. Today [address] [place] [address] mental health aides found him at the laundry mat and began to walk him to the emergency department. One of the [address] [place] [address] nurse's also saw them walking and pulled over and drove them here. The patient has been sleeping on the street since he left. He is disheveled. He has not been eating. He has not been taking any medications. He states he had marijuana today and 1 drink of "booze ". He denies hallucinations. REVIEW OF SYSTEMS: Constitutional: denies: chills, fever, recent illness, recent injury EENTM: denies: blurred vision, double vision, nose congestion Respiratory: denies: cough, shortness of breath Cardiac: denies: chest pain, irregular heart rate, lightheadedness, palpitations Gastrointestinal/Abdominal: denies: abdominal pain, diarrhea, nausea, vomiting, blood streaked stools Genitourinary: denies: dysuria, frequency, hematuria, pain Musculoskeletal: denies: joint pain, muscle pain Skin: denies: lesions, rash, jaundice, bruising Neurological: denies: headache, numbness, paresthesia, tingling, dizziness, weakness Hematologic/Lymphatic: denies: blood clots, easy bleeding, easy bruising Immunologic/allergic: denies: HIV/AIDS, transplant EXAM: GENERAL: Disheveled, thin, eating a sandwich HEAD: Atraumatic, normocephalic. EYES: Pupils equal round and reactive to light, extraocular movements intact, sclera anicteric, conjunctiva are normal. ENT: TMs normal, nares patent, oropharynx clear without exudates. Moist mucous membranes. NECK: Normal range of motion, supple without lymphadenopathy or JVD. LUNGS: Breath sounds clear to auscultation bilaterally and equal. No wheezes rales or rhonchi. HEART: Regular rate and rhythm without murmurs, rubs or gallops. ABDOMEN: Soft, nontender, normoactive bowel sounds. No guarding, no rebound. No masses appreciated. BACK: No CVA tenderness, no spinal tenderness, step-offs or deformities EXTREMITIES: Normal range of motion, no pitting or edema. No clubbing or cyanosis. NEUROLOGICAL: Cranial nerves II through XII grossly intact. Normal speech, normal gait. 5/5 strength, normal movement in all extremities, normal sensation PSYCH: Delayed responses to questions. Answers most questions appropriately. Not angry. SKIN: Warm, dry, normal turgor, no visible rashes or lesions. (Michael Doe) Constitutional: Initial Vital Signs Temperature (C) 37.0 C 02/24/17 19:40 Heart Rate 99 02/24/17 19:40 Respiratory Rate 16 02/24/17 19:40 Blood Pressure 121/71 H 02/24/17 19:40 O2 Sat (%) 96 02/24/17 19:40 O2 Delivery Mode Room Air Allergies/Adverse Reactions: acetaminophen [From Tylenol] Allergy (Verified 02/24/17 20:10) aleeve Allergy (Uncoded 02/24/17 20:10) Home Medications: Medication Instructions Recorded NK [No Known Home Meds] 02/05/17 Medical Decision Making ED Course/Re-evaluation: 2351: Patient has been accepted by Dr. Nicole at [address] [place] [address] psychiatric. Patient be appropriately transfer. EMTALA Filled out. (Joe Carlton) Differential Diagnosis: Partial list of the Differential diagnosis considered include but were not limited to; schizophrenia, rafael, substance abuse and although unlikely based on the history and physical exam, I also considered head injury, infection. (Michael Doe) - Data Points Laboratory Results: Laboratory Results 02/24/17 20:00 02/24/17 20:00 Medications Given: Discontinued Medications Olanzapine (Zyprexa Zydis) 10 mg PO EDNOW ONE Stop: 02/24/17 22:20 Last Admin: 02/24/17 22:20 Dose: 10 mg Departure - Departure Disposition: [facility] IP Clinical Impression: Acute psychosis Condition: Fair
[2017-02-24 20:21] LABS: % IMMATURE GRANULYOCYTES 0.3 % (0.0-1.1); ABSOLUTE IMMATURE GRANULOCYTES 0.03 10^3/uL (0.00-0.10); ADD DIFF? NO; ADD MORPH? NO; ADD SCAN? NO; ATYPICAL LYMPHOCYTE FLAG 30 (0-99); FRAGMENT RBC FLAG 0 (0-99); HEMATOCRIT 43.1 % (40.0-51.0); HEMOGLOBIN 15.3 g/dL (13.7-17.5); LEFT SHIFT FLG 0 (0-99); LIPEMIA HEMOLYSIS FLAG 90 (0-99); MEAN CELL HEMOGLOBIN 29.9 pg (27.9-34.1); MEAN CELL HEMOGLOBIN CONCENTR. 35.5 g/dL (32.4-36.7); MEAN CELL VOLUME 84.2 fL (81.5-99.8); MEAN PLATELET VOLUME 10.3 fL (8.7-11.7); PLATELET CLUMPS FLAG 10 (0-99); PLATELET COUNT 190 10^3/uL (150-400); RED BLOOD CELL COUNT 5.12 10^6/uL (4.40-6.38); RED CELL DISTRIBUTION WIDTH 12.7 % (11.5-15.2)
[2017-02-24 20:43] LABS: ANION GAP 16 mEq/L (8-16); CALCIUM 10.6 mg/dL (8.5-10.4); CARBON DIOXIDE 22 mEq/l (22-31); CHLORIDE 104 mEq/L (97-110); ETHANOL SERUM < 10 mg/dL (0-10); GLOMERULAR FILTRATION RATE > 60; GLUCOSE 101 mg/dL (70-100); POTASSIUM 3.9 mEq/L (3.5-5.2); SODIUM 142 mEq/L (134-144)
[2017-02-24] MEDS ORDERED: OLANZapine DISINTEGR 10 MG TAB ONE (22:14)
[2017-02-24] MEDS ORDERED: OLANZapine DISINTEGR 10 MG TAB PO ONE (22:19)
[2017-02-24] MEDS ORDERED: MAGNESIUM HYDROXIDE 30 ML UDCUP PO PRN (23:40)
[2017-02-24] MEDS ORDERED: NICOTINE POLACRILEX 2 MG GUM B PRN (23:40)
[2017-02-24] MEDS ORDERED: MAG HYDROX/AL HYDROX/SIMETH 30 ML UDCUP PO PRN (23:40)
[2017-02-25] MEDS ORDERED: DIVALPROEX ER 250 MG TAB PO SCH (15:00)
[2017-02-25] MEDS ORDERED: ARIPiprazole 2 MG TAB PO SCH (15:00)
[2017-02-25] MEDS: DIVALPROEX ER 250 MG TAB PO SCH (15:33)
[2017-02-25] MEDS: ARIPiprazole 2 MG TAB PO SCH (15:33)
[2017-02-25] MEDS ORDERED: OLANZapine DISINTEGR 10 MG TAB PO SCH (21:00)
[2017-02-25] MEDS: DIVALPROEX ER 500 MG TAB PO SCH (21:17)
[2017-02-25] MEDS: ARIPiprazole 5 MG TAB PO SCH (21:17)
[2017-02-26] MEDS: ARIPiprazole 2 MG TAB PO SCH (08:00)
[2017-02-26] MEDS: DIVALPROEX ER 250 MG TAB PO SCH (08:00)
--- NOTE | 2017-02-26 10:18 | BAPA ---
[f rep st] ADMISSION PSYCHIATRIC ASSESSMENT PATIENT IDENTIFICATION: This patient presents as a 21-year-old, single, white male, admitted for the 2nd time to [address] [place] [address] on an M1 hold for complaints of an acute psychotic decompensation. The patient had been admitted for similar complaints to [address] [place] [address] on an M1 hold on 02/06/2017. He was improving in a discharge planning phase with a scheduled discharge date of 02/25 when he eloped from the inpatient unit while using accompanied grounds privileges with nursing staff in the p.m., 02/20/2017. He was noted by an off-duty member of the [address] [place] [address] nursing staff to be in a laundromat location in [facility]. He appeared to be in a confused and disorganized state. He cooperated with the staff member to accompany him to walk to the [facility] Emergency Room. Another off duty [address] [place] [address] staff found the patient walking with staff and provided an automobile ride to transport the patient to the [facility] Emergency Room. There he was medically cleared, psychiatrically evaluated, found to be acutely decompensated and gravely disabled. He was then sent on to [address] [place] [address] on an M1 hold. The patient is currently homeless, has a family base where he had been living with his parents in [place] prior to coming to [place] in September 2016. He is not an identified community psychiatric outpatient at this time. CHIEF COMPLAINT: "I was vibing with friends and decided to come in; I just have issues with humanity; I can see my mother's beauty." Complaints made to the emergency room physician and TLC communications consultant. HISTORY OF PRESENT ILLNESS: The patient presented with a chronic history extending over 2+ years for emerging symptoms in a variable pattern consistent with a major psychotic disorder best represented as a Schizoaffective Disorder. Paralleling this chronic and emerging syndromal course was the patient's consistent pattern of substance use problems associated primarily with kava and TLC. Patient has been a daily user of TLC for an extended period of time. The patient was arrested in May 2016 in [place] for defecating in public, presenting as acutely psychotic at the time. Instead of being hospitalized as a psychiatric inpatient, the patient was apparently jailed briefly, bonded out, and directed to have a mandated psychiatric assessment. Before this assessment could be done, patient's father drove from [place], returned him to his home community where he had been living with parents previously. Father described the patient as acutely disorganized and brought him directly to an emergency room [place] where patient was hospitalized as a psychiatric inpatient. He was restabilized on the inpatient unit including utilizing medications including Risperdal, Invega, Depo-Invega, and Depakote. Workup concluded the patient was suffering from a Bipolar Disorder, Type 1. Following restabilization and discharge, the patient rejected followup outpatient treatment and stopped his medications unilaterally. He continued to live with his parents through the fall and winter. 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 The patient remained on active probation in [place] and returned to [place] in September to finish his terms of probation. Reportedly, the [place] Department of Probation had refused to transfer the probation to [place] per the parents' request. After arriving in [place] in September, the patient began a marginal life, primarily living in a homeless state, continuing to abuse kava and his daily use pattern of TLC. He lived intermittently with a girlfriend in various locations along with extended periods of homelessness. It is likely that patient's psychotic symptoms were emerging prior to his return to [place]. He did evidence. syndromal psychosis on a progressive basis to crisis proportions [facility]. He self-referred to the [facility] Emergency Room on the day of his initial admission to [address] [place] [address]. He was found outside the emergency room front door naked and acutely confused. He was cleared medically, seen in consultation by MIKE. He was deemed gravely disabled, as referenced, and sent on to [address] [place] [address] on an M1 hold 02/06/17. On my initial exam following his admission, the patient presented with loose associations, paranoid ideation, persecutory and grandiose delusions, idiosyncratic and overly-abstract language were elements of his thought disorder. His mood was dysphoric as well as elevated, and he presented with pressured speech and distractibility. The patient initially was resistant to using medication but with reintegrative support, did comply and was stabilized on a medication regimen including Depakote ER dosed to 250 mg q.a.m. and 500 mg h.s. plus Abilify 2 mg q.a.m. and 5 mg h.s. His syndromal status improved significantly, and patient was in his final phase of hospitalization with a discharge date set for 02/25/2017. Parents had been communicated with regularly during his inpatient stay; father was scheduled to drive to [place] and return the patient to the family home in [place] and a linked follow up outpatient psychiatric treatment plan. The patient had been utilizing supervised walking privileges on several occasions prior to his elopement in the p.m. 02/20/2017. The patient was discharged administratively on 02/21/2017 as he failed to return to the unit. The patient made several phone calls and 1 contact with the inpatient unit over the interim, 02/20 to 02/25. He had also contacted parents and agreed to return home with his father. However, he did not comply with readmission or cooperate with father to be driven home. He remained homeless and his acute psychotic symptoms resurfaced during his 5-day period in the community off all medications. As stated above, he was found by off duty 3- staff and returned to the [facility] Emergency Room. He again was cleared medically. His physical exam was unremarkable other than his disheveled state and clinically evident status of being underweight. Mental status was disorganized psychotically. Following medical clearance, he was seen by TLC. TLC notes the patient intermittently fell asleep during the interview. When awake, he evidenced loosened associations, paranoid ideation, pressured speech, accelerated pace of thinking. "It is some manipulative force with a delicate plan to do the most harm to me" as evidence of his persecutory delusions. He was deemed gravely disabled, and sent on an M1 hold for admission to [address] [place] [address]. Lab screens including a CBC, chemistries, blood alcohol level, and toxic screen were obtained. All were unremarkable or within normal limits, plus TLC was present in patient's urine screen. PSYCHIATRIC HISTORY: The patient's syndromal and treatment history is as evidenced above. The patient may have been seen in the [facility] Emergency Room on several occasions prior to his initial admission to [address] [place] [address] on 02/06. The patient, also, at some point in time following his return to the [facility] last September, did have a 1-session psychiatric assessment, which was court ordered. This was done by a Ph.D. clinician, Dr. Shaun Greene ); this report will be obtained in intake phase. MEDICAL HISTORY: No active medical problems. Clinically underweight secondary to chronically regressed self-care functions in the community. ALLERGIES: No known food or environmental allergies. Medication allergies to Aleve and Tylenol. MEDICAL REVIEW OF SYSTEMS: Negative. SUBSTANCE ABUSE HISTORY: Patient has chronic abuse use patterns associated with the herbal drug kava and TLC, which he has used chronically on a daily basis. PERSONAL HISTORY/FAMILY HISTORY: The patient is the single child in a family of origin, which includes his 2 parents who continue to remain . The patient was born and raised in [place], [place]. Patient's childhood and adolescent history was one of stability with relatively positive relationships with his parents and his maternal grandparents who lived on a ranch in [place]. Patient regularly spent [place] on the ranch and was close to these grandparents. Patient's grandfather is a legendary mileyboy, well known in the [employer] community. 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 His functional history began to deteriorate following graduation from high school. Patient attended college for 1 month and then dropped out to return home. His cannabis habit had become daily, and his vulnerability to psychosis was beginning to emerge at this time. 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 Parents described him as becoming more withdrawn, internally preoccupied, not seeing friends in his local community. The patient did travel on his own to [place] in 2015 and continued to spiral downhill, culminating in the acute psychotic episode in May of 2016 as described in the HPI. Patient continues to be single, has procreated no children. Has no social support system in [place]. There is no known family pedigree for addictive and/or psychiatric illness. LEGAL HISTORY: The patient was arrested for disturbing the peace after defecating in public in May 2016 in [place]. He remains on active probation. There are renewed efforts currently to transfer patient's probationary status to [place], such that he can return to the family home and engage in psychiatric treatment in that state while attending to his probation. ADMISSION MENTAL STATUS EXAM: On direct exam, the patient appears thin, ill appearing, and disheveled. His gait and station appear normal. He does engage in a cooperative and conversant manner in this initial contact. His mood state is a mix of dysphoria and mild elevation. Affective expression blunted. His thought process is slowed, markedly concrete, and circumstantial. He does express vagueness and overly abstract language at times. There are no elba hallucinations or delusions elicited. The patient relates in a hesitant and guarded manner. His memory functions are difficult to assess as he is guarded and constrained in his disclosure. He does state he is "glad" to be back in the hospital, states he will comply with medications, which I discussed in concrete detail. Currently, his impulse control is intact, judgment poor, and insight poor. He does state he will cooperate with engaging his inpatient treatment plan. He states he agrees with the goals of returning to [place] with his father when he is clinically stable. He gives a general impression of being disorganized, internally preoccupied, and dysphoric with an element in parallel of mild mood elevation. FORMULATION: This patient presents as a 21-year-old, single, white male who was readmitted for complaints of an acute psychotic decompensation after eloping from the inpatient service on 02/20/2017. At the time of his elopement , he had resolved most of his psychotic acuity, was evidencing mild residual of mixed elevated and dysphoric mood elements. Off medications from 02/20 through 02/24 has allowed his psychotic vulnerability to reemerge with mixed grandiose and persecutory delusions and overall disorganization. He was also unable to manage himself affectively in the community, living on the street, absent engaging any support system. He is readmitted to restabilize his mental status and work through to a therapeutic discharge to linked outpatient treatment resources in his home community in [place], returning to live with his parents as had been previously planned prior to the elopement. ADMISSION DIAGNOSTIC IMPRESSION: Wanette I: 1. Schizoaffective Disorder, exacerbation. 2. Substance-induced psychoses recurrent pattern by history 3. TLC-induced Psychotic Disorder. Chronic history, recurrent episodes, question exacerbation. 4. Kava Use Disorder. Chronic history, intermediate severity, question active prior to admission. 5. TLC Use Disorder. Chronic history. Severe. Active prior to admission. Wanette II: Prominent traits associated with social immaturity, entitlement, over dependence. Wanette III: 1. No active medical problems. 2. Clinical underweight secondary to chronically regressed self-care functions in the community. Wanette IV: Primary stressors associated with patient's recent elopement during the final phase of his initial [facility] course of treatment. Patient eloped on 02/20 and has been off psychoactive medications through to his readmission today ; chronic stressors associated with the absence of a community psychiatric and sobriety treatment plan for this vulnerable young man. Wanette V: Admission GAF 35. INITIAL TREATMENT PLAN: 1. Nursing. Complete admission assessment; monitor for safety and elopement; reinforce compliance with cares and medications; re-engage the patient in the social milieu and group program. 2. Psychiatry. Complete admission assessment; provide daily E/M contacts to provide reintegrative psychotherapy, assess and manage psychoactive medication needs, ally patient to linked discharge resources at time of discharge. 3. Clinical Coordinator. Maintain contact with patient's parents and finalize links to discharge resources in patient's catchment area in [place]. 4. Admission medical consultation pending. 5. Medications. Will resume patient's medications he was taking prior to elopement including Abilify 7 mg daily and Depakote 750 mg daily, both in divided doses. 6. Prioritize inpatient goals. Restabilize mental status; ally patient with followup treatment with final discharge to [facility] to transport him back to family home in [place] and followup community treatment. /[id number]/MODL MTDD
--- NOTE | 2017-02-26 11:29 | SOAPPROG ---
SAMI Progress Note Assessment/Plan: Assessment: Plan: 02/26/17 10:30 DAY ' UPDATE/EXAM: Nursing reports pt slept 9 hours, c/w cares and meds, appetite good ; was found with female pt in bed moments after she entered his room in pm yesterday; cooperated with staff intervention and verbal limits; female pt known to be paying inappropriate attention to other patients sexually/ on direct exam pt's less guarded and slightly better organized; still with MIRTHA and distractable; reinforced positively @ compliance with cares and meds; states wish to call his parents today and responsive to calling them tomorrow in speaker phone in family meeting. ASSESSMENT/PLAN: early phase imrovement since resuming medications 48 hours ago ; residual psychotic acuity/ no change in meds and management plan as d/w Nursing in Rounds Objective: Vital Signs Temp Pulse Resp BP Pulse Ox 36.6 C 78 12 118/70 98 02/25/17 00:54 02/25/17 00:54 02/25/17 00:54 02/25/17 00:54 02/25/17 00:54 ICD10 Worksheet Patient Problems: Problems Problem Status Onset Acute psychosis Acute
[2017-02-26] MEDS: DIVALPROEX ER 500 MG TAB PO SCH (20:52)
[2017-02-26] MEDS: ARIPiprazole 5 MG TAB PO SCH (20:52)
[2017-02-27] MEDS: DIVALPROEX ER 250 MG TAB PO SCH ×2 (07:55→12:27)
[2017-02-27] MEDS: ARIPiprazole 2 MG TAB PO SCH (12:27)
--- NOTE | 2017-02-27 13:20 | SOAPPROG ---
SAMI Progress Note Assessment/Plan: Assessment: Plan: 02/26/17 10:30 DAY ' UPDATE/EXAM: Nursing reports pt slept 9 hours, c/w cares and meds, appetite good ; was found with female pt in bed moments after she entered his room in pm yesterday; cooperated with staff intervention and verbal limits; female pt known to be paying inappropriate attention to other patients sexually/ on direct exam pt's less guarded and slightly better organized; still with IMRTHA and distractible; reinforced positively @ compliance with cares and meds; states wish to call his parents today and responsive to calling them tomorrow in speaker phone in family meeting. ASSESSMENT/PLAN: early phase improvement since resuming medications 48 hours ago ; residual psychotic acuity/ no change in meds and management plan as d/w Nursing in Rounds 02/27/17 11:00 UPDATE/EXAM: Nursing reports pt slept well, is now not complying with meds this AM after taking meds bid yesterday/ on direct exam he is preoccupied with DC, states he's well, now wants to live in [place] and not go back to family home - immature and entitled thought pattern re-emerging and integrating with more prominent denial and distortion defenses; no overt psychosis elicited; corrective inputs applied but pt resistant; he knows I l/m for parents to call back for update and speaker phone meeting possibly today if c/b in time. Was clear with pt about my thinking that inpt stay extended for mental status restabilization and definitive DC planning ASSESSMENT/PLAN: recompensating but now entitlement and denial more prominent/ c /b from parents pending; no change in meds; anticipate filing for [facility]; will also explore possibility of probating community treatment post DC Objective: Vital Signs Temp Pulse Resp BP Pulse Ox 36.6 C 75 14 120/70 97 02/27/17 06:00 02/27/17 06:00 02/27/17 06:00 02/27/17 06:00 02/27/17 06:00 ICD10 Worksheet Patient Problems: Problems Problem Status Onset Acute psychosis Acute
[2017-02-27] MEDS: DIVALPROEX ER 500 MG TAB PO SCH (22:21)
[2017-02-27] MEDS: ARIPiprazole 5 MG TAB PO SCH (22:22)
--- NOTE | 2017-02-28 08:26 | SOAPPROG ---
SAMI Progress Note Assessment/Plan: Assessment: Plan: 02/26/17 10:30 DAY UPDATE/EXAM: Nursing reports pt slept 9 hours, c/w cares and meds, appetite good ; was found with female pt in bed moments after she entered his room in pm yesterday; cooperated with staff intervention and verbal limits; female pt known to be paying inappropriate attention to other patients sexually/ on direct exam pt's less guarded and slightly better organized; still with MIRTHA and distractible; reinforced positively @ compliance with cares and meds; states wish to call his parents today and responsive to calling them tomorrow in speaker phone in family meeting. ASSESSMENT/PLAN: early phase improvement since resuming medications 48 hours ago ; residual psychotic acuity/ no change in meds and management plan as d/w Nursing in Rounds 02/27/17 11:00 DAY UPDATE/EXAM: Nursing reports pt slept well, is now not complying with meds this AM after taking meds bid yesterday/ on direct exam he is preoccupied with DC, states he's well, now wants to live in [place] and not go back to family home - immature and entitled thought pattern re-emerging and integrating with more prominent denial and distortion defenses; no overt psychosis elicited; corrective inputs applied but pt resistant; he knows I l/m for parents to call back for update and speaker phone meeting possibly today if c/b in time. Was clear with pt about my thinking that inpt stay extended for mental status restabilization and definitive DC planning ASSESSMENT/PLAN: recompensating but now entitlement and denial more prominent/ c /b from parents pending; no change in meds; anticipate filing for [facility]; will also explore possibility of probating community treatment post DC 02/28/17 DAY UPDATE/EXAM: Objective: Vital Signs Temp Pulse Resp BP Pulse Ox 36.7 C 82 12 96/54 L 98 02/28/17 06:26 02/28/17 06:26 02/28/17 06:26 02/28/17 06:26 02/28/17 06:26 ICD10 Worksheet Patient Problems: Problems Problem Status Onset Acute psychosis Acute
[2017-02-28] MEDS: ARIPiprazole 2 MG TAB PO SCH (08:36)
--- NOTE | 2017-02-28 13:36 | SOAPPROG ---
SOAP Progress Note Assessment/Plan: Assessment: Plan: 02/26/17 10:30 DAY UPDATE/EXAM: Nursing reports pt slept 9 hours, c/w cares and meds, appetite good ; was found with female pt in bed moments after she entered his room in pm yesterday; cooperated with staff intervention and verbal limits; female pt known to be paying inappropriate attention to other patients sexually/ on direct exam pt's less guarded and slightly better organized; still with MIRTHA and distractible; reinforced positively @ compliance with cares and meds; states wish to call his parents today and responsive to calling them tomorrow in speaker phone in family meeting. ASSESSMENT/PLAN: early phase improvement since resuming medications 48 hours ago ; residual psychotic acuity/ no change in meds and management plan as d/w Nursing in Rounds 02/27/17 11:00 DAY UPDATE/EXAM: Nursing reports pt slept well, is now not complying with meds this AM after taking meds bid yesterday/ on direct exam he is preoccupied with DC, states he's well, now wants to live in [place] and not go back to family home - immature and entitled thought pattern re-emerging and integrating with more prominent denial and distortion defenses; no overt psychosis elicited; corrective inputs applied but pt resistant; he knows I l/m for parents to call back for update and speaker phone meeting possibly today if c/b in time. Was clear with pt about my thinking that inpt stay extended for mental status restabilization and definitive DC planning ASSESSMENT/PLAN: recompensating but now entitlement and denial more prominent/ c /b from parents pending; no change in meds; anticipate filing for [facility]; will also explore possibility of probating community treatment post DC 02/28/17 11:00 DAY UPDATE/EXAM: Nursing reports pt continues to resist medication thru three standing doses yesterday and this AM; observable emerging thought disorder and lability; on direct exam and during speaker phone meeting with both parents pt slipping into idiosyncratic and overly-abstract thought pattern indicative of psychosis; also more labile and leaves the office angrily before the end of the family meeting; s/w parents after pt left and clarified the inpt course extension and my again requesting COM. ASSESSMENT/PLAN: now beginning to regress with emerging thought disorder and affective lability as off meds 36 hours/ will continue efforts to influence pt to resume meds compliance but in parallel again request COM; management plan d/ w Nursing inRounds Objective: Vital Signs Temp Pulse Resp BP Pulse Ox 36.7 C 82 12 96/54 L 98 02/28/17 06:26 02/28/17 06:26 02/28/17 06:26 02/28/17 06:26 02/28/17 06:26 ICD10 Worksheet Patient Problems: Problems Problem Status Onset Acute psychosis Acute
[2017-02-28] MEDS: ARIPiprazole 5 MG TAB PO SCH (21:09)
[2017-02-28] MEDS: DIVALPROEX ER 500 MG TAB PO SCH (21:09)
[2017-03-01] MEDS: DIVALPROEX ER 250 MG TAB PO SCH (09:12)
[2017-03-01] MEDS: ARIPiprazole 2 MG TAB PO SCH (09:12)
--- NOTE | 2017-03-01 10:57 | SOAPPROG ---
SOAP Progress Note Assessment/Plan: Assessment: Plan: 02/26/17 10:30 DAY UPDATE/EXAM: Nursing reports pt slept 9 hours, c/w cares and meds, appetite good ; was found with female pt in bed moments after she entered his room in pm yesterday; cooperated with staff intervention and verbal limits; female pt known to be paying inappropriate attention to other patients sexually/ on direct exam pt's less guarded and slightly better organized; still with MIRTHA and distractible; reinforced positively @ compliance with cares and meds; states wish to call his parents today and responsive to calling them tomorrow in speaker phone in family meeting. ASSESSMENT/PLAN: early phase improvement since resuming medications 48 hours ago ; residual psychotic acuity/ no change in meds and management plan as d/w Nursing in Rounds 02/27/17 11:00 DAY UPDATE/EXAM: Nursing reports pt slept well, is now not complying with meds this AM after taking meds bid yesterday/ on direct exam he is preoccupied with DC, states he's well, now wants to live in [place] and not go back to family home - immature and entitled thought pattern re-emerging and integrating with more prominent denial and distortion defenses; no overt psychosis elicited; corrective inputs applied but pt resistant; he knows I l/m for parents to call back for update and speaker phone meeting possibly today if c/b in time. Was clear with pt about my thinking that inpt stay extended for mental status restabilization and definitive DC planning ASSESSMENT/PLAN: recompensating but now entitlement and denial more prominent/ c /b from parents pending; no change in meds; anticipate filing for COM; will also explore possibility of probating community treatment post DC 02/28/17 11:00 DAY UPDATE/EXAM: Nursing reports pt continues to resist medication thru three standing doses yesterday and this AM; observable emerging thought disorder and lability; on direct exam and during speaker phone meeting with both parents pt slipping into idiosyncratic and overly-abstract thought pattern indicative of psychosis; also more labile and leaves the office angrily before the end of the family meeting; s/w parents after pt left and clarified the inpt course extension and my again requesting COM. ASSESSMENT/PLAN: now beginning to regress with emerging thought disorder and affective lability as off meds 36 hours/ will continue efforts to influence pt to resume meds compliance but in parallel again request COM; management plan d/ w Nursing inRounds 03/01/17 08:45 DAY ' UPDATE/EXAM: Nursing reports pt has continued to resist medication thru this AM , has been behavioral control, partially attending to ADL'S, attending selective groups; evidences thought disorder with illogical thought process and sustained overly abstract and idiosyncratic thought process/ on direct exam he presents as calm, conversant, very concrete and impoverished thought process; does indicated he want to "settle down" and go to groups and will accept different medications as the Abilify and Depakote cause dyspepsia and "nightmares"; I agree to change his meds altho I state his c/o side effects may not be related to the meds - again explain the value of medication in helping thoughts become more reality-based and understandable to him and others. ASSESSMENT/PLAN: residual psychotic acuity and vulnerability to affective instability in his unmedicated state/ will offer pt [place] ER and Risperdal m tabs or Invega; request COM; management plan d/w Nursing in Rounds Objective: Vital Signs Temp Pulse Resp BP Pulse Ox 36.7 C 67 14 119/68 100 03/01/17 06:00 03/01/17 06:00 03/01/17 06:00 03/01/17 06:00 03/01/17 06:00 ICD10 Worksheet Patient Problems: Problems Problem Status Onset Acute psychosis Acute
[2017-03-01] MEDS: ARIPiprazole 5 MG TAB PO SCH (20:54)
[2017-03-01] MEDS: DIVALPROEX ER 500 MG TAB PO SCH (20:54)
--- NOTE | 2017-03-02 08:41 | SOAPPROG ---
SOAP Progress Note Assessment/Plan: Assessment: Plan: 02/26/17 10:30 DAY UPDATE/EXAM: Nursing reports pt slept 9 hours, c/w cares and meds, appetite good ; was found with female pt in bed moments after she entered his room in pm yesterday; cooperated with staff intervention and verbal limits; female pt known to be paying inappropriate attention to other patients sexually/ on direct exam pt's less guarded and slightly better organized; still with MIRTHA and distractible; reinforced positively @ compliance with cares and meds; states wish to call his parents today and responsive to calling them tomorrow in speaker phone in family meeting. ASSESSMENT/PLAN: early phase improvement since resuming medications 48 hours ago ; residual psychotic acuity/ no change in meds and management plan as d/w Nursing in Rounds 02/27/17 11:00 DAY UPDATE/EXAM: Nursing reports pt slept well, is now not complying with meds this AM after taking meds bid yesterday/ on direct exam he is preoccupied with DC, states he's well, now wants to live in [place] and not go back to family home - immature and entitled thought pattern re-emerging and integrating with more prominent denial and distortion defenses; no overt psychosis elicited; corrective inputs applied but pt resistant; he knows I l/m for parents to call back for update and speaker phone meeting possibly today if c/b in time. Was clear with pt about my thinking that inpt stay extended for mental status restabilization and definitive DC planning ASSESSMENT/PLAN: recompensating but now entitlement and denial more prominent/ c /b from parents pending; no change in meds; anticipate filing for COM; will also explore possibility of probating community treatment post DC 02/28/17 11:00 DAY UPDATE/EXAM: Nursing reports pt continues to resist medication thru three standing doses yesterday and this AM; observable emerging thought disorder and lability; on direct exam and during speaker phone meeting with both parents pt slipping into idiosyncratic and overly-abstract thought pattern indicative of psychosis; also more labile and leaves the office angrily before the end of the family meeting; s/w parents after pt left and clarified the inpt course extension and my again requesting COM. ASSESSMENT/PLAN: now beginning to regress with emerging thought disorder and affective lability as off meds 36 hours/ will continue efforts to influence pt to resume meds compliance but in parallel again request COM; management plan d/ w Nursing inRounds 03/01/17 08:45 DAY UPDATE/EXAM: Nursing reports pt has continued to resist medication thru this AM , has been in behavioral control, partially attending to ADL'S, attending selective groups; evidences thought disorder with illogical thought process and sustained overly abstract and idiosyncratic thought process/ on direct exam he presents as calm, conversant, very concrete and impoverished thought process; does indicated he want to "settle down" and go to groups and will accept different medications as the Abilify and Depakote cause dyspepsia and "nightmares"; I agree to change his meds altho I state his c/o side effects may not be related to the meds - again explain the value of medication in helping thoughts become more reality-based and understandable to him and others. ASSESSMENT/PLAN: residual psychotic acuity and vulnerability to affective instability in his unmedicated state/ will offer pt [place] ER and Risperdal m tabs or Invega; request COM; management plan d/w Nursing in Rounds 03/02/17 DAY UPDATE/EXAM: Objective: Vital Signs Temp Pulse Resp BP Pulse Ox 36.6 C 62 14 99/62 L 96 03/02/17 06:16 03/02/17 06:16 03/02/17 06:16 03/02/17 06:16 03/02/17 06:16 ICD10 Worksheet Patient Problems: Problems Problem Status Onset Acute psychosis Acute
[2017-03-02] MEDS: ARIPiprazole 2 MG TAB PO SCH (09:01)
[2017-03-02] MEDS: DIVALPROEX ER 250 MG TAB PO SCH (09:01)
[2017-03-02] MEDS: lamoTRIgine 25 MG TAB PO SCH (20:39)
[2017-03-02] MEDS ORDERED: PALIPERIDONE 3 MG TAB.ER PO SCH (21:00)
[2017-03-03] MEDS: ARIPiprazole 2 MG TAB PO SCH (07:31)
--- NOTE | 2017-03-03 13:32 | SOAPPROG ---
SOAP Progress Note Assessment/Plan: Assessment: Plan: 02/26/17 10:30 DAY UPDATE/EXAM: Nursing reports pt slept 9 hours, c/w cares and meds, appetite good ; was found with female pt in bed moments after she entered his room in pm yesterday; cooperated with staff intervention and verbal limits; female pt known to be paying inappropriate attention to other patients sexually/ on direct exam pt's less guarded and slightly better organized; still with MIRTHA and distractible; reinforced positively @ compliance with cares and meds; states wish to call his parents today and responsive to calling them tomorrow in speaker phone in family meeting. ASSESSMENT/PLAN: early phase improvement since resuming medications 48 hours ago ; residual psychotic acuity/ no change in meds and management plan as d/w Nursing in Rounds 02/27/17 11:00 DAY UPDATE/EXAM: Nursing reports pt slept well, is now not complying with meds this AM after taking meds bid yesterday/ on direct exam he is preoccupied with DC, states he's well, now wants to live in [place] and not go back to family home - immature and entitled thought pattern re-emerging and integrating with more prominent denial and distortion defenses; no overt psychosis elicited; corrective inputs applied but pt resistant; he knows I l/m for parents to call back for update and speaker phone meeting possibly today if c/b in time. Was clear with pt about my thinking that inpt stay extended for mental status restabilization and definitive DC planning ASSESSMENT/PLAN: recompensating but now entitlement and denial more prominent/ c /b from parents pending; no change in meds; anticipate filing for COM; will also explore possibility of probating community treatment post DC 02/28/17 11:00 DAY UPDATE/EXAM: Nursing reports pt continues to resist medication thru three standing doses yesterday and this AM; observable emerging thought disorder and lability; on direct exam and during speaker phone meeting with both parents pt slipping into idiosyncratic and overly-abstract thought pattern indicative of psychosis; also more labile and leaves the office angrily before the end of the family meeting; s/w parents after pt left and clarified the inpt course extension and my again requesting COM. ASSESSMENT/PLAN: now beginning to regress with emerging thought disorder and affective lability as off meds 36 hours/ will continue efforts to influence pt to resume meds compliance but in parallel again request COM; management plan d/ w Nursing in Rounds 03/01/17 08:45 DAY UPDATE/EXAM: Nursing reports pt has continued to resist medication thru this AM , has been in behavioral control, partially attending to ADL'S, attending selective groups; evidences thought disorder with illogical thought process and sustained overly abstract and idiosyncratic thought process/ on direct exam he presents as calm, conversant, very concrete and impoverished thought process; does indicated he want to "settle down" and go to groups and will accept different medications as the Abilify and Depakote cause dyspepsia and "nightmares"; I agree to change his meds altho I state his c/o side effects may not be related to the meds - again explain the value of medication in helping thoughts become more reality-based and understandable to him and others. ASSESSMENT/PLAN: residual psychotic acuity and vulnerability to affective instability in his unmedicated state/ will offer pt [place] ER and Risperdal m tabs or Invega; request COM; management plan d/w Nursing in Rounds 03/02/17 DAY UPDATE/EXAM: Pastr 24 hours pt has remained in behavioral control; per Nursing re;port he has continued to be observed with residual thought disorder with typically illogical and over abstract language/ on direct exam he is calm, sad, flattened; thought process more organized than yesterday and he can state his life was "more crabber" in the summer after high school graduation when he work during the summer for a [employer]. He remembers life becoming more "disorderly" (probably psychotic in his attempt to attend college for one month and then leaving. Previously the pt has told me that his TLC consumption had significantly increased at this time. Pt also stated in the session that he was "sad" and wanted to go home and "work for my dad"; meds discussed and pt stated he would comply with trial of Invega and Lamictal. ASSESSMENT/PLAN: residual acuity as referenced/ will begin Invega at 3 mg hs and Lamictal 25 hg hs; no change in management plan. Objective: Vital Signs Temp Pulse Resp BP Pulse Ox 36.3 C 67 16 103/70 99 03/03/17 02:55 03/03/17 02:55 03/03/17 02:55 03/03/17 02:55 03/03/17 02:55 ICD10 Worksheet Patient Problems: Problems Problem Status Onset Acute psychosis Acute
--- NOTE | 2017-03-03 13:39 | SOAPPROG ---
SOAP Progress Note Assessment/Plan: Assessment: Plan: 02/26/17 10:30 DAY UPDATE/EXAM: Nursing reports pt slept 9 hours, c/w cares and meds, appetite good ; was found with female pt in bed moments after she entered his room in pm yesterday; cooperated with staff intervention and verbal limits; female pt known to be paying inappropriate attention to other patients sexually/ on direct exam pt's less guarded and slightly better organized; still with MIRTHA and distractible; reinforced positively @ compliance with cares and meds; states wish to call his parents today and responsive to calling them tomorrow in speaker phone in family meeting. ASSESSMENT/PLAN: early phase improvement since resuming medications 48 hours ago ; residual psychotic acuity/ no change in meds and management plan as d/w Nursing in Rounds 02/27/17 11:00 DAY UPDATE/EXAM: Nursing reports pt slept well, is now not complying with meds this AM after taking meds bid yesterday/ on direct exam he is preoccupied with DC, states he's well, now wants to live in [place] and not go back to family home - immature and entitled thought pattern re-emerging and integrating with more prominent denial and distortion defenses; no overt psychosis elicited; corrective inputs applied but pt resistant; he knows I l/m for parents to call back for update and speaker phone meeting possibly today if c/b in time. Was clear with pt about my thinking that inpt stay extended for mental status restabilization and definitive DC planning ASSESSMENT/PLAN: recompensating but now entitlement and denial more prominent/ c /b from parents pending; no change in meds; anticipate filing for COM; will also explore possibility of probating community treatment post DC 02/28/17 11:00 DAY UPDATE/EXAM: Nursing reports pt continues to resist medication thru three standing doses yesterday and this AM; observable emerging thought disorder and lability; on direct exam and during speaker phone meeting with both parents pt slipping into idiosyncratic and overly-abstract thought pattern indicative of psychosis; also more labile and leaves the office angrily before the end of the family meeting; s/w parents after pt left and clarified the inpt course extension and my again requesting COM. ASSESSMENT/PLAN: now beginning to regress with emerging thought disorder and affective lability as off meds 36 hours/ will continue efforts to influence pt to resume meds compliance but in parallel again request COM; management plan d/ w Nursing in Rounds 03/01/17 08:45 DAY ' UPDATE/EXAM: Nursing reports pt has continued to resist medication thru this AM , has been in behavioral control, partially attending to ADL'S, attending selective groups; evidences thought disorder with illogical thought process and sustained overly abstract and idiosyncratic thought process/ on direct exam he presents as calm, conversant, very concrete and impoverished thought process; does indicated he want to "settle down" and go to groups and will accept different medications as the Abilify and Depakote cause dyspepsia and "nightmares"; I agree to change his meds altho I state his c/o side effects may not be related to the meds - again explain the value of medication in helping thoughts become more reality-based and understandable to him and others. 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 He remembers life becoming more "disorderly" (probably psychotic in his attempt to attend college for one month and then leaving. Previously the pt has told me that his TLC consumption had significantly increased at this time. Pt also stated in the session that he was "sad" and wanted to go home and "work for my dad"; meds discussed and pt stated he would comply with trial of Invega and Lamictal. ASSESSMENT/PLAN: residual acuity as referenced/ will begin Invega at 3 mg hs and Lamictal 25 hg hs; no change in management plan. 03/03/17 08:30 DAY ' UPDATE/EXAM: Nursing reports pt did comply with new meds second shift at HS; remaining in behavioral control/ on direct exam pt is calm, cooperative, conversant; remains with residual thought disorder but + about taking meds and hears that Invega will be updose to 3 mg bid; vague but + about hearing from previous girlfriend who ? wants to reassociate wiht him; responsive to reintegrative support; pt reminded of my leaving service after contact tomorrow ASSESSMENT/PLAN: ? beginning paced recompensation as he begins to comply with medications again/ will increase Invega dosing to 3 mg bid; CP d/w Nursing in Rounds; anticipate speaker phone contact with parents with pt present tomorrow. Objective: Vital Signs Temp Pulse Resp BP Pulse Ox 36.3 C 67 16 103/70 99 03/03/17 02:55 03/03/17 02:55 03/03/17 02:55 03/03/17 02:55 03/03/17 02:55 ICD10 Worksheet Patient Problems: Problems Problem Status Onset Acute psychosis Acute
[2017-03-03] MEDS: OLANZapine DISINTEGR 5 MG TAB PO PRN (19:24)
[2017-03-03] MEDS: LORazepam 0.5 MG TAB PO PRN (19:24)
[2017-03-03] MEDS: PALIPERIDONE 3 MG TAB.ER PO SCH (19:42)
[2017-03-03] MEDS: lamoTRIgine 25 MG TAB PO SCH (19:42)
[2017-03-04] MEDS: PALIPERIDONE 3 MG TAB.ER PO SCH ×2 (08:05→19:56)
[2017-03-04] MEDS: LORazepam 0.5 MG TAB PO PRN ×3 (09:06→19:56)
[2017-03-04] MEDS: OLANZapine DISINTEGR 5 MG TAB PO PRN ×2 (09:06→14:10)
--- NOTE | 2017-03-04 14:22 | SOAPPROG ---
SOAP Progress Note Assessment/Plan: Assessment: Plan: 02/26/17 10:30 DAY UPDATE/EXAM: Nursing reports pt slept 9 hours, c/w cares and meds, appetite good ; was found with female pt in bed moments after she entered his room in pm yesterday; cooperated with staff intervention and verbal limits; female pt known to be paying inappropriate attention to other patients sexually/ on direct exam pt's less guarded and slightly better organized; still with MIRTHA and distractible; reinforced positively @ compliance with cares and meds; states wish to call his parents today and responsive to calling them tomorrow in speaker phone in family meeting. ASSESSMENT/PLAN: early phase improvement since resuming medications 48 hours ago ; residual psychotic acuity/ no change in meds and management plan as d/w Nursing in Rounds 02/27/17 11:00 DAY UPDATE/EXAM: Nursing reports pt slept well, is now not complying with meds this AM after taking meds bid yesterday/ on direct exam he is preoccupied with DC, states he's well, now wants to live in [place] and not go back to family home - immature and entitled thought pattern re-emerging and integrating with more prominent denial and distortion defenses; no overt psychosis elicited; corrective inputs applied but pt resistant; he knows I l/m for parents to call back for update and speaker phone meeting possibly today if c/b in time. Was clear with pt about my thinking that inpt stay extended for mental status restabilization and definitive DC planning ASSESSMENT/PLAN: recompensating but now entitlement and denial more prominent/ c /b from parents pending; no change in meds; anticipate filing for COM; will also explore possibility of probating community treatment post DC 02/28/17 11:00 DAY UPDATE/EXAM: Nursing reports pt continues to resist medication thru three standing doses yesterday and this AM; observable emerging thought disorder and lability; on direct exam and during speaker phone meeting with both parents pt slipping into idiosyncratic and overly-abstract thought pattern indicative of psychosis; also more labile and leaves the office angrily before the end of the family meeting; s/w parents after pt left and clarified the inpt course extension and my again requesting COM. ASSESSMENT/PLAN: now beginning to regress with emerging thought disorder and affective lability as off meds 36 hours/ will continue efforts to influence pt to resume meds compliance but in parallel again request COM; management plan d/ w Nursing in Rounds 03/01/17 08:45 DAY ' UPDATE/EXAM: Nursing reports pt has continued to resist medication thru this AM , has been in behavioral control, partially attending to ADL'S, attending selective groups; evidences thought disorder with illogical thought process and sustained overly abstract and idiosyncratic thought process/ on direct exam he presents as calm, conversant, very concrete and impoverished thought process; does indicated he want to "settle down" and go to groups and will accept different medications as the Abilify and Depakote cause dyspepsia and "nightmares"; I agree to change his meds altho I state his c/o side effects may not be related to the meds - again explain the value of medication in helping thoughts become more reality-based and understandable to him and others. 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 He remembers life becoming more "disorderly" (probably psychotic in his attempt to attend college for one month and then leaving. Previously the pt has told me that his TLC consumption had significantly increased at this time. Pt also stated in the session that he was "sad" and wanted to go home and "work for my dad"; meds discussed and pt stated he would comply with trial of Invega and Lamictal. ASSESSMENT/PLAN: residual acuity as referenced/ will begin Invega at 3 mg hs and Lamictal 25 hg hs; no change in management plan. 03/03/17 08:30 DAY 7/ 30' UPDATE/EXAM: Nursing reports pt did comply with new meds second shift at ; remaining in behavioral control/ on direct exam pt is calm, cooperative, conversant; remains with residual thought disorder but + about taking meds and hears that Invega will be updose to 3 mg bid; vague but + about hearing from previous girlfriend who ? wants to reassociate with him; responsive to reintegrative support; pt reminded of my leaving service after contact tomorrow ASSESSMENT/PLAN: ? beginning paced recompensation as he begins to comply with medications again/ will increase Invega dosing to 3 mg bid; CP d/w Nursing in Rounds; anticipate speaker phone contact with parents with pt present tomorrow. 03/04/17 14:10 DAY UPDATE/EXAM: Nursing reports pt remains in control, c/w cares and meds; selective into groups and observed more preoccupied since long-lost gilrlfriend who's been with patient earlier in his [place] experience has re-surfaced and visited him here on the unit in last several days/ on direct exam pt reiterating he will stay in [place] and not return to family home; tone becomes more defiant as session proceeds; reinforced + about meds compliance and plan on c/b from parents to me; we can engage them on speaker phone if I hear from them today in timely manner; reiterate to pt that I will be leaving service and Dr John will case over in AM. ASSESSMENT/PLAN: paced improvement in thought process organization; girlfriend 's recent contacts have evoked his entitled side in which he's now insisting he' ll stay in [place] and make a life here for himself and her/ no current change in meds/ CP d/w Nursing in Rounds; c/b from parents pending/ no Court date is yet set; will sign over case to Dr. John. Objective: Vital Signs Temp Pulse Resp BP Pulse Ox 36.5 C 78 15 105/64 94 03/04/17 06:00 03/04/17 06:00 03/04/17 06:00 03/04/17 06:00 03/04/17 06:00 ICD10 Worksheet Patient Problems: Problems Problem Status Onset Acute psychosis Acute
[2017-03-04] MEDS: lamoTRIgine 25 MG TAB PO SCH (19:57)
--- NOTE | 2017-03-05 08:16 | SOAPPROG ---
SOAP Progress Note Assessment/Plan: Assessment: Plan: 02/26/17 10:30 DAY UPDATE/EXAM: Nursing reports pt slept 9 hours, c/w cares and meds, appetite good ; was found with female pt in bed moments after she entered his room in pm yesterday; cooperated with staff intervention and verbal limits; female pt known to be paying inappropriate attention to other patients sexually/ on direct exam pt's less guarded and slightly better organized; still with MIRTHA and distractible; reinforced positively @ compliance with cares and meds; states wish to call his parents today and responsive to calling them tomorrow in speaker phone in family meeting. ASSESSMENT/PLAN: early phase improvement since resuming medications 48 hours ago ; residual psychotic acuity/ no change in meds and management plan as d/w Nursing in Rounds 02/27/17 11:00 DAY UPDATE/EXAM: Nursing reports pt slept well, is now not complying with meds this AM after taking meds bid yesterday/ on direct exam he is preoccupied with DC, states he's well, now wants to live in [place] and not go back to family home - immature and entitled thought pattern re-emerging and integrating with more prominent denial and distortion defenses; no overt psychosis elicited; corrective inputs applied but pt resistant; he knows I l/m for parents to call back for update and speaker phone meeting possibly today if c/b in time. Was clear with pt about my thinking that inpt stay extended for mental status restabilization and definitive DC planning ASSESSMENT/PLAN: recompensating but now entitlement and denial more prominent/ c /b from parents pending; no change in meds; anticipate filing for COM; will also explore possibility of probating community treatment post DC 02/28/17 11:00 DAY UPDATE/EXAM: Nursing reports pt continues to resist medication thru three standing doses yesterday and this AM; observable emerging thought disorder and lability; on direct exam and during speaker phone meeting with both parents pt slipping into idiosyncratic and overly-abstract thought pattern indicative of psychosis; also more labile and leaves the office angrily before the end of the family meeting; s/w parents after pt left and clarified the inpt course extension and my again requesting COM. ASSESSMENT/PLAN: now beginning to regress with emerging thought disorder and affective lability as off meds 36 hours/ will continue efforts to influence pt to resume meds compliance but in parallel again request COM; management plan d/ w Nursing in Rounds 03/01/17 08:45 DAY ' UPDATE/EXAM: Nursing reports pt has continued to resist medication thru this AM , has been in behavioral control, partially attending to ADL'S, attending selective groups; evidences thought disorder with illogical thought process and sustained overly abstract and idiosyncratic thought process/ on direct exam he presents as calm, conversant, very concrete and impoverished thought process; does indicated he want to "settle down" and go to groups and will accept different medications as the Abilify and Depakote cause dyspepsia and "nightmares"; I agree to change his meds altho I state his c/o side effects may not be related to the meds - again explain the value of medication in helping thoughts become more reality-based and understandable to him and others. 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 He remembers life becoming more "disorderly" (probably psychotic in his attempt to attend college for one month and then leaving. Previously the pt has told me that his TLC consumption had significantly increased at this time. Pt also stated in the session that he was "sad" and wanted to go home and "work for my dad"; meds discussed and pt stated he would comply with trial of Invega and Lamictal. ASSESSMENT/PLAN: residual acuity as referenced/ will begin Invega at 3 mg hs and Lamictal 25 hg hs; no change in management plan. 03/03/17 08:30 DAY 7/ 30' UPDATE/EXAM: Nursing reports pt did comply with new meds second shift at ; remaining in behavioral control/ on direct exam pt is calm, cooperative, conversant; remains with residual thought disorder but + about taking meds and hears that Invega will be updose to 3 mg bid; vague but + about hearing from previous girlfriend who ? wants to reassociate with him; responsive to reintegrative support; pt reminded of my leaving service after contact tomorrow ASSESSMENT/PLAN: ? beginning paced recompensation as he begins to comply with medications again/ will increase Invega dosing to 3 mg bid; CP d/w Nursing in Rounds; anticipate speaker phone contact with parents with pt present tomorrow. 03/04/17 14:10 DAY UPDATE/EXAM: Nursing reports pt remains in control, c/w cares and meds; selective into groups and observed more preoccupied since long-lost girlfriend who's been with patient earlier in his [place] experience has re-surfaced and visited him here on the unit in last several days/ on direct exam pt reiterating he will stay in [place] and not return to family home; tone becomes more defiant as session proceeds; reinforced + about meds compliance and plan on c/b from parents to me; we can engage them on speaker phone if I hear from them today in timely manner; reiterate to pt that I will be leaving service and Dr John will case over in AM. ASSESSMENT/PLAN: paced improvement in thought process organization; girlfriend 's recent contacts have evoked his entitled side in which he's now insisting he' ll stay in [place] and make a life here for himself and her/ no current change in meds/ CP d/w Nursing in Rounds; c/b from parents pending/ no Court date is yet set for hearing a/w request for COM; will sign over case to Dr. John. Objective: Vital Signs Temp Pulse Resp BP Pulse Ox 36.5 C 76 14 106/64 96 03/05/17 06:00 03/05/17 06:00 03/05/17 06:00 03/05/17 06:00 03/05/17 06:00 ICD10 Worksheet Patient Problems: Problems Problem Status Onset Acute psychosis Acute
[2017-03-05] MEDS: PALIPERIDONE 3 MG TAB.ER PO SCH (08:20)
--- NOTE | 2017-03-05 15:11 | SOAPPROG ---
SOAP Progress Note Assessment/Plan: Assessment: Plan: 03/05/17 15:04 Dr. Simmons has started patient back on medications since he discontinued all meds after last inpatient stay ended after he eloped. At that time he was taking Depakote and Abilify and was relatively stable prior to his elopement. However, during this admission, patient has refused his previous regimen. He did agree to trial of Lamictal and Invega (which he has taken in past). He was hospitalized in [place] after returning to live with his family there. Per Dr. Kapoor's extensive admission note, patient is only ever compliant with medications while in hospital. After he leaves, he does not follow up with community providers and doesn't take his medications. He also has consistent pattern of returning to using drugs, especially THC. Given the nature of his psychosis, it is unlikely that his sxs will remit as long as he continues to use THC and other substances. 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 Suggest family look at placing him in a facility in [place] , or if patient has to remain in [place] d/t terms of his probation, then family should insist upon him entering a residential substance use disorder facility in [place]. Subjective: Patient presents with little change from prior days. He is uncooperative with interview and milieu tx in general. He only attends certain groups, is intrusive with staff and peers, interrupts MD while talking to other patients and frequently asks staff and peers for high fives and fist bumps at inappropriate times. When MD approached patient in group room, he said he didn' t want to talk to MD, but that MD was welcome to join the group and "chill with us." Even though patient is highly distractible, non-linear and disorganized, it is not apparent that this is the result of psychosis. He does not report AH/ VH, there is no evidence of paranoia and patient does not show signs of responding to int/ext stimuli. He is inattentive and hyperactive, but these seem unrelated to psychosis. He has elevated mood, is dancing in halls and singing in group while drawing (art therapy). He denies any SI/HI. Objective: Vital Signs Temp Pulse Resp BP Pulse Ox 36.5 C 76 14 106/64 96 03/05/17 06:00 03/05/17 06:00 03/05/17 06:00 03/05/17 06:00 03/05/17 06:00 MSE Uncooperative, pleasant, disorganized, non-linear. Affect: elevated Mood: "Great" TP: tangential TC: denies AH/VH, denies SI/HI Insight/Judgment: Poor/ Poor - Time Spent With Patient Time Spent With Patient: 15' - Pending Discharge Pending Discharge Within 24 Hours: No Pending Discharge Within 48 Hours: No ICD10 Worksheet Patient Problems: Problems Problem Status Onset Acute psychosis Acute Cannabis use disorder, severe, in controlled environment, dependence Acute - ICD10 Problem Qualifiers (1) Cannabis use disorder, severe, in controlled environment, dependence
[2017-03-05] MEDS: lamoTRIgine 25 MG TAB PO SCH (20:19)
[2017-03-05] MEDS ORDERED: PALIPERIDONE 3 MG TAB.ER PO ONE (21:00)
[2017-03-06] MEDS: PALIPERIDONE 3 MG TAB.ER PO SCH ×2 (08:10→13:43)
--- NOTE | 2017-03-06 13:00 | SOAPPROG ---
SOAP Progress Note Assessment/Plan: Assessment: Plan: 03/05/17 15:04 Dr. Simmons has started patient back on medications since he discontinued all meds after last inpatient stay ended after he eloped. At that time he was taking Depakote and Abilify and was relatively stable prior to his elopement. However, during this admission, patient has refused his previous regimen. He did agree to trial of Lamictal and Invega (which he has taken in past). He was hospitalized in [place] after returning to live with his family there. Per Dr. Kapoor's extensive admission note, patient is only ever compliant with medications while in hospital. After he leaves, he does not follow up with community providers and doesn't take his medications. He also has consistent pattern of returning to using drugs, especially THC. Given the nature of his psychosis, it is unlikely that his sxs will remit as long as he continues to use THC and other substances. 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 Suggest family look at placing him in a facility in [place] , or if patient has to remain in [place] d/t terms of his probation, then family should insist upon him entering a residential substance use disorder facility in [place]. 03/06/17 12:57 Plan: 1. Patient refuses to continue on Invega 2. Patient states he doesn't want to return to [place] to stay with family 3. MD strongly encouraged [place] to enter [place] for substance [place] disorder, and presented several options including CD-IOP, residential or 1:1 with [facility] or similar. Patient initially said he would consider sober living houses, but then changed his mind and said, "I don't want to be a prisoner." He says he wants to live with friend Naz and will schedule his own appt with therapist prior to d/c. 4. Will d/c Invega as pt refuses and he is not actively psychotic, shows no s/s of psychosis, no AH/VH, no paranoia, no delusions, and denies any thoughts, plan or intent to harm himself or anyone else. 5. Likely d/c on Tuesday. Have requested care program director contact patient's family in [place] and see if they would like to come to [place] to provide support to patient and help with planning for aftercare. Subjective: Met with patient with RN present and discussed case with staff. MD spent at least 30 min reviewing events leading up to patient's 2 recent admissions, and attempted to make the point that patient's drug use was leading to serious mental health problems and grave disability on patient's part. Patient adamantly denied that he was ever gravely disabled and said he was just "not wearing a shirt and shoes" and was "trying to get help from a friend" who took him to ED. Patient says it was "all a mistake" and he should "never have trusted my friend" and thinks that he will just "avoid all mental health providers" in the future b/c "being here is clearly not helping me." He initially admitted to MD that drugs and alcohol were problems for him and he thought it might be a good idea to move into a "sober living situation." When MD talked with patient further about SA tx and answered questions, patient said he just wanted to be sure he could "come and go" from sober living home. MD encouraged patient to contact some sober living houses and do a phone screen to get more information. Patient eventually told MD he didn't want treatment for chemical dependency b/c "drugs aren't a problem for me." He also decided he'd rather live "with my friend Naz" instead of in sober living house. He said he wanted to get off all psych meds b/c he was "addicted" to Invega and didn't like the way it made him feel. Patient does not show any s/s of psychosis. He denies any AH/VH, paranoia and delusions. He is not responding to int/ext stimuli. He shows no s/s of depression, anxiety or other mood related problems. He denies any SI/HI. Objective: Vital Signs Temp Pulse Resp BP Pulse Ox 36.4 C 81 14 110/86 H 97 03/06/17 06:00 03/06/17 06:00 03/06/17 06:00 03/06/17 06:00 03/06/17 06:00 - Time Spent With Patient Time Spent With Patient: 30 min ICD10 Worksheet Patient Problems: Problems Problem Status Onset Acute psychosis Acute Cannabis use disorder, severe, in controlled environment, dependence Acute - ICD10 Problem Qualifiers (1) Cannabis use disorder, severe, in controlled environment, dependence
[2017-03-06] MEDS: lamoTRIgine 25 MG TAB PO SCH (22:00)
[2017-03-07 04:56] VITALS: RESP 16; O2SAT 98
--- NOTE | 2017-03-07 13:36 | SOAPPROG ---
SOAP Progress Note Assessment/Plan: Assessment: Plan: 03/05/17 15:04 Dr. Simmons has started patient back on medications since he discontinued all meds after last inpatient stay ended after he eloped. At that time he was taking Depakote and Abilify and was relatively stable prior to his elopement. However, during this admission, patient has refused his previous regimen. He did agree to trial of Lamictal and Invega (which he has taken in past). He was hospitalized in [place] after returning to live with his family there. Per Dr. Kapoor's extensive admission note, patient is only ever compliant with medications while in hospital. After he leaves, he does not follow up with community providers and doesn't take his medications. He also has consistent pattern of returning to using drugs, especially THC. Given the nature of his psychosis, it is unlikely that his sxs will remit as long as he continues to use THC and other substances. Rather than court order psych medications for patient, would recommend residential substance use treatment as the first step to resolving the underlying cause of his recurrent psychosis as well as a necessary initial step to ensuring manager intermediate compliance and benefit from pharmacologic treatments. Suggest family look at placing him in a facility in [place] , or if patient has to remain in [place] d/t terms of his probation, then family should insist upon him entering a residential substance use disorder facility in [place]. 03/06/17 12:57 Plan: 1. Patient refuses to continue on Invega 2. Patient states he doesn't want to return to [place] to stay with family 3. MD strongly encouraged patient to enter dc for substance use disorder, and presented several options including CD-IOP, residential or 1:1 with [facility] or similar. Patient initially said he would consider sober living houses, but then changed his mind and said, "I don't want to be a prisoner." He says he wants to live with friend Naz and will schedule his own appt with therapist prior to d/c. 4. Will d/c Invega as pt refuses and he is not actively psychotic, shows no s/s of psychosis, no AH/VH, no paranoia, no delusions, and denies any thoughts, plan or intent to harm himself or anyone else. 5. Likely d/c on Tuesday. Have requested healthcare specialist contact patient's family in [place] and see if they would like to come to [place] to provide support to patient and help with planning for aftercare. 03/07/17 13:32 Plan: 1. [facility] is planning to send a care package [employer] overnight with clothes and shoes for patient before he leaves hospital. 2. Patient has decided he will go stay with girlfriend, Naz. [facility] has been sending Naz money to pay her phone bill, but she has used it to buy ETOH and THC. MD and CC advised patient this is not a good environment for him if he plans to stay sober. 3. Patient has appointment to see previous psych MD after discharge. 4. Patient says he wants to attend day program at [facility] [place] which is sober space where he can attend classes, do meditation and receive support. 5. FOC wants patient to return to [place] and get treatment there, but patient says he prefers to stay in [place] despite warnings from MD and CC that he is likely to relapse and get readmitted to hospital if he doesn't have appropriate support and sufficient treatment resources. Patient says, "I'll be fine." 6. D/c tomorrow. 03/07/17 13:44 Subjective: MD met with patient and discussed with staff. MD and CC spoke at length with FOC by phone. His FOC says he is exasperated by patient's refusal to get treatment and always making the "same mistakes" over and over again. MD impressed on [facility] significance of patient's substance use disorder, and explained that it will be very difficult to treat patient for any underlying or co-morbid mood or thought issues as long as he continues to use recreational drugs. FOC said he understood this, but that he has "no way to control" his son and patient "won't get help" for his drug use. Family has been enabling patient' s behavior. [facility] reports patient's [facility] will "buy him whatever he wants" and has allowed patient to move from state to state (he lived in [place] and on IMVU in [place]) rather than get sustained treatment for SA and mental health issues. [facility] says he wired patient's GF, Naz, money to pay bills, but she spent it on ETOH and THC. [facility] makes excuses saying, "she's a good kid" and "they 're both good kids, they're just young" and "they make mistakes." ELEONORA would like patient to return to [place] and enter treatment there, but says there's "nothing else I can do." CC helped ELEONORA realize there are other steps he could take by talking to patient's parachute/combatant diver officer and pursuing emergency guardianship, but both of these will take time. FOC said he would contact PO and consider these options if necessary. Patient told MD he has come up with a plan as MD requested. He will stay with Naz and attend day program at [facility]. He also agreed to make an appointment with his outpatient provider. He denies any AH/VH, no evidence of psychosis. He denies any thoughts, plans, or intent to hurt himself or anyone else. Objective: Vital Signs Temp Pulse Resp BP Pulse Ox 36.6 C 61 16 124/73 H 98 03/07/17 04:56 03/07/17 04:56 03/07/17 04:56 03/07/17 04:56 03/07/17 04:56 MSE: Disheveled, has showered and dressed in street clothes, cooperative, polite. Affect: Bright Mood: "Good" TP: Linear, goal-directed TC: Denies AH/VH , no evidence of psychosis, denies SI/HI Insight/Judgment: Poor/Poor - Time Spent With Patient Time Spent With Patient: 25" - Pending Discharge Pending Discharge Within 24 Hours: Yes Pending Discharge Date: 03/08/17 ([facility] is sending care package with clothes for patient will arrive by 10am on day of discharge) Pending Discharge Time: 15:00 ICD10 Worksheet Patient Problems: Problems Problem Status Onset Acute psychosis Acute Cannabis use disorder, severe, in controlled environment, dependence Acute - ICD10 Problem Qualifiers (1) Cannabis use disorder, severe, in controlled environment, dependence
[2017-03-07] MEDS: PALIPERIDONE 3 MG TAB.ER PO SCH (13:59)
[2017-03-07] MEDS: lamoTRIgine 25 MG TAB PO SCH (21:17)
[2017-03-08 06:39] VITALS: BP 122/74; PULSE 64; TEMP 97.6
--- NOTE | 2017-03-09 00:08 | BDS ---
[f rep st] BEHAVIORAL HEALTH DISCHARGE SUMMARY REASON FOR ADMISSION: This is a 21-year-old single male who presented to the emergency [facility], had been living on the [address], and had been found by a member of the nursing staff at the local [facility] after having eloped from the inpatient unit on [address] [place] [address] on 02/20/2017. [facility], he appeared to be confused and disorganized but he was cooperative with staff and he was not appearing psychotic in the ED. The patient has a significant recent psychiatric history starting in May 2016 when he was arrested in [place] for defecating in public. He presented acutely psychotic at that time, was jailed briefly, bonded out and directed t o have mandated psychiatric assessment. Before this assessment could take place, his father arrived from [place] and took the patient home to the community where they live. [facility] [place] due to being disorganized and confused. He was abusing mood altering substances at the time including most frequently marijuana but also the herbal hallucinogen, kava. Supposedly he was stabilized on the inpatient Psych unit in [place] on Risperdal, Invega, Invega Guerrero stenna and Depakote. He was discharged and went to live with his parents. Patient rejected outpatient followup treatment and stopped all of his medications. He continued to live with his parents for several months during the fall and winter of 2015. 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 Did not require any further mental health treatment or inpatient treatment. Patient returned to [facility] in September and began living on the street, homeless, couch surfing when he could and began u sing heavily marijuana on a daily basis as well as kava. He brought himself into the emergency depa rtment at [facility] on 02/06/2017 and he was placed on a mental health hold because he was acutely psychotic as well as intoxicated on marijuana. He was kept on the inpatient unit fo r several weeks at that time and stabilized, according to his prior psychiatrist, Dr. Kapoor, on Dep akote and Abilify. ADMISSION DIAGNOSES: From Dr. Kapoor on 02/25/2017: 1. Schizoaffective disorder exacerbation. 2. 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 5. Cannabis use disorder. PHYSICAL EXAMINATION: Physical exam was done in the [facility] ED on 02/25/2017 by Michael Doe. GENERAL: Revealed a disheveled, thin man. Nothing else in the physical examination was significant for contributory. DIAGNOSTIC DATA: Admission labs were also done in the ED. Patient had a sodium of 142, potassium 3 .9, chloride 104, BUN was 19 and creatinine 1.0. White cell count was 9.3, platelets 190, hemoglobi n 15.3, hematocrit 43.1. HOSPITAL COURSE: During this hospitalization, the discharging psychiatrist, Dr. John, picked up cov erage of this case on 03/05/2017 after patient had been previously treated for a week by Dr. Kapoor. Dr. Kapoor had started the patient back on medications since he had discontinued all medications a fter his last inpatient stay ended in an elopement. At that time he was taking Depakote and Abilify and was relatively stable prior to his elopement. However, during this admission patient has refus ed his previous regimen. He did agree to a trial of Lamictal and Invega. He was hospitalized in [facility]. Per Dr. Kapoor's extensive admission note, the patient is only ever compliant with medicati ons while in the hospital. After he leaves, he does not follow up with community providers and does not take his medication. He also has a consistent pattern of returning to using drugs, especially cannabis. Given the nature of his psychosis, it is unlikely that his symptoms will remit as long as he continues to use THC and other substances. Rather than court-ordered medications for this patient, would recommend residential substance abuse treatment as the first step to resolving the underlying cause of his recurrent psychosis as well as a necessary initial step to ensuring long-term compliance and benefit from pharmacologic treatments. Suggest family look at placing him in a facility in [place] or, if the patient is to remain in [facility] due to terms of his probation, then family should assist him upon entering a residential subs tance use disorder facility in the state of [place]. After initially agreeing to take p.o. Invega, the patient began refusing his Invega on 03/06/2017. Patient stated he does not want to return to [place] to stay with his family. MD strongly encourag ed patient to enter treatment for substance use disorder and presented several options including CD IOP, residential or 1-on-1 treatment with a certified addictions counselor or similar. The patient initially said he would consider Sober Living housing, then changed his mind and said, "I don't want to be a prisoner." He says he wants to live with his girlfriend, Naz, and will schedule his ow n appointments with a therapist prior to discharge. This psychiatrist discontinued the patient's Invega as he said he would refuse to take it because he did not want to be "addicted to any medicine." Patient also said he did not like the way the antip sychotic meds made him feel. His presentation, when the psychiatrist examined him on 03/06/2017 and subsequent days, he presented as not actively psychotic. He showed no signs or symptoms of psychos is. He denied auditory and visual hallucinations. There was no evidence of paranoia, no evidence o f delusions, no evidence that the patient was responding to internal or external stimuli. The patie nt denied any thoughts, plans or intents to harm himself or anyone else. Prior to discharge, MD and janitor caretaker spoke with the patient's father by phone on 03/07/2017. Father said that he was exasperated because the patient "always makes the same mistakes" over and o dieter again. MD impressed upon father the significance of the patient's substance use disorder and ex plained that it would be very difficult to treat the patient for any underlying or comorbid mood or thought disorders as long as he continues to use recreational drugs. Father said he understood this but that he has "no way to control" his son and the patient "won't get help" for his drug use. Thierno hightower has been enabling the patient's behavior. Father reports the grandmother will "buy him whatever he wants" and has allowed the patient to move from state to state rather than get sustained treatme nt for substance use and mental health issues. Father says he wired the patient's girlfriend, Srini mohan, money to pay bills but she spent it on alcohol and cannabis. Father makes excuses, saying, "She 's a good kid." "They are both good kids, they are just young." "They make mistakes." Father would like the patient to return to [place] and enter treatment there but says, "There is no thing else I can do." household coordinator helped father realize there are other steps he could take by talking to the patient's donor relations officer and pursuing emergency guardianship but both of these wi ll take time. Father said he would contact the PO and consider these options if necessary. Patient told MD he has come up with a plan, as MD requested. He will stay with his girlfriend, Yesica lee, and attend a day program at [facility]. He also agreed to make an appointment with his outpati ent provider. He denies any auditory or visual hallucinations and there is no evidence of psychosis . He denied any SI/HI prior to discharge. CONDITION ON DISCHARGE: Patient is stable. His affect is euthymic and his thought content is remar kable for no signs or symptoms of psychosis, depression, anxiety or any other mood related symptoms and he continues to deny any thoughts, plans or intents to harm himself or anyone else. DISCHARGE MEDICATIONS: Patient is not being discharged on any medications because he refuses to cesar e meds. DISCHARGE DIAGNOSES: 1. Substance induced psychotic disorder, resolved. 2. Cannabis use disorder, severe. 3. Hallucinogen use disorder, severe. 4. Alcohol use disorder, moderate. 5. Patient also has significant psychosocial issues including homelessness, unstable support system , currently on probation for legal charges in May of 2016. Patient has limited financial suppor t and is unemployed and refuses to return home to a more supportive environment where his family wou ld be willing to help him get back on his feet and into long-term treatment. DISPOSITION: Patient left hospital with his girlfriend, Naz. FOLLOW UP: Patient has an appointment scheduled with [facility] wisam alfred 03/09/2017 at 8:45 AM. He said, "I am going to be there first thing in the morning." Patient als o plans to go to [facility] known [facility], where he can participate in their da y treatment program. LEGAL COURSE: The patient's short term certification was dropped at time of discharge. /[id number]/MODL
== END 2017-03-08 13:17 | disposition home or self-care (01) | DRG 885 ==
LOC: BBEH 02-25 00:35
PROVIDERS: ADMIT Psychiatry & Neurology Behavioral Neurology & Neuropsychiatry; ATTEND Psychiatry & Neurology Behavioral Neurology & Neuropsychiatry
DX: F25.9 Schizoaffective disorder, unspecified (principal); F12.959 Cannabis use, unspecified with psychotic disorder, unspecified; F16.959 Hallucinogen use, unspecified with hallucinogen-induced psychotic disorder, unspecified; Z72.0 Tobacco use
CPT/HCPCS: 80305; G0480

== ENCOUNTER 2017-03-12 02:40 | Inpatient (IN) | payer BC ==
--- NOTE | 2017-03-12 02:52 | EDPHY ---
H & P Source: Patient, EMS - Medical/Surgical History Hx Asthma: No Hx Chronic Respiratory Disease: No Hx Diabetes: No Hx Cardiac Disease: No Hx Renal Disease: No Hx Cirrhosis: No Hx Alcoholism: No Hx HIV/AIDS: No Hx Splenectomy or Spleen Trauma: No Other PMH: denies - Family History Significant Family History: No pertinent family hx - Social History Smoking Status: Light smoker Alcohol Use: Heavy Drug Use: Other Time Seen by Provider: 03/12/17 02:50 HPI/ROS: CHIEF COMPLAINT: Schizoaffective HISTORY OF PRESENT ILLNESS: The patient is a 21-year-old man with a history of schizoaffective disorder who was intoxicated and earlier today and taken [facility]. He was evaluated there by mental health and found to be decompensating. He was admitted to the hospital a few weeks ago for similar reasons. He states that he has not been taking his medications. He denies recent drug use but according to the records in the past has heavily used marijuana and Kava. He denies suicidal Or homicidal thoughts. REVIEW OF SYSTEMS: Unable to obtain secondary to condition EXAM: GENERAL: Thin, disheveled HEAD: Atraumatic, normocephalic. EYES: Pupils equal round and reactive to light, extraocular movements intact, sclera anicteric, conjunctiva are normal. ENT: nares patent, oropharynx clear without exudates. Moist mucous membranes. NECK: Normal range of motion, supple without lymphadenopathy or JVD. LUNGS: Breath sounds clear to auscultation bilaterally and equal. No wheezes rales or rhonchi. HEART: Regular rate and rhythm without murmurs, rubs or gallops. ABDOMEN: Soft, nontender, normoactive bowel sounds. No guarding, no rebound. No masses appreciated. BACK: no spinal tenderness, step-offs or deformities EXTREMITIES: Normal range of motion, no pitting or edema. No clubbing or cyanosis. NEUROLOGICAL: Cranial nerves II through XII grossly intact. Delayed speech, normal gait. 5/5 strength, normal movement in all extremities, normal sensation PSYCH: Confused. Seems to be responding to internal stimuli SKIN: Warm, dry, normal turgor, no visible rashes or lesions. (Michael Doe) Constitutional: Initial Vital Signs Temperature (C) 36.5 C 03/12/17 02:47 Heart Rate 71 03/12/17 02:47 Respiratory Rate 16 03/12/17 02:47 Blood Pressure 117/71 03/12/17 02:47 O2 Sat (%) 96 03/12/17 02:47 O2 Delivery Mode Room Air Allergies/Adverse Reactions: acetaminophen [From Tylenol] Allergy (Verified 03/12/17 02:54) methamphetamine Allergy (Verified 03/12/17 03:43) aleeve Allergy (Uncoded 03/12/17 02:54) hot dogs Allergy (Uncoded 03/12/17 03:43) Medical Decision Making ED Course/Re-evaluation: I took over care of this patient at 7:00 a.m.. This patient is on an M1 hold. The patient is here for schizophrenia acute psychosis. He is awaiting admission. He has a history of being recently admitted to [address] [place] [address] [place] [address]. 3:00 p.m.. The patient still awaits disposition. Care turned over to Dr. Luz Roberts. (Rodrigo Manzanares) 4:00 a.m. patient medically clear for psychiatric evaluation. 10:00 p.m. care transferred to Dr. Joe Carlton. He has been evaluated and we are awaiting placement. (Michael Doe) Differential Diagnosis: Partial list of the Differential diagnosis considered include but were not limited to; psychosis, schizoaffective disorder, bipolar, substance abuse and although unlikely based on the history and physical exam, I also considered head injury, infection. (Michael Doe) Other Provider: 5:00 p.m.: The patient was signed out to me by Dr. Manzanares at shift change. Patient is awaiting disposition. 5:45 p.m.: I went to evaluate the patient. He is currently undoing mental health evaluation. 7:45 p.m.: The patient was seen by Mental Health. He will be admitted at [address] [place] [address] Schumacher. (Luz Roberts) - Data Points Laboratory Results: Laboratory Results 03/12/17 03:03 03/12/17 03:03 Medications Given: Discontinued Medications Lamotrigine (Lamictal) 25 mg PO EDNOW ONE Stop: 03/13/17 18:01 Last Admin: 03/13/17 18:22 Dose: 25 mg Lorazepam (Ativan) 1 mg PO EDNOW ONE Stop: 03/12/17 14:23 Last Admin: 03/12/17 14:31 Dose: Not Given Lorazepam (Ativan) 1 mg PO EDNOW ONE Stop: 03/12/17 18:25 Last Admin: 03/12/17 18:27 Dose: 1 mg Lorazepam (Ativan) 1 mg PO EDNOW ONE Stop: 03/13/17 16:13 Last Admin: 03/13/17 16:14 Dose: 1 mg Lorazepam (Ativan) 0.5 - 1 mg PO Q6HRS PRN PRN Reason: Anxiety, Able to Take PO Stop: 09/09/17 21:26 Last Admin: 03/14/17 17:11 Dose: 1 mg Olanzapine (Zyprexa Zydis) 10 mg PO EDNOW ONE Stop: 03/12/17 21:52 Last Admin: 03/12/17 21:55 Dose: 10 mg Olanzapine (Olanzapine) 5 mg PO Q4 PRN PRN Reason: AGITATION Stop: 09/09/17 21:28 Last Admin: 03/14/17 10:29 Dose: 5 mg Paliperidone (Invega) 3 mg PO DAILY [facility] Stop: 09/09/17 17:59 Last Admin: 03/13/17 18:39 Dose: Not Given Paliperidone (Invega) 3 mg PO EDNOW ONE Stop: 03/13/17 18:31 Last Admin: 03/13/17 18:22 Dose: 3 mg Paliperidone (Invega) 3 mg PO BID [facility] Stop: 09/10/17 08:59 Last Admin: 03/14/17 09:04 Dose: 3 mg Departure - Departure Disposition: [facility] IP Clinical Impression: Acute psychosis, Cannabis use disorder, severe, in controlled environment, dependence Condition: Fair
[2017-03-12 03:26] LABS: % IMMATURE GRANULYOCYTES 0.1 % (0.0-1.1); ABSOLUTE IMMATURE GRANULOCYTES 0.01 10^3/uL (0.00-0.10); ADD DIFF? NO; ADD MORPH? NO; ADD SCAN? NO; ATYPICAL LYMPHOCYTE FLAG 30 (0-99); FRAGMENT RBC FLAG 0 (0-99); HEMOGLOBIN 14.3 g/dL (13.7-17.5); LEFT SHIFT FLG 0 (0-99); LIPEMIA HEMOLYSIS FLAG 90 (0-99); MEAN CELL HEMOGLOBIN 30.4 pg (27.9-34.1); MEAN CELL HEMOGLOBIN CONCENTR. 34.9 g/dL (32.4-36.7); MEAN CELL VOLUME 87.2 fL (81.5-99.8); MEAN PLATELET VOLUME 9.9 fL (8.7-11.7); PLATELET CLUMPS FLAG 0 (0-99); PLATELET COUNT 202 10^3/uL (150-400); RED CELL DISTRIBUTION WIDTH 13.4 % (11.5-15.2)
[2017-03-12 03:49] LABS: ANION GAP 15 mEq/L (8-16); CALCIUM 9.5 mg/dL (8.5-10.4); CARBON DIOXIDE 22 mEq/l (22-31); CHLORIDE 109 mEq/L (97-110); CREATININE 0.7 mg/dL (0.7-1.3); ETHANOL SERUM < 10 mg/dL (0-10); GLOMERULAR FILTRATION RATE > 60; GLUCOSE 93 mg/dL (70-100); POTASSIUM 4.1 mEq/L (3.5-5.2); SODIUM 146 mEq/L (134-144)
[2017-03-12] MEDS ORDERED: LORazepam 1 MG TAB PO ONE ×2 (14:22→18:24)
[2017-03-12] MEDS ORDERED: OLANZapine DISINTEGR 10 MG TAB PO ONE (21:51)
[2017-03-13 09:29] VITALS: RESP 16
[2017-03-13] MEDS ORDERED: LORazepam 1 MG TAB PO ONE (16:12)
[2017-03-13] MEDS ORDERED: LORazepam 1 MG TAB ONE (16:13)
[2017-03-13] MEDS ORDERED: PALIPERIDONE 3 MG TAB.ER PO SCH (18:00)
[2017-03-13] MEDS ORDERED: lamoTRIgine 25 MG TAB PO ONE (18:00)
[2017-03-13] MEDS ORDERED: PALIPERIDONE 3 MG TAB.ER PO ONE (18:30)
[2017-03-13] MEDS ORDERED: MAG HYDROX/AL HYDROX/SIMETH 30 ML UDCUP PO PRN (21:27)
[2017-03-13] MEDS ORDERED: MAGNESIUM HYDROXIDE 30 ML UDCUP PO PRN (21:27)
[2017-03-13] MEDS: LORazepam 0.5 MG TAB PO PRN ×2 (22:37→22:46)
[2017-03-13] MEDS: OLANZapine 5 MG TAB PO PRN (22:47)
[2017-03-14] MEDS ORDERED: PALIPERIDONE 3 MG TAB.ER PO SCH (09:00)
[2017-03-14] MEDS: LORazepam 0.5 MG TAB PO PRN ×2 (10:29→17:11)
[2017-03-14] MEDS: OLANZapine 5 MG TAB PO PRN (10:29)
--- NOTE | 2017-03-14 15:29 | BCON ---
[f rep ] BEHAVIORAL HEALTH CONSULTATION INTERNAL MEDICINE CONSULTATION DATE OF CONSULTATION: 03/14/2017 REFERRING PHYSICIAN: Dr. Nicole REASON FOR REFERRAL: Medical clearance for inpatient behavioral health stay. HISTORY OF PRESENT ILLNESS: This patient was brought to the emergency room yesterday from the [facility]. He had been brought there because he had been found intoxicated. At the [facility], a mental health team evaluated him and found him decompensating psychiatrically. He had a very recent discharge from inpatient psychiatry, where he had been treated for psychosis. He is currently without acute complaint. He received lorazepam approximately 2 to 3 hours ago and he is mostly somnolent. PAST MEDICAL HISTORY: Schizoaffective disorder. PAST SURGICAL HISTORY: He has not had any surgeries. ALLERGIES: Listed to acetaminophen, methamphetamine and naproxen. MEDICATIONS: Unclear; the recent discharge summary reports that he was discharged on no medications but per the emergency department note and his chart summary, he was prescribed lorazepam. SOCIAL HISTORY: He has a girlfriend with whom he lives. He is a smoker. He is a user of marijuana and kava. FAMILY HISTORY: Noncontributory. REVIEW OF SYSTEMS: Limited due to patient's somnolence. He denies pain, cough , dyspnea, fevers, chills or recent weight change. PHYSICAL EXAMINATION: GENERAL: This is a well-nourished, well-developed man, who appears his chronologic age, with long hair, unkempt, arouses to voice and then returns to sleep. Otherwise cooperative and in no acute distress. HEENT: Extraocular movements are intact. Mucous membranes are moist. NECK: Supple. HEART: Cardiac exam was not completed due to lack of cooperation. RESPIRATORY: He is not tachypneic and is using no accessory muscles. ABDOMEN: Grossly benign. EXTREMITIES: There is no cyanosis, clubbing, or edema. NEUROLOGIC: He is somnolent. He alerts to voice, then he returns to sleep. He moves all extremities. Cranial nerves 2 to 12 are grossly intact to a very gross exam. LABORATORY STUDIES: Laboratory studies drawn in the emergency department: CBC was overall within normal limits with a slight elevation of absolute monocytes of no clinical significance. Serum chemistry showed a mildly elevated sodium at 146 and otherwise renal function and electrolytes were within normal limits. Toxicology screen in the serum was negative for ethyl alcohol, and the urine was negative for any substances of abuse. ASSESSMENT AND RECOMMENDATIONS: 1. Somnolence, likely due to recent medication with lorazepam. Expect clearing of his mental status. 2. Tobacco dependence. Would advise smoking cessation. 3. Polysubstance abuse. He might benefit from a specific substance abuse treatment program. I see no medical contraindications to this patient's continued stay in the inpatient behavioral health unit or to any psychiatric medications or procedures. Thank you very much for including me in the care of this patient and please do not hesitate to contact me or the hospitalist service should there be need for further medical evaluation. /[id number]/MODL MTDD
--- NOTE | 2017-03-14 16:34 | BAPA ---
[f rep st] ADMISSION PSYCHIATRIC ASSESSMENT DATE OF SERVICE: 03/14/2017 CHIEF COMPLAINT: "My girlfriend was worried about me. One of her roommates said I couldn't stay th ere. I just want to get home." HISTORY OF PRESENT ILLNESS: This is a 21-year-old male currently living with his girlfriend. The p paulie presented to the ED after an HYDROMETER TESTER in the [facility] walk-in clinic put the patient on an M1 hold. Th e patient was at the [facility] due to intoxication, however, the patient tested negative for all substance s other than THC. The patient has a history of abusing marijuana as well as kava. After the patien t was tested by the [facility] and declared sober, an [facility] clinician believed the patient continued to decom pensate into a gravely disabled state. The patient is not currently taking any medications. Accord ing to [facility], the patient's girlfriend called the police for a welfare check because the patient had n ot taken his meds since being discharged from and was "out of it" and psychotic. Per the [facility] HYDROMETER TESTER , the patient denied suicidal ideation, and denied any prior suicide attempts. The patient denied a ny auditory or visual hallucinations. The patient was recently admitted on 2 separate occasions to [address] [place] [address], once on 02/06/2017. After several weeks of treatment, the patient eloped. The patient was readmitted on 02/26/2017 with a diagnosis of schizoaffective disorder and substance-induced psychos is. However. During his stay on the unit, the patient quickly cleared. He no longer showed signs o f altered mental state. He was not confused or disoriented. He refused to continue on psychiatric medications. He was taken off his psychiatric medications, and he continued to show no signs or sym ptoms or evidence of psychosis. He was not paranoid or delusional. He did not endorse any auditory or visual hallucinations. He did not endorse thoughts, plans, or intents to hurt himself or anyone else during his hospitalization. The MD at that time stated in his note that rather than court-ord ered medications, would recommend residential substance abuse treatment as the 1st step to resolving the underlying cause of his recurrent psychosis as well as a necessary initial step to ensuring gloria g-term compliance and benefit from pharmacologic treatments. suggested that the family look at p lacing him in a facility in [place], or if the patient is to remain on [place] due to terms of his probation, then family should assist him upon entering into a residential substance use disorder fa cility in this state. Prior to his last discharge on 03/08/2017, MD and Fiberglass Laminator spoke with the patient's father by phone. Father said that he was exasperated because the patient "always yanelis es the same mistakes over and over again." MD impressed upon the father the significance of the river swann's substance use disorder and explained that it would be very difficult to treat the patient for any underlying or comorbid mood or thought disorders as long as he continues to use recreational dr nelson. Father said he understood but that he has "no way to control" his son and the patient "won't g et help for his drug use." Family has been enabling the patient's behavior. Father reports the gra ndmother will "buy him whatever he wants" and has allowed the patient to move from state to state ra ther than get sustained treatment for substance use and mental health issues. Father said he wired the patient's girlfriend money to pay bills, but that she spent it on alcohol and cannabis. Father makes excuses saying "she is a good kid" and "they are both good kids, they are just young." PAST PSYCHIATRIC HISTORY: See HPI for patient's most recent psychiatric hospitalizations on the [facility] inpatient unit on [address] [place] [address] on 02/06/2017 and subsequent admission on 02/26/2017. Most recent discharged on 03/08/2017. The patient was given an intake referral [facility]. The patient states that he never went to that appointment, and the patient had previously expres sed to his inpatient psychiatrist that he was not interested in getting any type of followup treatme nt and that he was not interested in getting substance use treatment specifically, but that he also did not intend to take any psychotropic medications after he was discharged from the hospital. The patient does have a prior history of psychiatric hospitalizations in [place]. He was stabilized on a psych unit in [place] on Risperdal, Invega, Systane, and Depakote. He was discharged and went t o live with his parents. That was in the fall of 2015. That is the most recent prior psychiatric h ospitalization, prior to his stay at [facility]. ALLERGIES: The patient states that he has an allergy to acetaminophen, methamphetamine, and Aleve. CURRENT MEDICATIONS: The patient is not currently taking any outpatient medications. PAST MEDICAL HISTORY: The patient denies any medical issues. He has no prior history of medical co nditions or surgical treatments. SOCIAL HISTORY: The patient was discharged from [address] [place] [address] on 03/08/2017. He went to live with his gi rlfriend, Naz, and her roommates. The patient says that Naz's roommates did not want him li ving there, and he said that Naz told him that she did not want him to stay there any longer. W noris asked what the problems were, the patient says he does not know. He said that Naz never shanda d her why she did not want him staying there. It was his girlfriend Naz who called 911 when the patient was acting bizarre and erratic while he was high. She states that he was acting confused a nd unable to care for himself and that he was "out of it." The patient's parents live in [place], outside of [place], and they had offered to come to [place] and pick the patient up and take hi m back to [place] after his last discharge, but the patient wanted to stay in [place] so he could get cheep pot. The parents were interested in getting the patient into long-term care, but the benito ent stated that he was not interested, he did think he had a drug or alcohol problem and did not wan t to be in any type of mental health treatment. SUBSTANCE USE HISTORY: As previously reported, the patient smokes marijuana on a daily basis. He a lso uses kava and does admit to drinking alcohol on occasion. FAMILY HISTORY: The patient denies any family history of mental illness. There is no report of any family history of substance use disorders. ADMISSION LABORATORY: White cell count was 8.5, hemoglobin was 14.3, hematocrit was 41, platelet co unt was 202. Chem Panel: Sodium was 146, potassium 4.1, chloride 109, BUN 18, creatinine 0.7, gluc ose was 93. Urine tox screen was negative for all drugs of abuse, although patient had a urine tox screen that was done at the [facility], which showed that he was positive for marijuana. The patient's blo od alcohol level was less than 10 in the [facility] ED. MENTAL STATUS EXAMINATION: The patient presents very similar to his last admission. He is a thin-a ppearing male with long hair down to his shoulders. He is wearing black pants, a black T-shirt, and a zip-up hoodie. He is unkept and disheveled. He has poor eye contact. His affect is flat. He d escribes his mood is "fine." His thought process is tangential. His thought content, he denies aud itory and visual hallucinations. There is no evidence of paranoia or delusions. He denies any thou ghts, plans, or intents to hurt himself or anyone else. He is alert and oriented x3. His intellect appears to be somewhat below average, based upon his educational history as well as his fund of [employer] migdalia and vocabulary. His insight and judgment are both impaired. IMPRESSION: This is a 21-year-old male who is being admitted for his 3rd psychiatric inpatient admi ssion under very similar circumstances. He presents to the [facility] emergency dep artment intoxicated, high on marijuana, acting bizarre, disorganized, confused, oftentimes with inap propriate behavior. This time in the emergency room, he took a shower, was walking around naked. T he staff tried to tell him that was inappropriate behavior. The patient did not seem to be bothered by it or to pay the staff any mind. When the patient is inebriated or intoxicated, he has very alt ered mental status and he is very impulsive, uses poor judgment, does not abide by any social norms, his mood is erratic, he is labile, and he appears to be "out of it" as his girlfriend reports. Whe n patient is not intoxicated and when he has not been using substances, he is otherwise calm, antonio ative, pleasant, he is linear, coherent, and lucid. He can carry on conversations. He still has im paired judgment and insight and still makes poor decisions as evidenced by his unwillingness to foll ow up with any type of outpatient treatment upon his previous discharge, but these are signs and sym ptoms of his poor social and emotional development rather than signs or symptoms of a chronic mental illness. DIAGNOSES: 1. Substance-induced psychotic disorder. 2. Cannabis use disorder, severe. 3. Kava use disorder severe. 4. Alcohol use disorder, moderate, intermittent. 5. Psychosocial problems include homeless, unemployed, lack of social support, lack of resources, r ecently kicked out of his girlfriend's home. PLAN OF TREATMENT: 1. Admit to behavioral health inpatient unit on an M1 hold. 2. Monitor closely for safety and on suicide precautions. 3. The patient is not currently taking any medications and he shows no signs or symptoms of a psych iatric condition which would require psychotropic medications. 4. Endorse previous recommendations upon his discharge plan, which is to follow up with dual-diagno sis treatment but with a strong emphasis on getting residential or intensive outpatient substance us e disorder treatment, for reasons previously described in his discharge summary that this psychiatri st wrote on 03/08/2017. 5. Will engage patient in individual, group, and milieu therapies. 6. Fiberglass Laminator will contact the patient's parents. The patient states that his father has dasha aguilar said that he is going to come to [place] to pick the patient up and take him back home to [facility]. The patient says that he would be agreeable to doing that. 7. Estimated length of stay is 2-3 days. /[id number]/MODL
[2017-03-14] MEDS ORDERED: lamoTRIgine 25 MG TAB PO SCH (21:00)
[2017-03-15 06:31] VITALS: BP 127/77; PULSE 83; TEMP 97.4; O2SAT 98
--- NOTE | 2017-03-15 19:49 | BDS ---
[f rep st] BEHAVIORAL HEALTH DISCHARGE SUMMARY REASON FOR ADMISSION: This is a 21-year-old male, currently living with his girlfriend. The patien jen presented to the ED after an GEAR SHAPER SET UP OPERATOR at an [facility] Walk-in Clinic put the patient on an M1 hold. The benito ent was at the [facility] due to intoxication. However, the patient tested negative for all sub stances other than THC. The patient has history of abusing marijuana as well as kava. After the pa darline was tested by the [facility] and declared sober, an [facility] clinician believed the patient continued to d ecompensate into a gravely disabled state. The patient is not currently taking any medications. Ac cording to [facility], the patient's girlfriend called the police for a welfare check because the patient h ad not taken medications and was "out of it" and psychotic. Per the [facility] GEAR SHAPER SET UP OPERATOR, the patient denied lacy cidal ideation and denied any prior suicide attempts. The patient denied any auditory or visual jose francisco lucinations. The patient was recently admitted on 2 separate occasions to [address] [place] [address]. Once, on 2016, after several weeks of treatment, the patient eloped. The patient was readmitted on 7, with a diagnosis of schizoaffective disorder and substance-induced psychosis. However, during hi s stay on the unit, the patient quickly cleared. He no longer showed signs of altered mental state. He was not confused or disoriented. He refused to continue on psychiatric medications. He was ta gen off his psych medications and he continued to show no signs, symptoms or evidence of psychosis, rafael or depression. He was not paranoid or delusional. He did not endorse any auditory or visual hallucinations. He did not endorse any thoughts, plans or intent to hurt himself or anyone else. T kitty CHRISTIANSON at the time stated in his note that rather than court-ordered medications, would recommend residential substance abuse treatment as the first step to resolving the underlying cause of his rec urrent psychosis as well as a necessary initial step to ensuring long-term compliance and benefit fr om pharmacologic interventions. suggested that the family look at placing him in a facility in [facility] or if the patient chose to remain in [place] due to his probation, then family should alexandra t him entering into residential substance use disorder facility in this state. ADMITTING DIAGNOSES: 1. Substance-induced psychotic disorder. 2. Cannabis use disorder, severe. 3. Kava use disorder, severe. 4. Alcohol use disorder, moderate, intermittent. 5. Psychosocial problems include homelessness, unemployment, lack of social support, lack of resour juan, recently kicked out of his girlfriend's home. ADMISSION PHYSICAL EXAMINATION: Performed by Dr. Josiah Layne. Please see his H and P for detai ls. ADMISSION LABORATORY: White cell count was 8.5, hemoglobin was 14.3, hematocrit was 41, platelet co unt was 202. Sodium was 146, potassium 4.1, chloride 109, BUN 18, creatinine 0.7, glucose was 93. Urine tox screen was negative for all drugs of abuse. Although, the patient had a urine tox screen that was done at the [facility], which showed he was positive for marijuana. The patient's blood alcohol l evel was less than 10. HOSPITAL COURSE: This is a brief re-hospitalization since this is the patient's third stay on the npatient unit on [address] [place] [address] within the last month. Each time, he presents the same. He comes to the e mergency department acutely psychotic while intoxicated on marijuana, kava and alcohol. He presents with bizarre and erratic behavior, disoriented, confused, unable to make good decisions, impulsive, showing poor judgment and lack of insight. Within 24-48 hours post his ED visit, the patient is mo re alert and oriented. He is able to focus. He is linear and goal-directed. He does not show any evidence of rafael or psychosis. He has always denied any thoughts, plans or intent to harm himself. This time, the patient was started on Invega and Lamictal by the weekend covering psychiatrist, Dr. Nicole. Those are the same medications that the patient had agreed to take during his previous hosp italization but, after week, stated that he no longer wanted to be on them. Patient has historicall y been only taking medication while he is in the hospital. He was hospitalized in [place] in the all of 2015 and stopped medications immediately upon discharge. When he eloped from this facility o n 02/20/2017, he left without any medications, was off medications. When he returned on 02/26/2017, he was readmitted and initially agreed to take medications and then decided that he would not take medications. In this psychiatrist's opinion, this patient is neither reliable nor compliant. Until he shows an a bility to maintain outpatient treatment and actually go to his followup appointments, there is littl e benefit to starting him on medications that he will only take while he is in the hospital. Given the fact that those medications come with significant risk and the possibility for adverse affects w ith Lamictal and Invega including Partida-Scotty syndrome as well as cardiac arrhythmias, EPS, tard chetan dyskinesia, there does not seem to be a benefit to prescribing medications that the patient is u nwilling to take while the patient continues to use mood altering recreational drugs that are also h allucinogenic and induce the psychotic episodes that result in his being hospitalized. For that diego son, the MD has given strong recommendation to the patient and to the patient's family that he be en tered into residential or intensive outpatient substance use treatment so that he can get his substa nce use problem under control and that when he is sober for a sufficient period of time, a more accu rate diagnosis can be made and a more targeted treatment and intervention can be recommended. Hopef ully without the mood altering and judgment impairing affects of his recreational drugs, the patient will make better choices and decisions to continue with outpatient treatment and remain compliant o n whatever medications his mental health providers deem appropriate at the time. CONDITION ON DISCHARGE: The patient is stable. His affect was euthymic. He is looking forward to returning home with his father and staying in his family's home where he has a lot of support and wi ll be able to get mental health treatment closer to where he lives in [place]. DISCHARGE MEDICATIONS: The patient is not being discharged on any medications for the reasons outli jyotsna in the hospital course above. DISCHARGE DIAGNOSES: Are as follows: 1. Substance induced psychotic disorder. Resolved. 2. Cannabis use disorder, severe. 3. Kava use disorder, severe. 4. Alcohol use disorder, moderate, intermittent. 5. Psychosocial stressors include that the patient has been homeless, unemployed, lacking social [place]ella p[place] and resources and recently kicked out of his girlfriend's home. Hopefully, some of these prob lems will be addressed as he returns to live with his family and gets greater levels of social suppo rt in his hometown where he is familiar. DISPOSITION: Patient left the hospital with his father. The plan was to drive back to [place] and stay with his family. Father has stated his intention to look into intensive outpatient substance use treatment or possibly residential substance use treatment or dual diagnosis treatment closer to where the family lives in [place]. FOLLOWUP: The patient does not have any followup appointments at this time because father stated th at he will look for treatment once he returns home to [place]. LEGAL COURSE: The patient was converted to voluntary status with the expiration of his M1 hold. /[id number]/MODL
== END 2017-03-15 13:40 | disposition home or self-care (01) | DRG 897 ==
LOC: EDUNIT# → BBEH 03-13 21:05
PROVIDERS: ADMIT Psychiatry & Neurology Behavioral Neurology & Neuropsychiatry; ATTEND Psychiatry & Neurology Behavioral Neurology & Neuropsychiatry
DX: F10.14 Alcohol abuse with alcohol-induced mood disorder (principal); F12.159 Cannabis abuse with psychotic disorder, unspecified; F17.210 Nicotine dependence, cigarettes, uncomplicated; Z91.14 Patient's other noncompliance with medication regimen; Z59.0 Homelessness
CPT/HCPCS: 80305; G0480